=== PATIENT | female | born 1945 | race Caucasian/White ===

== ENCOUNTER → 2018-12-11 16:34 | Outpatient (CLI) | payer MEDICARE, OTHER, SELFPAY ==
--- NOTE | 2018-12-11 | DI.MG.S_ITS ---
BILATERAL DIGITAL SCREENING MAMMOGRAM 3D/2D WITH CAD: 12/11/2018 CLINICAL: Routine screening. Family history of breast cancer. Comparison is made to exams dated: 09/26/2017 mammogram, 09/25/2016 mammogram, and 09/09/2015 mammogram - [facility]. The tissue of both breasts is heterogeneously dense. This may lower the sensitivity of mammography. Current study was also evaluated with a Computer Aided Detection (CAD) system. No significant masses, calcifications, or other findings are seen in either breast. There has been no significant interval change. IMPRESSION: NEGATIVE There is no mammographic evidence of malignancy. A 1 year screening mammogram is recommended. This exam was interpreted at Station ID: [id number]. NOTE: For mammograms, a report in lay terms will be sent to the patient. Approximately 15% of breast malignancies will not be visualized mammographically. In the management of a palpable breast mass, a negative mammogram must not discourage biopsy of a clinically suspicious lesion. Electronically Signed By: Ritchie rae/lenin:12/11/2018 17:25:54 letter sent: Normal Exam ACR BI-RADS Category 1: Negative 3341F
== END ==
PROVIDERS: Family Provider Family Medicine; PCP Family Medicine; Visit Provider Family Medicine
DX: Z12.31 Encounter for screening mammogram for malignant neoplasm of breast (principal); Z80.3 Family history of malignant neoplasm of breast
CPT/HCPCS: 77063; 77067

== ENCOUNTER 2019-12-08 11:51 | Day surgery (SDC) | payer MEDICARE, OTHER, SELFPAY ==
--- NOTE | 2019-12-08 10:54 | PM.HP.1 ---
History of Present Illness History of Present Illness Date Patient Seen: 12/08/19 Time Patient Seen: 12:55 Chief complaint: [id number] SCREENING COLONOSCOPY Narrative: 74 year old female comes in today for consideration of a screening colonoscopy. Last colonoscopy in 2007 showed a small hyperplastic polyp in the sigmoid colon and marked diverticulosis in the sigmoid and transverse colon. There have been no lower GI symptoms suggesting disease such as change in bowel habits, bleeding, abdominal pain or anemia. There's been no family history of colon cancer or colon polyps. Overall health issues have been stable, including no major cardiac events for at least 6 weeks. PCP: Dr. Doran Past medical history: Dysuria frequency syndrome Achilles tendinitis Left breast lump Hypertension Hyperlipidemia Osteopenia Past surgical history: Inguinal hernia, 1979 Left breast cyst removal, 1984 Family history: No colon cancer or colon polyps. 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 Meds Home Medications and Allergies Home Medications Medication Instructions Recorded Confirmed Type Fish Oil (#FISH OIL CONCENTRATE) 1 sgl PO Q DAY #0 04/22/12 12/08/19 History ascorbic acid (vitamin C) 1,000 mg PO QDAY #0 04/22/12 12/08/19 History lisinopril 10 mg PO QDAY #0 04/22/12 12/08/19 History loratadine [Claritin] 10 mg PO QDAY #0 04/22/12 12/08/19 History Allergies Allergy/AdvReac Type Severity Reaction Status Date / Time No Known Drug Allergies Allergy Verified 12/08/19 12:08 Review of Systems Review of Systems ROS: Yes All systems reviewed with the patient and are negative except as otherwise documented Exam Narrative Exam Narrative: GENERAL: Alert and oriented, appearing stated age and in no acute distress. HEENT: Head normocephalic/atraumatic. LUNGS: Clear to ausculation bilaterally, no wheezes, rhonchi or rales. CV: Normal S1 and S2 with regular rate and rhythm, no audible murmurs, rubs or gallops. ABDOMEN: Soft, non-tender, non-distended, no organomegaly. Positive bowel sounds. EXTREMITIES: No clubbing, cyanosis, or edema. NEURO: Cranial nerves II through XII grossly intact, no focal deficits. PSYCH: Alert and oriented x 3. SKIN: No concerning lesions. Assessment & Plan Assessment & Plan narrative: 1. Screening for colon cancer 2. History of hyperplastic polyp 3. History of diverticulosis Plan for colonoscopy. The nature and character of the procedure as well as anticipated results were discussed. The possibility of not completing the procedure was also discussed. Possible complications including aspiration pneumonia, bleeding, perforation and reaction to medications either for sedation or preparation and missed lesions were discussed. Questions were answered and proceeding to the colonoscopy was elected. Informed consent signed. I sincerely appreciate the referral allowing me to participate in this patient's care. Please contact me with any questions or concerns.
--- NOTE | 2019-12-08 10:59 | PM.OP.ENDO ---
Operative Date/Time/Diagnoses Date of procedure: 12/08/19 Time of procedure: 13:13 Pre-op diagnosis: 1. Screening for colon cancer 2. History of diverticulosis 3. History of hyperplastic polyp, sigmoid Post-op diagnosis: other (1. Incomplete colonoscopy secondary to poor prep, 2. Severe diverticulosis, sigmoid colon) Procedure & Clinicians Study performed: Colonoscopy Same procedure as scheduled: No Indications: 1. Screening for colon cancer 2. History of diverticulosis 3. History of hyperplastic polyp, sigmoid Surgeon: Flavia Young Procedure Notes SCOAP/Timeout: 13:12 Procedure in detail: ENDOSCOPIST: Flavia Young MD Sedation RN: Renuka Garcia RN Sedation start time: 13:13 Sedation end time: 14:13 PROCEDURE: INCOMPLETE COLONOSCOPY INDICATIONS: 1. Screening for colon cancer 2. History of diverticulosis 3. History of sigmoid hyperplastic polyp MEDICATION: Levsin 0.125 mg sublingual, incremental doses of Versed and fentanyl until appropriate level sedation achieved. ASA CLASS: 2 COMPLICATIONS: None EXTENT OF PROCEDURE: 50 cm. QUALITY OF PREP: Poor with portions of solid stool throughout. PROCEDURE: Prior to insertion of the colonoscope, a digital rectal examination was accomplished with circumferential palpation of the distal rectal mucosa without significant findings being noted. The high-definition pediatric colonoscope was passed into the rectum and extremely poor prep was noted. Secondary to severe diverticulosis, copious amounts of solid stool balls were noted throughout and copious washing was done to try to remove the stool. The 1st colonoscope became clogged with stool and it was replaced with a 2nd colonoscope. Procedure was abandoned at 50 cm secondary to poor prep. IMPRESSION: 1. Incomplete colonoscopy secondary to poor prep 2. Severe diverticulosis, sigmoid colon PLAN: 1. Repeat colonoscopy in 1 year secondary to poor prep. Recommend CT colonography secondary to severe diverticulosis. The possibility of a missed lesion including a malignancy has been discussed with the patient previously. Potential alarm symptoms have been discussed and should be reported immediately. Scope withdrawal time: N/A Sedation minutes: 60 Specimen(s): none sent Complications: none Post-procedure Disposition: PACU
[2019-12-08] MEDS: SODIUM CHLORIDE 0.9% 1,000 ML 200 ML IV ×2 (12:12→13:57)
[2019-12-08 12:14] VITALS: BP 141/84; PULSE 90; RESP 14; TEMP 36.5; O2SAT 98
[2019-12-08 12:15] VITALS: BMI 24.3
[2019-12-08] MEDS: HYOSCYAMINE 0.125 MG TABLET PO (13:04)
[2019-12-08] MEDS: MIDAZOLAM 5 MG/5 ML VIAL IV (14:17)
[2019-12-08] MEDS: fentaNYL 250 MCG/5 ML INJ IV (14:18)
[2019-12-08 14:28] VITALS: BP 109/73; PULSE 66; RESP 16; TEMP 36.7; O2SAT 100
[2019-12-08 14:36] VITALS: BP 117/71; PULSE 71; RESP 68; TEMP 36.7; O2SAT 100
== END 2019-12-08 15:00 | disposition home or self-care (01) ==
PROVIDERS: Family Provider Family Medicine; PCP Family Medicine; Referring Provider Family Medicine; Visit Provider Student in an Organized Health Care Education/Training Program
PROC: 0DJD8ZZ Inspection of Lower Intestinal Tract, Via Natural or Artificial Opening Endoscopic (ICD-10-PCS; CPT 45378; principal; 2019-12-08 13:00)
DX: Z12.11 Encounter for screening for malignant neoplasm of colon (principal); Z86.010 Personal history of colon polyps; K57.30 Diverticulosis of large intestine without perforation or abscess without bleeding
CPT/HCPCS: G0104; J2250; J3010

== ENCOUNTER → 2020-03-26 13:02 | Outpatient (CLI) | payer MEDICARE, OTHER, SELFPAY ==
--- NOTE | 2020-03-26 13:05 | DI.MG.S_ITS ---
BILATERAL DIGITAL SCREENING MAMMOGRAM 3D/2D WITH CAD: 03/26/2020 CLINICAL: Routine screening. Family history of breast cancer. Comparison is made to exams dated: 12/11/2018 mammogram, 09/26/2017 mammogram, and 09/25/2016 mammogram - [facility]. The tissue of both breasts is heterogeneously dense. This may lower the sensitivity of mammography. Current study was also evaluated with a Computer Aided Detection (CAD) system. No significant masses, calcifications, or other findings are seen in either breast. There has been no significant interval change. IMPRESSION: NEGATIVE There is no mammographic evidence of malignancy. A 1 year screening mammogram is recommended. This exam was interpreted at Station ID: [id number]. NOTE: For mammograms, a report in lay terms will be sent to the patient. Approximately 15% of breast malignancies will not be visualized mammographically. In the management of a palpable breast mass, a negative mammogram must not discourage biopsy of a clinically suspicious lesion. Electronically Signed By: Sharon cobian/lenin:03/26/2020 18:53:39 letter sent: Normal Exam ACR BI-RADS Category 1: Negative 3341F
== END ==
PROVIDERS: Family Provider Family Medicine; PCP Family Medicine; Referring Provider Family Medicine; Visit Provider Family Medicine
DX: Z12.31 Encounter for screening mammogram for malignant neoplasm of breast (principal); Z80.3 Family history of malignant neoplasm of breast
CPT/HCPCS: 77063; 77067

== ENCOUNTER → 2020-11-03 11:54 | Outpatient (CLI) | payer MEDICARE, OTHER, SELFPAY ==
[2020-11-03] MEDS: COVID-19 VACC #1, MRNA(MOD) 100 MCG/0.5 ML VIAL IM (12:12)
== END ==
PROVIDERS: Family Provider Family Medicine; PCP Family Medicine; Visit Provider Internal Medicine
DX: Z23 Encounter for immunization (principal)
CPT/HCPCS: 0011A; 91301

== ENCOUNTER → 2020-12-01 12:09 | Outpatient (CLI) | payer MEDICARE, OTHER, SELFPAY ==
[2020-12-01] MEDS: COVID-19 VACC #2, MRNA(MOD) 100 MCG/0.5 ML VIAL IM (12:13)
== END ==
PROVIDERS: Visit Provider Internal Medicine
DX: Z23 Encounter for immunization (principal)
CPT/HCPCS: 0012A; 91301

== ENCOUNTER → 2021-03-24 14:49 | Outpatient (CLI) | payer MEDICARE, OTHER, SELFPAY ==
--- NOTE | 2021-03-24 14:54 | DI.US.S_ITS ---
PROCEDURE: US PERIPH VENOUS LOW EXTREM RT INDICATIONS: Pain in right leg TECHNIQUE: Real-time imaging, as well as color and pulse Doppler interrogation, were performed of the lower extremity deep veins from the inguinal ligament to the popliteal fossa. COMPARISON: None. FINDINGS: There is echogenic thrombus within the peroneal vein at the level of the ankle. The common femoral, femoral and popliteal veins are normally compressible and free of intraluminal thrombus. Color and pulse Doppler demonstrate normal phasic intraluminal flow. There is normal augmentation response to distal compression maneuver. IMPRESSION: Acute occlusive thrombus within the peroneal vein at the level of the ankle. No deep venous thrombosis identified elsewhere. Dictated by: Matthew Bran M.D. on 03/24/2021 at 15:33 Approved by: Matthew Bran M.D. on 03/24/2021 at 15:34
== END ==
PROVIDERS: PCP Family Medicine; Referring Provider Family Medicine; Visit Provider Family Medicine
DX: I82.451 Acute embolism and thrombosis of right peroneal vein (principal); R60.0 Localized edema; M79.604 Pain in right leg
CPT/HCPCS: 93971

== ENCOUNTER → 2021-03-28 11:03 | Outpatient (CLI) | payer MEDICARE, OTHER, SELFPAY ==
--- NOTE | 2021-03-28 11:06 | DI.MG.S_ITS ---
BILATERAL DIGITAL SCREENING MAMMOGRAM 3D/2D WITH CAD: 03/28/2021 CLINICAL: Routine screening. Family history of breast cancer. Comparison is made to exams dated: 03/26/2020 mammogram, 12/11/2018 mammogram, and 09/26/2017 mammogram - [facility]. The tissue of both breasts is heterogeneously dense. This may lower the sensitivity of mammography. Current study was also evaluated with a Computer Aided Detection (CAD) system. No significant masses, calcifications, or other findings are seen in either breast. There has been no significant interval change. IMPRESSION: NEGATIVE There is no mammographic evidence of malignancy. A 1 year screening mammogram is recommended. This exam was interpreted at Station ID: [id number]. NOTE: For mammograms, a report in lay terms will be sent to the patient. Approximately 15% of breast malignancies will not be visualized mammographically. In the management of a palpable breast mass, a negative mammogram must not discourage biopsy of a clinically suspicious lesion. Electronically Signed By: Sharon cobian/lenin:03/28/2021 13:21:09 letter sent: Normal Exam ACR BI-RADS Category 1: Negative 3341F
== END ==
PROVIDERS: PCP Family Medicine; Referring Provider Family Medicine; Visit Provider Family Medicine
DX: Z12.31 Encounter for screening mammogram for malignant neoplasm of breast (principal); Z80.3 Family history of malignant neoplasm of breast
CPT/HCPCS: 77063; 77067

== ENCOUNTER → 2021-06-08 16:21 | Outpatient (CLI) | payer MEDICARE, OTHER, SELFPAY ==
--- NOTE | 2021-06-08 | DI.RAD.S_ITS ---
PROCEDURE: XR KNEE RT 3V INDICATIONS: right knee pain TECHNIQUE: 3 views of the knee were acquired. COMPARISON: None. FINDINGS: Bones: No fractures or dislocations. No suspicious bony lesions. Mild tricompartmental periarticular osteophyte formation and joint space narrowing. Bony excrescence along the medial aspect of the distal femoral metadiaphysis likely and osteo chondroma. Soft tissues: Small joint effusion. No suspicious soft tissue calcifications. IMPRESSION: Mild tricompartmental knee joint degeneration. Presumed osteochondroma involving the distal femoral metaphysis. Recommend comparison with prior imaging of the right knee and if none are available, follow-up plain film in 3 months is recommended. Dictated by: Haja Lackey [facility] Interpreted: Prince Green MD on 06/08/2021 at 16:47 Transcribed by: JUAN on 06/08/2021 at 16:49 Approved by: Prince Green M.D. on 06/08/2021 at 17:19
== END ==
PROVIDERS: PCP Family Medicine; Referring Provider Family Medicine; Visit Provider Family Medicine
DX: M25.561 Pain in right knee (principal); M17.11 Unilateral primary osteoarthritis, right knee
CPT/HCPCS: 73562

== ENCOUNTER → 2021-06-30 12:05 | Outpatient (CLI) | payer MEDICARE, OTHER, SELFPAY ==
--- NOTE | 2021-06-30 | DI.US.S_ITS ---
PROCEDURE: US [facility] VENOUS LOW EXTREM RT INDICATIONS: F/U DVT RIGHT LEG TECHNIQUE: Real-time imaging, as well as color and pulse Doppler interrogation, were performed of the lower extremity deep veins from the inguinal ligament to the popliteal fossa. COMPARISON: [facility], [facility]] VENOUS LOW EXTREM RT, 03/24/2021, 14:08. FINDINGS: Stable distal venous thrombosis can be seen within the peroneal vein at the level of the ankle. No additional findings of venous thrombosis can be seen. A Parry's cyst is seen that measures 5.4 x 1.7 x 3.9 cm. IMPRESSION: Stable distal venous thrombosis within the peroneal vein at the level of the ankle, without more proximal venous thrombosis identified. Dictated by: Sanchez Virgen M.D. on 06/30/2021 at 12:49 Approved by: Sanchez Virgen M.D. on 06/30/2021 at 12:50
== END ==
PROVIDERS: PCP Family Medicine; Referring Provider Family Medicine; Visit Provider Family Medicine
DX: I80.209 Phlebitis and thrombophlebitis of unspecified deep vessels of unspecified lower extremity (principal)
CPT/HCPCS: 93971

== ENCOUNTER → 2021-09-22 12:01 | Outpatient (CLI) | payer MEDICARE, OTHER, SELFPAY ==
--- NOTE | 2021-09-22 12:04 | DI.US.S_ITS ---
PROCEDURE: PERIP VENOUS LOW EXTREM RT INDICATIONS: DVT FOLLOW UP TECHNIQUE: Real-time imaging, as well as color and pulse Doppler interrogation, were performed of the lower extremity deep veins from the inguinal ligament to the popliteal fossa. COMPARISON: [facility], [facility] VENOUS LOW EXTREM RT, 03/24/2021, 14:08. [facility], PERIP VENOUS LOW EXTREM RT, 06/30/2021, 12:27. FINDINGS: Stable chronic thrombus within the right peroneal vein which as filling defect and is noncompressible. The common femoral, femoral and popliteal veins are normally compressible, and free of intraluminal thrombus. Color and pulse Doppler demonstrate normal phasic intraluminal flow. There is normal augmentation response to distal compression maneuver. 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 Dictated by: Salome Hackett M.D. on 09/22/2021 at 17:40 Approved by: Salome Hackett M.D. on 09/22/2021 at 17:43
== END ==
PROVIDERS: PCP Family Medicine; Referring Provider Family Medicine; Visit Provider Family Medicine
DX: I82.551 Chronic embolism and thrombosis of right peroneal vein (principal)
CPT/HCPCS: 93971

== ENCOUNTER → 2022-04-03 15:02 | Outpatient (CLI) | payer MEDICARE, OTHER, SELFPAY ==
--- NOTE | 2022-04-03 | DI.US.S_ITS ---
PROCEDURE: US PERIPH VENOUS LOW EXTREM RT INDICATIONS: DVT FOLLOW UP TECHNIQUE: Real-time imaging, as well as color and pulse Doppler interrogation, were performed of the lower extremity deep veins from the inguinal ligament to the popliteal fossa. COMPARISON: , , US [facility] VENOUS LOW EXTREM RT, 09/22/2021, 12:23. FINDINGS: The common femoral, femoral and popliteal veins are normally compressible, and free of intraluminal thrombus. Color and pulse Doppler demonstrate normal phasic intraluminal flow. There is normal augmentation response to distal compression maneuver. Complex Parry's cyst measuring up to 7.8 cm. IMPRESSION: No acute or chronic DVT identified on today's examination. Popliteal Parry's cyst measuring up to 7.8 cm. Dictated by: Haja Lackey [facility] Interpreted: Anna Bravo MD on 04/03/2022 at 16:17 Transcribed by: ALICIA on 04/03/2022 at 16:18 Approved by: Anna Bravo MD, PhD on 04/03/2022 at 17:37
--- NOTE | 2022-04-03 | DI.MG.S_ITS ---
BILATERAL DIGITAL SCREENING MAMMOGRAM 3D/2D WITH CAD: 04/03/2022 CLINICAL: Routine screening. Family history of breast cancer. Comparison is made to exams dated: 03/28/2021 mammogram, 12/11/2018 mammogram, and 03/26/2020 mammogram - [facility]. The tissue of both breasts is heterogeneously dense. This may lower the sensitivity of mammography. Current study was also evaluated with a Computer Aided Detection (CAD) system. There are benign calcifications in the right breast. There are mole markers on the right breast. There is a mole marker on the left breast. No significant masses, calcifications, or other findings are seen in either breast. There has been no significant interval change. IMPRESSION: BENIGN There is no mammographic evidence of malignancy. A 1 year screening mammogram is recommended. Based on the Tyrer Cuzick model (a risk assessment model) the patient's lifetime risk is 5.9% and her 10 year risk is 5.9%. According to the ACR, ACS, and NCCN guidelines, an annual breast MRI exam along with mammogram is recommended if the patient's lifetime risk is 20% or greater. This exam was interpreted at Station ID: [id number]. NOTE: For mammograms, a report in lay terms will be sent to the patient. Approximately 15% of breast malignancies will not be visualized mammographically. In the management of a palpable breast mass, a negative mammogram must not discourage biopsy of a clinically suspicious lesion. Electronically Signed By: Rohan Matias acr/lenin:04/03/2022 16:20:04 letter sent: Normal Exam ACR BI-RADS Category 2: Benign Finding(s) 3342F
== END ==
PROVIDERS: PCP Family Medicine; Referring Provider Family Medicine; Visit Provider Family Medicine
DX: Z12.31 Encounter for screening mammogram for malignant neoplasm of breast (principal); Z80.3 Family history of malignant neoplasm of breast; Z09 Encounter for follow-up examination after completed treatment for conditions other than malignant neoplasm; Z86.718 Personal history of other venous thrombosis and embolism; M71.21 Synovial cyst of popliteal space [Baker], right knee
CPT/HCPCS: 77063; 77067; 93971

== ENCOUNTER → 2022-05-11 14:30 | Outpatient (CLI) | payer MEDICARE, OTHER, SELFPAY ==
[2022-05-11 16:00] LABS: Add Manual Diff / Slide Review NO; Basophils Absolute Auto 0 /uL (0-100); Basophils Percent Auto 0.5 % (0-2); Eosinophils Absolute Auto 100 /uL (0-450); Eosinophils Percent Auto 2.3 % (2-4); Hematocrit 39.5 % (36-46); Hemoglobin 13.5 g/dL (12.0-16.0); Lymphocytes Absolute Auto 1400 /uL (1100-4500); Lymphocytes Percent Auto 22.4 % (25-40); Mean Corpuscular Hemoglobin 29.8 PG (26-34); Mean Corpuscular Volume 87.6 fL (80-100); Monocytes Absolute Auto 500 /uL (0-900); Monocytes Percent Auto 8.4 % (3-14); Neutrophils Absolute Auto 4200 /uL (1500-7000); Neutrophils Percent Auto 66.4 % (50-75); Platelet Count 248 X10^3/uL (150-400); Red Blood Cell Count 4.51 X10^6/uL (4.0-5.2); Red Cell Distribution Width 13.1 % (11.6-14.8); White Blood Cell Count 6.4 X10^3/uL (4.5-11.0)
[2022-05-11 21:05] LABS: BUN Creatinine Ratio 28.4 (6-22); Blood Urea Nitrogen 21 mg/dL (7-17); Carbon Dioxide 26 mmol/L (22-32); Chloride 105 mmol/L (98-107); Estimated Glomerular Filt Rate > 60 mL/min (>60); Glucose 108 mg/dL (80-110); HEMOLYSIS 23 (0-50); Potassium 4.4 mmol/L (3.4-5.1); Sodium 138 mmol/L (137-145)
== END ==
PROVIDERS: PCP Family Medicine; Referring Provider Orthopaedic Surgery; Visit Provider Orthopaedic Surgery
DX: Z01.818 Encounter for other preprocedural examination (principal); Z01.812 Encounter for preprocedural laboratory examination
CPT/HCPCS: 36415; 80048; 85025; 93005

== ENCOUNTER → 2022-06-05 11:28 | Outpatient (CLI) | payer MEDICARE, OTHER, SELFPAY ==
[2022-06-05 12:01] LABS: COVID19 -Nasal RAPID Negative (Negative)
== END ==
PROVIDERS: PCP Family Medicine; Referring Provider Orthopaedic Surgery; Visit Provider Orthopaedic Surgery
DX: Z20.822 Contact with and (suspected) exposure to COVID-19 (principal)
CPT/HCPCS: 87635; C9803

== ENCOUNTER 2022-06-08 09:46 | Observation (INO) | payer MEDICARE, OTHER, SELFPAY ==
[2022-05-31 09:23] VITALS: BMI 25.0
[2022-06-07] VITALS (22 sets, daily range): BP systolic 73–153; BP diastolic 34–95; PULSE 52–95; RESP 10–21; TEMP 35.6–36.8; O2SAT 96–100; BMI 24.7
--- NOTE | 2022-06-07 06:00 | DI.RAD.S_ITS ---
PROCEDURE: XR KNEE RT 1TO2V INDICATIONS: right total knee TECHNIQUE: 3 views of the knee were acquired. COMPARISON: [facility], , XR KNEE RT 3V, 06/08/2021, 16:26. FINDINGS: Bones: No fractures or dislocations. No suspicious bony lesions. Medial distal femoral osteochondroma is again noted, similar prior exam. Total knee arthroplasty in good position. Postprocedural soft tissue air present. No fracture. Soft tissues: No joint effusion. No suspicious soft tissue calcifications. IMPRESSION: Total right knee arthroplasty in good position. Stable distal femoral osteochondroma exostosis Approved by: dAithya De La Cruz M.D. on 06/07/2022 at 13:49
[2022-06-07] MEDS: CELECOXIB 200 MG CAPSULE PO (11:22)
[2022-06-07] MEDS: LACTATED RINGERS 1,000 ML 42 ML IV ×2 (11:22→14:23)
[2022-06-07] MEDS: ACETAMINOPHEN 325 MG TABLET 975 MG PO (11:22)
--- NOTE | 2022-06-07 11:40 | PM.PREOP ---
Pre-operative Note COVID-19 COVID-19 status: Negative Result date/Date tested (Pos, Neg/Pending): 06/05/22 Interval Note History & Physical reviewed/Exam performed by Physician: Yes Changes to H&P: No
[2022-06-07] MEDS: CEFAZOLIN 2 GM/100 ML PREMIX 100 ML IV (12:22)
[2022-06-07] MEDS: TRANEXAMIC ACID 1,000 MG VIAL 2000 MG INJ ×2 (12:25→13:28)
--- NOTE | 2022-06-07 12:43 | SUR.OPER ---
Supine on padded OR bed. Pillow under head, arms secured on padded armboards <90 degree abduction. Safety belt across torso. Non-operative leg secured with tape over blanket over lower leg. Operative leg secured in [place].
[2022-06-07] MEDS: BUPIVACAINE LIPOSOME 266 MG/20 ML VIAL INJ (12:53)
[2022-06-07] MEDS: MORPHINE 4 MG/ML INJ INJ (12:53)
[2022-06-07] MEDS: BUPIVACAINE 0.5% W/ EPI (PF) 30 ML VIAL INJ (12:56)
--- NOTE | 2022-06-07 13:45 | P.OP_ITS ---
Operative Date/Time/Diagnoses Date of procedure: 06/07/22 Time of procedure: 13:45 Pre-op diagnosis: Right knee osteoarthritis Post-op diagnosis: same Procedure & Clinicians Procedure: Right total knee replacement Same procedure as scheduled: Yes Indications: The patient has had progressively worsening right knee pain with radiographic changes consistent with arthritis. Non-operative management has failed and the patient has requested total knee replacement. The risks, benefits and alternatives to surgery were discussed with the patient prior to proceeding. Risks discussed included, but were not limited to, failure to relieve pain, stiffness, infection, nerve damage, deep venous thrombosis, pulmonary embolism, stroke, coma, heart attack, permanent paralysis and , as well as the potential need for eventual revision of the prosthetic. Surgeon: Jarvis Hobbs Farm Operations Manager: eJan Rubio Click Yes if Unassisted: No Anesthesia Type: General, Spinal and Local Operative Notes Findings: Severe medial and moderate patellofemoral and lateral osteoarthritis. Closure Type: primary Specimen(s): none sent Prosthetic devices, grafts, tissues, transplants, or devices: Implants used in this procedure were manufactured by the [employer] and [employer] and included the BCS II Journey total knee replacement with a size 6 right cobalt chromium femoral component, a size 6 right non porous tibial base plate, a 9 mm cross-linked polyethylene tibial insert and a 32 mm oval Dayami II patella. Applied: implant(s) Estimated Blood Loss (mL): 25 Blood products transfused: none Tourniquet time (min): 46 Procedure in detail: The patient was seen in the pre-operative area, where the patient identified the right knee as the operative site and this was marked with my initials. The patient received pre-operative antibiotics, and was taken to the operating room and placed on the operative table in the supine position. After satisfactory anesthesia, a time clock mechanic out was performed. The right leg was encircled with a tourniquet about the proximal thigh, and the leg was prepared from the toes to the tourniquet with ChloroPrep in the usual fashion and draped through sterile drapes. The leg was elevated and exsanguinated with Eschmark bandage and the tourniquet inflated to 250 mmHg pressure. The knee was approached through an approximately 18 cm incision centered over the patella and carried into the knee through a medial parapatellar arthrotomy. The anterior osteophytes and soft tissues were removed. The rotational landmarks of [place]'s line and the transepicondylar axis were marked on the femur with electrocautery, and intramedullary guide holes for the femur and tibia were created. The distal femoral cut was made in 6 degrees of valgus using the intramedullary guide at the primary cut setting. The proximal tibial cut was then made using the intramedullary guide, taking 9 mm of bone off the less involved side. The extension gap was checked and the rotation of the femoral component confirmed with the gap balancing system. The anterior, posterior and chamfer cuts were then made. The posterior osteophytes and soft tissues were then removed. The posterior capsule was injected with part of a mixture of 60 ml 0.25% Marcaine mixed with 20 ml Exparel and 4 mg of morphine for post-operative pain control. The remainder of this mixture was injected into the capsule and subcutaneous tissues during cement curing. The tibia was prepared with the rotation set by an extra medullary guide. Trial tibial and femoral components were then placed and the intercondylar notch cut through the femoral trial. Range of motion was 0-135 degrees, with good stability throughout the range. The patella was then cut to accommodate the patellar prosthetic. There was no need for a lateral release. The trials were then removed, and the femoral hole plugged with a bone plug. The bone was prepared with pulsatile lavage, and dried with a sponge. Cement was applied and the final prosthetics placed. Excess cement was removed during and after cement curing. After confirming there was no extruded cement posteriorly, the final tibial insert was placed. The knee was copiously irrigated and the tourniquet deflated. Hemostasis was obtained. The capsule was closed with interrupted # 2 polyester suture. The subcutaneous layer was closed with 3-0 Vicryl, and the skin with a running 3-0 V-Lock suture and Dermabond. An Aquacel Ag dressing was applied and the patient was taken to recovery having tolerated the procedure well. The services of Mr. Rubio were required as a skilled assistant banquet manager to provide retraction and exposure and positioning of the limb for this case. If he had not been available the case would have taken considerably longer at greater risk to the patient. Complications: none Post-operative Condition: stable Disposition: PACU Plan for aftercare: The patient will be maintained on a standard total knee replacement protocol with weight bearing as tolerated. The patient will receive aspirin and sequential compression devices for DVT prophylaxis. The patient will be discharged home when safe for the home environment.
--- NOTE | 2022-06-07 14:35 | SUR.PHASEI ---
Report called to Racquel Alvares RN
--- NOTE | 2022-06-07 15:06 | SUR.PHASEI ---
Patient transferred by stretcher to the floor with her belongings bag. Patient transferred to the bed by slider board. Patient was incontinent of urine during the transfer. VS stable. Right knee dressing CDI. IV saline locked. Report given to
[2022-06-07] MEDS: LACTATED RINGERS 1,000 ML 100 ML IV (15:30)
[2022-06-07] MEDS: IBUPROFEN 400 MG TABLET PO ×2 (17:03→20:44)
--- NOTE | 2022-06-07 17:15 | PC.NURSE ---
Pt arrived from PACU @ 1450 A/O denies discomfort. LR infusing into LFA @ 100cc/hr via pump w/o incidence. Aquacell/ Hima Dsg to right knee CDI Call li8ght w/in reach, pt calls appropriately for needs. Continue w/plan of care.
[2022-06-07] MEDS: DOCUSATE 100 MG CAPSULE PO (20:41)
[2022-06-07] MEDS: ASPIRIN EC 81 MG TABLET PO (20:41)
[2022-06-07] MEDS: lisinopriL 10 MG TABLET PO (20:42)
[2022-06-07] MEDS: LORATADINE 10 MG TABLET PO (20:44)
[2022-06-08] MEDS: ACETAMINOPHEN 325 MG TABLET 650 MG PO ×2 (00:42→05:58)
[2022-06-08] MEDS: IBUPROFEN 400 MG TABLET PO ×3 (00:42→08:46)
[2022-06-08] MEDS: LACTATED RINGERS 1,000 ML 100 ML IV (00:47)
[2022-06-08 01:07] VITALS: BP 121/64; PULSE 75; RESP 17; TEMP 36.3; O2SAT 95
[2022-06-08 05:08] VITALS: BP 112/65; PULSE 71; RESP 17; TEMP 36.3; O2SAT 95
--- NOTE | 2022-06-08 07:13 | PM.DS.1 ---
History of Present Illness History of Present Illness Date Patient Seen: 06/08/22 Time Patient Seen: 07:13 Chief complaint: right tka Narrative: The history and physical are contained in the chart previously completed note. Please refer to that note for this information. Discharge Providers Provider Date of admission: June 07, 2022 Discharge Date: 06/08/22 Primary care physician: Alexys Norwood MD Consults: 06/07/22 15:04 Consult to Discharge Planning Routine Comment: Consult to Physical Therapy Evaluate & Treat Comment: Physician Instructions: postop TKA protocol Discharge provider: Jarvis Hobbs MD Summary Hospital Course Discharge Diagnosis: 1. Right knee osteoarthritis Hospital Course: The patient was admitted to the hospital and taken directly to the operating room on June 07, 2022. She underwent a right total knee replacement without complications. On postoperative day 1 she was comfortable and it is anticipated she will be ready for discharge later in the day. Status at Discharge Cognitive/behavioral status at discharge: at baseline, oriented Functional status at discharge: uses cane/walker Overall status at discharge: patient is progressing back to baseline Time Spent with Patient Time spent: Less than 30 minutes Exam Vital Signs (past 8 hours): - 06/08/22 01:07 06/08/22 05:08 Temperature 97.3 F L 97.4 F L Pulse Rate 75 71 Respiratory Rate 17 17 Blood Pressure 121/64 112/65 Pulse Oximetry 95 95 Oxygen Flow Rate 0 0 Oxygen Delivery Method Room Air Oxygen Flow Rate 0 Narrative Exam Narrative: Right knee wound is dressed with no drainage on the bandage. Calf is soft. Light touch and motion are intact in the right lower extremity. [facility] Medical History (Updated 05/31/22 @ 10:16 by Jennifre Vega RN) Anesthesia complication BCC (basal cell carcinoma) Diverticulitis Diverticulosis DVT (deep venous thrombosis) (03/2021) Easy bruisability History of Mohs micrographic surgery for skin cancer HLD (hyperlipidemia) HTN (hypertension) Raynaud's syndrome Sinus drainage Surgical History (Updated 05/31/22 @ 10:15 by Jennifer Vega RN) Hx of colonoscopy Hx of hernia repair Hx of removal of cyst Hx of tonsillectomy Social History household members: spouse Smoking Status: Never smoker alcohol intake: current Discharge Assessment & Plan Assessment and Plan Assessment: Stable postoperative day 1 status post right total knee replacement. She has good pain control. It is anticipated she will be able to be discharged later this morning. Plan of Treatment: Physical therapy this morning followed by discharge. Follow up in my office in 10-14 days. Discharge prescriptions for oxycodone have been sent to the pharmacy. She is been instructed in the use of Aleve and Tylenol for additional pain control and with the use of low-dose aspirin for DVT prophylaxis. Discharge Plan Discharge Plan Patient Disposition: Home Discharge orders & Medications Discharge Orders: Discharge (Order); Ordered 06/08/22 Ordered By: Jarvis Hobbs Prescriptions: New acetaminophen 325 mg Tablet 650 mg PO Q6HR Qty: 100 0RF aspirin 81 mg Tablet,Delayed Release (Dr/Ec) 81 mg PO BID Qty: 84 0RF oxycodone 5 mg Tablet 5 mg PO Q4H PRN (Reason: Pain, Moderate (4-6)) Qty: 40 0RF Continued lisinopril 10 MG tablet 10 mg PO BEDTIME Qty: 0 loratadine [Claritin] 10 MG tablet 10 mg PO BEDTIME Qty: 0 Changed naproxen sodium [Aleve] 220 mg Capsule 220 mg PO BID Qty: 100 0RF Follow up/Referrals: Jarvis Hobbs MD [Physician] - As previously scheduled (Follow up w/ Kylah Duenas PA-C, on 06/16/2022 @ 1:00 pm at [facility] in [place].) Alexys Norwood MD [Primary Care Provider] - Diet/Activity/Treatments Diet: Diet as Tolerated and Regular Activity: Walk frequently! You may bear weight as tolerated on your right leg. Cold/Heat Therapy: Ice to knee as needed for pain. Skin/Wound/Dressing Care Report to your healthcare provider any signs of infection, such as:: chills, fever, night sweats, unusual drainage and unusual redness Dressing: May remove GUILLAUME wrap and shower. Leave Aquacel dressing in place until follow up appointment. No bathing or otherwise soaking incision. Call office if dressing becomes saturated inside. Visit Report/Discharge Packet Instructions: DI for Knee Replacement Stand Alone Forms: Surgery Discharge Discharge Data Primary Care Provider: Alexys Norwood Attending Provider: Jarvis Hobbs Quality VTE Deep Vein Thrombosis/Pulmonary Embolism Present on Admission: No
[2022-06-08 07:35] LABS: Hematocrit 34.8 % (36-46); Hemoglobin 11.8 g/dL (12.0-16.0)
[2022-06-08 08:45] VITALS: BP 128/57; PULSE 67; RESP 19; TEMP 36.2; O2SAT 100
[2022-06-08] MEDS: DOCUSATE 100 MG CAPSULE PO (08:46)
[2022-06-08] MEDS: ASPIRIN EC 81 MG TABLET PO (08:46)
--- NOTE | 2022-06-08 11:11 | CM.DANOTE ---
DCP Assessment: Confirmed Payor: Medicare & for life PCP: MD Cuco Pt is a 76 y.o. F who presented to the hospital for a scheduled R TKA surgery with Dr. Hobbs. Pt admitted to the floor for further management and evaluation of surgical procedure. DCP met with pt and pt spouse this morning to discuss discharge needs. Pt sitting up in bed. DCP introduced self and role. Pt states she lives in a one story house with her , David, in [place]. They are renting a single story for her recovery. Pt verbalizes that she is independent at baseline and still drives POV. Pt states that she is not going to be driving for the recovery period and David will be there to assist her during this time. Pt states that her friend is going to make her some food when she gets home. PT mukund was pending at time of discussion. No other discharge needs at this time. Whiteboard updated. Pt thankful for discussion. P: Pending PT, pt to discharge home today via spouse POV. Nabila Sorenson RN/DAVID Discharge Planning/Care Management Advanced directive, confirm from FAMILY Start: 06/07/22 15:14 Freq: Q24H Status: Active Protocol: Document 06/07/22 15:14 KMD (Rec: 06/07/22 15:15 KMD [id number]) Advance Directive, confirm on record Time 15:15 Person contacted PT Copy received No CM Discharge Assessment Start: 06/08/22 09:31 Freq: Status: Active Protocol: Document 06/08/22 09:32 AJ (Rec: 06/08/22 09:32 [id number]) Discharge Planning Assessment Assigned Car Detailer Nabila Sorenson RN/DAVID Advance Directives? Yes Advance Directives on File Yes History Provided By Patient Prior Living Arrangements House Household Members spouse Type of transporation used prior to Drives own vehicle admit Independent with ADL's Yes Is patient alert and oriented? Yes Caregiver for Another No Discharge Plan Home Transportation Arrangement Spouse POV Referrals Initiated None needed Additional Comment At this time. Pending PT mukund Whiteboard Updated in Patient Room with Yes name and ext. # of Car Detailer Comment Instructed to call Review Status In Process Please Provide Date Initial DC 06/08/22 Assessment Was Performed Next Review Type Continued Stay Review Pre-Anesthesia Assessment Start: 08/24/22 09:23 Freq: Status: Active Protocol: Document 05/31/22 09:23 [facility] (Rec: 05/31/22 10:37 CAB [id number]) Pre-Anesthesia Assessment Patient Information Reviewed Via Phone Assessment Assessment Completed With Patient Diagnostic Results BMP/CMP,CBC,EKG Comment Labs/ECG @ 05/11/22, COVID screen @ 06/05/22 Primary Care Provider Alexys Norwood Seen Specialist in Last 12 Months Yes Specialist Seen Advertising Rep,Orthopedist Primary Language [place] Satellite Dish Repairer Required No Height 171.45 cm Weight 73.482 kg Body Mass Index (BMI) 25.0 Hearing Ability Normal Visual Assist Glasses Dentition Type Teeth, Missing Barriers to Learning None Hx Anesthesia Reactions Yes: Difficulty waking up, A little goes a long way Hx Family Anesthesia Reaction No Hx Malignant Hyperthermia No Hx Blood Transfusions No Hx Blood Transfusion Reaction No Anesthesia Review Requested Yes: PAC courtesy re: Abnormal Pre-op ECG alcohol intake current alcohol intake frequency holidays/special occasions only Smoking Status Never smoker Substance Use Type does not use Pain Present Pain Reported Musculoskeletal Symptoms Abnormal Gait,Back Pain, Difficulty Walking,Joint Pain History of Falling (Recent or History of Yes ) Patient is completely paralyzed or No completely immobile Mental Status Oriented to own ability Is patient on oxygen? No Does patient have OMALLEY/SOB No Hx Sleep Apnea No CPAP/BIPAP use not prescribed Currently Taking a Beta Abi No Can You Climb a Flight of Stairs Without Yes SOB Hx Chest Pain No Hx SOB No Hx Syncope or Dizziness No Anti-Coagulant Therapy No Has a Marketing Program Manager No Cardiac Testing No Hx Pacemaker/ICD No Pacemaker Rep Required? No Diet Type At Home Regular dysphagia No Gastrointestinal Symptoms Constipation Urinary Catheter Present No Hx Urinary Self Catheterization No Diabetes No Patient No Lactating No Hx Drug Resistant Organism No Presence of External or Internal Medical No Devices Have you had any close contact with No someone diagnosed with COVID-19? Received a COVID vaccine? Yes Received all doses? Yes Marital Status Lives With spouse Prior Living Arrangements House Number of Floors (Floors) Two Floors Support System Spouse Does the Patient Have Assistance After Yes Surgery Patient Discharge Plan Description Return Home Comment Pt advised 1 night length of stay per surgeon Feels Safe in Current Environment Yes Been Physically Hurt or Threatened By a No Person in Current Environment Do you have thoughts of harming yourself None or others? Are you currently considering suicide? No Do you have a plan to hurt yourself or No Plan others? Do You Have Any Spiritual Beliefs That No May Affect Your HC Choices? Do You Have Any Cultural Practices That No May Affect Your HC Choices? Comment [place] Who Can We Speak to About Patient's Care Family, friends Identifying Code for Release of Patient Declines to issue Information Health Care Proxy/Next of Kin David Beltran () Health Care Proxy cell: Emergency Contact Name David Beltran () Emergency Contact cell: Advance Directives? Yes Advance Directives on File Yes Power of Production Bow Maker No PAC Instructions Do not shave/clip surgical site,Durable medical equipment ,Medications to take/avoid, Nasal antibiotic,No ETOH/ petroleum product on skin DOS, NPO,Post-op transportation,Pre -surgical wash,Sensory aids, Sturdy shoes/comfortable clothes,Do not bring valuables and remove jewelry
--- NOTE | 2022-06-08 12:53 | PT.IIE ---
Current Diagnoses Unilateral primary osteoarthritis, right knee (06/07/22) Surgery Performed Operation Date: 06/07/22 12:15 Actual Procedures p Total Knee Arthroplasty(Right) - Jarvis Hobbs MD Surgical History (Last Updated 05/31/22 @ 10:15 by Jennifer Vega, RN) Hx of colonoscopy Hx of hernia repair Hx of removal of cyst Hx of tonsillectomy Medical History (Last Updated 05/31/22 @ 10:16 by Jennifer Vega RN) Anesthesia complication BCC (basal cell carcinoma) Diverticulitis Diverticulosis DVT (deep venous thrombosis) (03/2021) Easy bruisability History of Mohs micrographic surgery for skin cancer HLD (hyperlipidemia) HTN (hypertension) Raynaud's syndrome Sinus drainage Physical Therapy Inpatient Evaluation/Re-Eval M1 PT/OT-IP Prior Functional Status Start: 06/08/22 10:45 Freq: NEEDED Status: Discharge Protocol: Document 06/08/22 10:45 AMB (Rec: 06/08/22 11:15 AMB [id number]) Medical Review Prior Functional Status Medical History Reviewed Yes Communication WFL Mobility and Gait Independent in the community, no AD Social History Household Members spouse Living Arrangements House Number of Floors (Floors) Two Floors Number of Stairs To Enter/Railing? 3, wide steps that she can use the walker on, no railing Home Environment High Toilet,Walk in Shower Home Equipment Front Wheel Walker,Straight Cane Employment Status Retired M2 PT-IP Current Condition Start: 06/08/22 10:45 Freq: NEEDED Status: Discharge Protocol: Document 06/08/22 10:45 AMB (Rec: 06/08/22 11:15 AMB [id number]) Physical Therapy Current Condition Current Condition Evaluation Date 06/08/22 Treatment Diagnosis R TKA Onset Date 06/07/22 M3 PT-IP Subjective Start: 06/08/22 10:45 Freq: NEEDED Status: Discharge Protocol: Document 06/08/22 10:45 AMB (Rec: 06/08/22 11:15 AMB [id number]) Subjective Physical Therapy Visit Type Type Initial Evaluation Visit Start Time 09:45 Visit Stop Time 10:30 Total Visit Minutes 45 Physical Therapy Visit Comments Patient Comments Pt is feeling good, hoping to go home soon M4 PT-IP Mobility and Gait Start: 06/08/22 10:45 Freq: NEEDED Status: Discharge Protocol: Document 06/08/22 10:45 AMB (Rec: 06/08/22 11:15 AMB [id number]) PT-Bed Mobility Assessment Rolling Type of Rolling Roll to Left Level of Assist Standby Assistance Supine to Sit Supine to Sit Standby Assistance Sit to Supine Sit to Supine Independent Scooting Scooting to Edge of Bed Independent PT-Transfer Assessment Sit to and From Stand Sit to and from Stand Standby Assistance Equipment Transfer Assistive Device Gait Belt,Front Wheeled Walker Transfers Transfer Destination Bed,Chair Transfer Technique Stand Step Pivot Transfer Ability Level of Assist Standby Assistance Comments Mobility Comments Took BP in bed, 122/60. Gait Assessment Gait Gait Assistance Required: Contact Guard Assist Distance (Feet) 50 Able to Maintain Weight Bearing Status Yes During Gait Assistive Devices Assistive Device Gait Belt,Front Wheeled Walker Gait Deviations General Gait Pattern Antalgic,Decreased Stride Length,Step-to Gait Factors Limiting Gait Function Factors Limiting Gait Function Decreased Strength,Limited Range of Motion,Pain Comments Gait Comments Pt ambulated with FWW with cueing for safety, in room and out in hallway. Stair Climbing Assessment Evaluation Level of Assist On Stairs Contact Guard Assistance,1 Person Assistance Devices Stair Climbing Assistive Devices Front Wheel Walker Technique/Endurance Stair Climbing Direction Ascend and Descend Stair Climbing Technique Step to Step Number of Steps Climbed 1 Query Text: Comments Stair Climbing Comments Instructed pt and in safe stairs and gaurding, pt able to perform 1 repetition but then became lightheaded and we needed to return to her room. M5 PT-IP Objective Assessments Start: 06/08/22 10:45 Freq: NEEDED Status: Discharge Protocol: Document 06/08/22 09:00 AMB (Rec: 06/08/22 12:53 AMB [id number]) Orientation Orientation/Cognition Level of Alertness Alert Language Function Ability No Deficits Noted Safety Awareness Understands Safety Issues Memory Description No Deficits Noted Gross Range of Motion Upper Extremity ROM Assessment Within Functional Limits Lower Extremity ROM Assessment Right Impaired Impairments Knee flexion grossly 45 degrees Strength Lower Extremity Strength Assessment Right Impaired Hip 4 Knee 3 Ankle 5 M6 PT-IP Treatment Start: 06/08/22 10:45 Freq: NEEDED Status: Discharge Protocol: Document 06/08/22 09:00 AMB (Rec: 06/08/22 12:53 AMB [id number]) Physical Therapy Treatment Exercises Exercises Ankle Pumps,Quad Sets,Heel Slides,Straight Leg Raises, Passive Knee Extension Hang Education Education Provided Post-Op Packet M7 PT-IP Assessment and Plan Start: 06/08/22 10:45 Freq: NEEDED Status: Discharge Protocol: Document 06/08/22 09:00 AMB (Rec: 06/08/22 12:53 AMB [id number]) PT Summary Assessment and Plan Potential Rehabilitation Potential Good Status of Condition at Evaluation Stable Summary Impairments Pain,ROM,Strength,Balance, Transfers,Gait,Activity Tolerance Assessment Summary Sarah had R TKA on 06/07, has been up to the bathroom, denies pain/lightheadedness. Time spent today going over HEP handout, problem solving gait/transfers, specifically car transfer and ascending stairs. Sarah did become lightheaded approx 5 minutes after getting out of bed, she was able to safely return to her bed from the hallway. [place] better once back in bed, answered follow up questions and call light within reach. Despite feeling lightheaded, pt should be safe to return home with . Would recommend limited activity for the next few days but also consistent exercise every hour or so. Goals Bed Mobility Goal Independent Transfer Goal Independent Gait Goal Standby Assistance Gait Distance 100 Days to Meet Goals 1 Frequency of Treatment Frequency Of Treatment Discharge Treatment Plan Physical Therapy Treatment Plan Bed Mobility Training,Transfer Training,Gait Training, Therapeutic Exercise,Balance Retraining Weight Bearing Status Weight Bearing Status Weight Bear as Tolerated Recommendations To Nursing Amount of Assist Needed 1 Person Assist Discharge Recommendations PT Discharge Recommendations Home with Assistance Transportation Needs at Discharge Private Vehicle
== END 2022-06-08 12:00 | disposition home or self-care (01) ==
LOC: OR 15:46 → AC 15:46
PROVIDERS: Admitting Provider Orthopaedic Surgery; PCP Family Medicine; Referring Provider Orthopaedic Surgery; Visit Provider Orthopaedic Surgery
PROC: 0SRC0JZ Replacement of Right Knee Joint with Synthetic Substitute, Open Approach (ICD-10-PCS; CPT 27447; principal; 2022-06-07 12:15)
DX: M17.11 Unilateral primary osteoarthritis, right knee (principal); I10 Essential (primary) hypertension
CPT/HCPCS: 27447; 73560; 85014; 85018; 97110; 97116; 97161; C1776; G0378; C1713; C9290; J0690; J2270

== ENCOUNTER → 2022-12-28 14:14 | Outpatient (CLI) | payer MEDICARE, OTHER, SELFPAY ==
[2022-06-07 15:10] VITALS: BMI 24.7
--- NOTE | 2022-12-28 14:27 | DI.DEXA.S_ITS ---
Indication: postmenopausal; screening for osteoporosis; Referring Provider: MAXINE DAVIDSON Study: Bone densitometry was performed. Exam Date: December 28, 2022 Accession number: [id number] Bone Density: Region BMD T-score Z-score Classification AP Spine(L1-L4) 1.329 2.6 5.0 Normal Femoral Neck (Left) 0.746 -0.9 1.2 Normal Total Hip (Left) 0.853 -0.7 1.1 Normal Femoral Neck (Right) 0.751 -0.9 1.3 Normal Total Hip (Right) 0.815 -1.0 0.8 Normal Total Hip Mean 0.834 -0.9 1.0 Normal World Health Organization criteria for BMD impression classify patients as: Normal (T-score at or above -1.0), Osteopenia (T-score between -1.0 and -2.5), or Osteoporosis (T-score at or below -2.5). 10-year Fracture Risk: FRAX not reported because: All T-scores for Spine Total, Hip Total, Femoral Neck at or above -1.0 Previous Exams: -- Region Exam Age BMD T-score BMD Change BMD Change Date g/cm2 vs Baseline vs Previous -- AP Spine (L1-L4) 12/28/2022 77 1.329 2.6 0.121 (10.0%)# 0.121 (10.0%)# 07/19/2017 71 1.208 1.5 Total Hip(Left) 12/28/2022 77 0.853 -0.7 -0.081 (-8.7%)# -0.081 (-8.7%)# 07/19/2017 71 0.934 -0.1 Total Hip(Right) 12/28/2022 77 0.815 -1.0 -0.047 (-5.5%)# -0.047 (-5.5%)# 07/19/2017 71 0.862 -0.7 -- *Denotes significance at 95% confidence level, LSC for AP Spine = 0.022 g/cm2, LSC for Total Hip = 0.027 g/cm2 # Denotes dissimilar scan types or analysis methods Impression: The patient has normal bone mass. No significant bone loss was observed. Discussion: BONE DENSITY IS ABOVE THE MINIMUM DESIRABLE LEVEL AT ALL SKELETAL SITES TESTED. This patient?s bone mineral density is above the minimum desirable level (T-score -1.0 or better) at all sites measured. The patient should follow a healthful lifestyle (good nutrition with adequate calcium and vitamin D, and appropriate weight-bearing exercise). Follow-Up: Consider repeating this study in 5 years or sooner if there is some new clinical indication. Reported by: DUNIA ANDERSEN M.D. on 12/28/2022 2:37:00 PM.
== END ==
PROVIDERS: PCP Family Medicine; Referring Provider Family Medicine; Visit Provider Family Medicine
DX: Z78.0 Asymptomatic menopausal state (principal)
CPT/HCPCS: 77080

== ENCOUNTER → 2023-06-19 13:58 | Outpatient (CLI) | payer MEDICARE, OTHER, SELFPAY ==
[2022-06-07 15:10] VITALS: BMI 24.7
--- NOTE | 2023-06-19 13:59 | DI.MG.S_ITS ---
BILATERAL DIGITAL SCREENING MAMMOGRAM 3D/2D WITH CAD: 06/19/2023 CLINICAL: Routine screening. Family history of breast cancer. Comparison is made to exams dated: 04/03/2022 mammogram, 03/28/2021 mammogram, and 03/26/2020 mammogram - [facility]. Both breasts are heterogeneously dense, which may obscure small masses (category c / 51-75% glandular tissue). Current study was also evaluated with a Computer Aided Detection (CAD) system. There are multiple round asymmetries in the left breast anterior depth central to the nipple seen on the craniocaudal view only. No other significant masses, calcifications, or other findings are seen in either breast. IMPRESSION: INCOMPLETE: NEEDS ADDITIONAL IMAGING EVALUATION The multiple round asymmetries in the left breast are indeterminate. Additional views with possible ultrasound are recommended. Based on the Tyrer Cuzick model (a risk assessment model) the patient's lifetime risk is 5.4% and her 10 year risk is 0.0%. According to the ACR, ACS, and NCCN guidelines, an annual breast MRI exam along with mammogram is recommended if the patient's lifetime risk is 20% or greater. This exam was interpreted at Station ID: [id number]. NOTE: For mammograms, a report in lay terms will be sent to the patient. Approximately 15% of breast malignancies will not be visualized mammographically. In the management of a palpable breast mass, a negative mammogram must not discourage biopsy of a clinically suspicious lesion. Electronically Signed By: Sharon cobian/lenin:06/19/2023 18:04:37 letter sent: Additional Imaging Needed ACR BI-RADS Category 0: Incomplete 3340F
== END ==
PROVIDERS: PCP Family Medicine; Referring Provider Family Medicine; Visit Provider Family Medicine
DX: Z12.31 Encounter for screening mammogram for malignant neoplasm of breast (principal); Z80.3 Family history of malignant neoplasm of breast
CPT/HCPCS: 77063; 77067

== ENCOUNTER → 2023-07-04 10:10 | Outpatient (CLI) | payer MEDICARE, OTHER, SELFPAY ==
[2022-06-07 15:10] VITALS: BMI 24.7
--- NOTE | 2023-07-04 10:12 | DI.US.S_ITS ---
LIMITED ULTRASOUND OF LEFT BREAST: 07/04/2023 CLINICAL: Patient returns today to evaluate a focal asymmetry in the left breast. Comparison is made to exams dated: 07/04/2023 mammogram, 06/19/2023 mammogram, 04/03/2022 mammogram, 03/28/2021 mammogram, and 03/26/2020 mammogram - [facility]. Color flow ultrasound of the left breast retroareolar was performed. Roberts scale images of the real-time examination were reviewed. Dense fibroglandular tissue but no mass is identifed in the area of the mammographic asymmetry in the left breast retroareolar region. IMPRESSION: NEGATIVE No sonographic abnormality is seen corresponding to the mammographic asymmetry in left breast, which is compatible with normal fibroglandular tissue. There is no sonographic evidence of malignancy. Return to annual mammogram screening schedule is recommended. This exam was interpreted at Station ID: [id number]. Electronically Signed By: Rupesh Figueroa M.D. ar/:07/04/2023 13:36:02 letter sent: Normal Exam Ultrasound BI-RADS: 1 Negative
--- NOTE | 2023-07-04 10:12 | DI.MG.S_ITS ---
UNILATERAL LEFT DIGITAL DIAGNOSTIC MAMMOGRAM 3D/2D WITH ADDITIONAL VIEWS: 07/04/2023 CLINICAL: Additional evaluation requested from prior study. Comparison is made to exams dated: 06/19/2023 mammogram, 04/03/2022 mammogram, and 03/28/2021 mammogram - [facility]. The left breast is heterogeneously dense, which may obscure small masses (category c / 51-75% glandular tissue). There are possible multiple round asymmetries in the left breast anterior depth central to the nipple seen on the craniocaudal view only. These are less prominent. No other significant masses or calcifications are seen in the breast. IMPRESSION: INCOMPLETE: NEEDS ADDITIONAL IMAGING EVALUATION The possible multiple round asymmetries in the left breast resemble fibroglandular tissue and are indeterminate. An ultrasound is recommended. Based on the Tyrer Cuzick model (a risk assessment model) the patient's lifetime risk is 5.4% and her 10 year risk is 0.0%. According to the ACR, ACS, and NCCN guidelines, an annual breast MRI exam along with mammogram is recommended if the patient's lifetime risk is 20% or greater. This exam was interpreted at Station ID: [id number]. NOTE: For mammograms, a report in lay terms will be sent to the patient. Approximately 15% of breast malignancies will not be visualized mammographically. In the management of a palpable breast mass, a negative mammogram must not discourage biopsy of a clinically suspicious lesion. Electronically Signed By: Rupesh nava/lenin:07/04/2023 13:34:16 ACR BI-RADS Category 0: Incomplete 3340F
== END ==
PROVIDERS: PCP Family Medicine; Referring Provider Family Medicine; Visit Provider Family Medicine
DX: R92.8 Other abnormal and inconclusive findings on diagnostic imaging of breast (principal); N64.89 Other specified disorders of breast
CPT/HCPCS: 76642; 77065; G0279

== ENCOUNTER → 2024-07-07 14:02 | Outpatient (CLI) | payer MEDICARE, OTHER, SELFPAY ==
[2022-06-07 15:10] VITALS: BMI 24.7
--- NOTE | 2024-07-07 14:03 | DI.MG.S_ITS ---
BILATERAL DIGITAL SCREENING MAMMOGRAM 3D/2D WITH CAD: 07/07/2024 CLINICAL: Routine screening. Family history of breast cancer. Comparison is made to exams dated: 06/19/2023 mammogram, 04/03/2022 mammogram, and 03/28/2021 mammogram - [facility]. The breasts are heterogeneously dense, which may obscure small masses (category c / 51-75% glandular tissue). Current study was also evaluated with a Computer Aided Detection (CAD) system. There are benign post operative findings in the left breast. No significant masses, calcifications, or other findings are seen in either breast. There has been no significant interval change. IMPRESSION: BENIGN There is no mammographic evidence of malignancy. A 1 year screening mammogram is recommended. Based on the Tyrer Cuzick model (a risk assessment model) the patient's lifetime risk is 4.8% and her 10 year risk is 0.0%. According to the ACR, ACS, and NCCN guidelines, an annual breast MRI exam along with mammogram is recommended if the patient's lifetime risk is 20% or greater. This exam was interpreted at Station ID: [id number]. NOTE: For mammograms, a report in lay terms will be sent to the patient. Approximately 15% of breast malignancies will not be visualized mammographically. In the management of a palpable breast mass, a negative mammogram must not discourage biopsy of a clinically suspicious lesion. Electronically Signed By: Ester Spear M.D., Ph.D. paula/lenin:07/08/2024 00:40:57 letter sent: Normal Exam ACR BI-RADS Category 2: Benign
== END ==
PROVIDERS: PCP Family Medicine; Referring Provider Family Medicine; Visit Provider Family Medicine
DX: Z12.31 Encounter for screening mammogram for malignant neoplasm of breast (principal); Z80.3 Family history of malignant neoplasm of breast; R92.333 Mammographic heterogeneous density, bilateral breasts
CPT/HCPCS: 77063; 77067

== ENCOUNTER → 2024-09-22 15:49 | Outpatient (CLI) | payer MEDICARE, OTHER, SELFPAY ==
[2022-06-07 15:10] VITALS: BMI 24.7
--- NOTE | 2024-09-22 15:50 | DI.RAD.S_ITS ---
PROCEDURE: XR HIP W PEL IF DONE ELISA MIN 4V INDICATIONS: BI HIP PAIN TECHNIQUE: AP pelvis with bilateral hips, total three views. COMPARISON: None. FINDINGS: Bones: No fractures or dislocations. Pelvic ring appears intact. No suspicious bony lesions. Moderate bilateral femoral acetabular joint osteoarthritis. Soft tissues: The visualized bowel gas pattern is normal. No suspicious soft tissue calcifications. IMPRESSION: Moderate bilateral hip osteoarthritis. Dictated by: Ritchie Spann M.D. on 09/23/2024 at 16:29 Approved by: Ritchie Spann M.D. on 09/23/2024 at 16:30
== END ==
PROVIDERS: PCP Family Medicine; Referring Provider Family Medicine; Visit Provider Family Medicine
DX: M16.0 Bilateral primary osteoarthritis of hip (principal); M25.551 Pain in right hip; M25.552 Pain in left hip
CPT/HCPCS: 73522

== ENCOUNTER 2024-10-25 22:35 | Emergency (ER) | payer MEDICARE, OTHER, SELFPAY ==
[2022-06-07 15:10] VITALS: BMI 24.7
[2024-10-25 22:42] VITALS: PULSE 101; O2SAT 100
[2024-10-25 22:44] VITALS: BP 186/107; PULSE 100; RESP 18; TEMP 36.7; O2SAT 100; BMI 24.7
--- NOTE | 2024-10-25 22:49 | EKG_ITS ---
[address] [address] Test Date: 2024-10-25 Pat Name: Sarah Hermosillo Department: [facility] Room: Gender: Female Global Risk Management Director: NIDA ROQUE : 1945 Requested By: Order Number: [id number] Reading MD: Baljinder Herrera MD Measurements Intervals [place] Rate: 100 P: 59 DE: 152 QRS: 51 QRSD: 66 T: 64 QT: 322 QTc: 415 Interpretive Statements Normal sinus rhythm Possible Left atrial enlargement Anteroseptal infarct , age undetermined Electronically Signed On 10-27-2024 13:38:32 PST by Baljinder Herrera MD
--- NOTE | 2024-10-25 22:50 | ED.DIZZY ---
HPI - Dizziness General Chief Complaint: Dizziness Stated Complaint: ringing in ears, dizziness,nausea, sweaty Time Seen by Provider: 10/25/24 22:38 Source: patient and family Mode of arrival: Wheelchair History of Present Illness HPI Narrative: 78-year-old female with history of hypertension presents by private vehicle from home for intense ear ringing and dizziness that she describes as the room spinning. Patient states that she was resting at home in her usual state of health when all of a sudden a loud ringing began in her left ear and the room began to spin. She felt very nauseous and she laid her head down on the counter. She feels less dizzy now, but still has an abnormal ringing sensation in her ear. Patient states that for the last month she was felt generally weaker than usual with balance issues. She now walks using walking sticks. She was seen her primary care doctor for this complaint without formal diagnosis. She says that she had blood work performed that was reportedly normal. She denies numbness, focal weakness, speech difficulties, or other complaints at this time. Related Data Home Medications Medication Instructions Recorded Confirmed lisinopril 10 mg tablet 10 mg PO BEDTIME ##0 04/22/12 06/07/22 loratadine 10 mg tablet (Claritin) 10 mg PO BEDTIME ##0 04/22/12 06/07/22 Previous Rx's Medication Instructions Recorded acetaminophen 325 mg tablet 650 mg (2 x 325 mg) PO Q6HR #100 06/08/22 tabs aspirin 81 mg tablet,delayed 81 mg PO BID #84 tabs 06/08/22 release naproxen sodium 220 mg capsule 220 mg PO BID #100 caps 06/08/22 (Aleve) oxycodone 5 mg tablet 5 mg PO Q4H PRN Pain, Moderate 06/08/22 (4-6) #40 tabs Allergies Allergy/AdvReac Type Severity Reaction Status Date / Time No Known Drug Allergies Allergy Verified 06/07/22 11:08 Patient History Medical History (Updated 10/26/24 @ 00:05 by Yamini Atkins MD) Sinus drainage Easy bruisability BCC (basal cell carcinoma) History of Mohs micrographic surgery for skin cancer DVT (deep venous thrombosis) (03/2021) Diverticulitis Diverticulosis HLD (hyperlipidemia) HTN (hypertension) Raynaud's syndrome Anesthesia complication Surgical History (Updated 05/31/22 @ 10:15 by Jennifer Vega RN) Hx of removal of cyst Hx of colonoscopy Hx of tonsillectomy Hx of hernia repair Social History household members: spouse Smoking Status: Never smoker alcohol intake: current Smoking Status: Never smoker alcohol intake frequency: holidays/special occasions only Exam Initial Vital Signs Initial Vital Signs: Vital Signs Pulse Rate 101 H 10/25/24 22:42 Pulse Oximetry 100 10/25/24 22:42 Oxygen Delivery Method Room Air 10/25/24 22:42 Const: Awake, alert, no acute distress, nontoxic appearing HEENT: TM normal bilaterally, PERRL, EOMI Cardiac: regular rate, regular rhythm RESP: unlabored, clear bilaterally, no wheezing Skin: Warm, Dry, intact, no rashes Neuro: AO x3, CN II-XII grossly intact, moves all extremities, no ataxia Course Orders Ordered: ED Orders 10/25/24 22:40 EKG-12 Lead Stat 10/25/24 22:46 CBC Auto Diff [Complete Blood Count AUTO DIFF] Stat CMP [Comprehensive Metabolic Panel] Stat MAG [Magnesium] Stat PT [Prothrombin Time INR] Stat 10/25/24 22:49 CT angio head and neck Stat CT head/brain wo con Stat Vital Signs Vital signs: Vital Signs - 8 hr 10/25/24 22:42 10/25/24 22:44 10/25/24 23:08 Temperature 98.1 F Pulse Rate 101 H 100 H 107 H Respiratory Rate 18 Blood Pressure 186/107 H Pulse Oximetry 100 100 99 Oxygen Delivery Method Room Air Room Air Room Air 10/25/24 23:09 10/25/24 23:09 10/25/24 23:30 Temperature Pulse Rate 104 H Respiratory Rate 23 Blood Pressure 155/78 H 130/63 Pulse Oximetry 98 Oxygen Delivery Method 10/25/24 23:30 10/26/24 00:03 10/26/24 00:03 Temperature Pulse Rate 99 H 96 H Respiratory Rate 23 Blood Pressure 173/87 H Pulse Oximetry 99 98 Oxygen Delivery Method 10/26/24 00:04 10/26/24 00:04 10/26/24 00:12 Temperature Pulse Rate 96 H 97 H Respiratory Rate 18 Blood Pressure 158/83 H 153/86 H Pulse Oximetry 98 99 Oxygen Delivery Method Room Air MDM - Dizziness Lab Data 10/25/24 22:46 10/25/24 22:46 Labs: Lab Results 10/25/24 Range/Units 22:46 WBC 8.2 (4.5-11.0) X10^3/uL RBC 4.89 (4.0-5.2) X10^6/uL Hgb 14.4 (12.0-16.0) g/dL Hct 42.8 (36-46) % MCV 87.6 (80-100) fL MCH 29.5 (26-34) PG MCHC 33.7 (30-36) % RDW 13.8 (11.6-14.8) % Plt Count 334 (150-400) X10^3/uL Neut % (Auto) 70.0 (50-75) % Lymph % (Auto) 18.8 L (25-40) % [place] % (Auto) 8.0 (3-14) % Eos % (Auto) 2.7 (2-4) % Baso % (Auto) 0.5 (0-2) % Neut # (Auto) 5700 (7564-2571) /uL Lymph # (Auto) 1500 (4755-1663) /uL [place] # (Auto) 700 (0-900) /uL Eos # (Auto) 200 (0-450) /uL Baso # (Auto) 0 (0-100) /uL PT 11.9 (9.4-12.5) SECONDS INR 1.1 (0.9-1.3) Sodium 136 L (137-145) mmol/L Potassium 3.6 (3.4-5.1) mmol/L Chloride 100 (98-107) mmol/L Carbon Dioxide 31 (22-32) mmol/L BUN 23 H (7-17) mg/dL Creatinine 0.91 (0.52-1.04) mg/dL Estimated GFR > 60 (>60) mL/min BUN/Creatinine Ratio 25.3 H (6-22) Glucose 145 H (80-110) mg/dL Calcium 9.5 (8.4-10.2) mg/dL Magnesium 2.1 (1.6-2.3) mg/dL Total Bilirubin 0.6 (0.2-1.3) mg/dL AST 25 (14-36) IU/L ALT 18 (<35) IU/L Alkaline Phosphatase 106 (38-126) U/L Total Protein 7.7 (6.3-8.2) g/dL Albumin 4.5 (3.5-5.0) g/dL Globulin 3.2 (1.7-4.1) g/dL Albumin/Globulin Ratio 1.4 (1.0-2.8) Imaging Data CT scan - head: Radiologist's Impression: PROCEDURE: CT HEAD/BRAIN WO CON INDICATIONS: vertigo x1 day, balance probs x 1mo TECHNIQUE: Noncontrast 4.5 mm thick angled axial sections acquired from the foramen magnum to the vertex, with coronal and sagittal reformats. For radiation dose reduction, the following was used: automated exposure control, adjustment of mA and/or kV according to patient size. COMPARISON: None. FINDINGS: Image quality: Diagnostic. CSF spaces: Basal cisterns are patent. No extra-axial fluid collections. The ventricles are symmetric in size and shape. Brain: No intracranial bleeds or masses. There is cerebral volume loss for age, with resultant ventricular and sulcal prominence. There are periventricular and deep white matter chronic small vessel ischemic changes. There is intracranial internal carotid artery atherosclerosis. Skull and face: Calvarium and visualized facial bones appear intact, without suspicious lesions. Sinuses: Visualized sinuses and mastoids are clear. IMPRESSION: No acute intracranial pathology. Dictated by: Az Romero M.D. on 10/25/2024 at 23:09 Approved by: Az Romero M.D. on 10/25/2024 at 23:10 CTA - brain/neck: Radiologist's Impression: PROCEDURE: CT ANGIO HEAD AND NECK INDICATIONS: vertigo x 1 day, balance probs x 1 mo TECHNIQUE: After the administration of intravenous contrast, 1 mm thick sections acquired from the aortic arch through the [place] of [place]. 3-dimensional nhjbalf-kmuonmcfs-bvtkpucpjn (MIP) and/or volume rendering reformats were acquired of the central intracranial vasculature and neck separately. For radiation dose reduction, the following was used: automated exposure control, adjustment of mA and/or kV according to patient size. COMPARISON: [facility], CT, CT HEAD/BRAIN WO CON, 10/25/2024, 22:56. FINDINGS: Image quality: Diagnostic. BRAIN: CSF spaces: Ventricles are normal in size and shape. Basal cisterns are patent. No extra-axial fluid collections. Brain: No significant abnormality of the brain can be seen. Skull and face: Calvarium and facial bones appear intact, without suspicious lesions. Orbits appear normal. Sinuses: Sinuses and mastoids are clear. HEAD CT ANGIOGRAPHY: Anterior circulation: Intracranial internal carotid arteries are normal in size and flow. The flow within the paired anterior cerebral arteries is normal and symmetric. The flow within the middle cerebral arteries is normal and symmetric. The anterior communicating artery is seen. No aneurysms are seen. Posterior circulation: Visualized portions of the vertebral arteries demonstrate normal caliber, and join to form a normal appearing basilar artery. Flow within the posterior cerebral arteries is normal and symmetric. No aneurysms are seen. NECK CT ANGIOGRAPHY: Carotid system: The great vessels demonstrate a conventional anatomy as they arise from the aortic arch. The origins of the common carotid arteries appear patent. The common carotid arteries demonstrate normal caliber and courses. The bifurcation regions are both widely patent. The internal carotid arteries demonstrate normal calibers and courses. Posterior circulation: The origins of the vertebral arteries both appear widely patent. The more superior extracranial portions of both vertebral arteries also demonstrate normal courses and calibers. They join to form a normal appearing basilar artery. Soft tissues: Visualized neck soft tissues demonstrate no suspicious abnormalities. Bones: No suspicious bony lesions. Visualized cervical spine appears normally aligned. IMPRESSION: No significant intracranial arterial abnormality is seen. No significant abnormality is seen within the arteries of the neck. Any quantitative measurements of stenosis were performed using NASCET criteria. Dictated by: Az Romero M.D. on 10/25/2024 at 23:25 Approved by: Az Romero M.D. on 10/25/2024 at 23:28 ECG Data Interpretation: Normal sinus rhythm at 100 beats per minute. Normal NH. No ST T wave changes MDM Narrative Medical decision making narrative: Sudden onset hearing issues, tinnitus, and vertigo. Already feeling improved on arrival. The sudden onset of symptoms as well as the ear sx suggests Meniere's disease or other peripheral process. Patient reports another incident with ringing and vertigo earlier in the day while shopping at [employer] with her , however it wasn't as severe as this evening. On exam current NIH 0, there is no ataxia witness, speech is fluent, there is no numbness, and she has 5/5 strength in upper and lower extremities. Labs, imaging reviewed. CT brain, CTA negative for acute findings. Labs without significant abnormalities. Patient continues to report feeling improved since her arrival. Gait without ataxia, at baseline per spouse at bedside. Patient and informed of all lab and imaging findings at bedside. Possible etiology of Menieres discussed, however this would need to be further pursued before this could be considered an official diagnosis. Patient states that she was previously given meclizine for dizziness by PCP in the past. She was advised that she could attempt to try meclizine if vertigo reoccurs. Close PCP follow up advised. ED return precautions discussed. Discharge Plan Departure Patient Disposition: Home Clinical Impression: Vertigo Instructions: DI for Meniere Disease Activity Restrictions/Additional Instructions: Your laboratory work today showed normal range sodium and normal electrolytes. The CT scan of your head as well as of the blood vessels in your head and neck showed no abnormal findings. There was no evidence of a stroke. Sometimes decrease in salt intake can help symptoms. With your previous low salt levels this may be a problem, and it can be difficult to strike a balance in too much or too little salt. Talk to your primary doctor if you continue to experience symptoms. They may decide that you need further testing or referral to a specialist for this problem. If you have any new or worsening concerns please come back to the ER for repeat evaluation. Prescriptions: No Action lisinopril 10 MG tablet 10 mg PO BEDTIME Qty: 0 loratadine [Claritin] 10 MG tablet 10 mg PO BEDTIME Qty: 0 acetaminophen 325 mg Tablet 650 mg PO Q6HR Qty: 100 0RF aspirin 81 mg Tablet,Delayed Release (Dr/Ec) 81 mg PO BID Qty: 84 0RF oxycodone 5 mg Tablet 5 mg PO Q4H PRN (Reason: Pain, Moderate (4-6)) Qty: 40 0RF naproxen sodium [Aleve] 220 mg Capsule 220 mg PO BID Qty: 100 0RF Referrals: Alexys Norwood MD [Primary Care Provider] - Stand Alone Forms: Patient Portal/API/Survey
--- NOTE | 2024-10-25 22:55 | PC.NURSE ---
Pt to imaging via ED stretcher with manager technical training
[2024-10-25 23:02] LABS: Add Manual Diff / Slide Review NO; Basophils Absolute Auto 0 /uL (0-100); Basophils Percent Auto 0.5 % (0-2); Eosinophils Absolute Auto 200 /uL (0-450); Eosinophils Percent Auto 2.7 % (2-4); Hematocrit 42.8 % (36-46); Hemoglobin 14.4 g/dL (12.0-16.0); Lymphocytes Absolute Auto 1500 /uL (1100-4500); Lymphocytes Percent Auto 18.8 % (25-40); Mean Corpuscular HGB Conc 33.7 % (30-36); Mean Corpuscular Hemoglobin 29.5 PG (26-34); Mean Corpuscular Volume 87.6 fL (80-100); Monocytes Absolute Auto 700 /uL (0-900); Neutrophils Absolute Auto 5700 /uL (1500-7000); Platelet Count 334 X10^3/uL (150-400); Red Blood Cell Count 4.89 X10^6/uL (4.0-5.2); Red Cell Distribution Width 13.8 % (11.6-14.8); White Blood Cell Count 8.2 X10^3/uL (4.5-11.0)
[2024-10-25 23:03] LABS: INR 1.1 (0.9-1.3); Prothrombin Time 11.9 SECONDS (9.4-12.5)
[2024-10-25 23:07] LABS: Alanine Aminotransferase 18 IU/L (<35); Albumin 4.5 g/dL (3.5-5.0); Albumin Globulin Ratio 1.4 (1.0-2.8); Alkaline Phosphatase 106 U/L (38-126); Aspartate Aminotransferase 25 IU/L (14-36); BUN Creatinine Ratio 25.3 (6-22); Bilirubin Total 0.6 mg/dL (0.2-1.3); Blood Urea Nitrogen 23 mg/dL (7-17); Calcium 9.5 mg/dL (8.4-10.2); Carbon Dioxide 31 mmol/L (22-32); Chloride 100 mmol/L (98-107); Estimated Glomerular Filt Rate > 60 mL/min (>60); Globulin 3.2 g/dL (1.7-4.1); Glucose 145 mg/dL (80-110); HEMOLYSIS < 15 (0-50); Magnesium 2.1 mg/dL (1.6-2.3); Potassium 3.6 mmol/L (3.4-5.1); Sodium 136 mmol/L (137-145); Total Protein 7.7 g/dL (6.3-8.2)
[2024-10-25 23:08] VITALS: PULSE 107; O2SAT 99
[2024-10-25 23:09] VITALS: BP 155/78; PULSE 104; RESP 23; O2SAT 98
[2024-10-25 23:30] VITALS: BP 130/63; PULSE 99; RESP 23; O2SAT 99
--- NOTE | 2024-10-25 23:56 | PC.NURSE ---
Dr. Atkins at bedside. Pt ambulatory around exam room without difficulty or assistance.
[2024-10-26 00:03] VITALS: BP 173/87; PULSE 96; O2SAT 98
[2024-10-26 00:04] VITALS: BP 158/83; PULSE 96; O2SAT 98
[2024-10-26 00:12] VITALS: BP 153/86; PULSE 97; RESP 18; O2SAT 99
== END 2024-10-26 00:12 | disposition home or self-care (01) ==
PROVIDERS: Emergency Provider Emergency Medicine; PCP Family Medicine
DX: R42 Dizziness and giddiness (principal); R11.0 Nausea
CPT/HCPCS: 36415; 70450; 70496; 70498; 80053; 83735; 85025; 85610; 93005; 93010; 99283; 99284; Q9967

== ENCOUNTER 2025-01-06 11:30 | Outpatient (RCR) | payer MEDICARE, OTHER, SELFPAY ==
[2022-06-07 15:10] VITALS: BMI 24.7
--- NOTE | 2024-11-17 11:17 | PT.OPPOC ---
Physical, Occupational & Speech Therapy At Current Diagnoses Dizziness and giddiness (11/19/24) Visit Care Team Role Provider Type Alexys Norwood MD Attending Provider Physician Family Provider Primary Care Provider Referring Provider Specialty: Family Practice Address: [address] [place], [address] Email: [email or web address] Plan Of Care PT-OP-B Current Condition Start: 11/16/24 08:07 Freq: Status: Active Protocol: Document 11/17/24 08:10 MB (Rec: 11/17/24 08:35 MB [id number]) Current Condition History of Current Condition Onset Date September 2024 Current Complaints Unsteadiness, occ vertigo History of Current Condition Pt reports that in September, she started getting right hip and leg pain and she saw her doctor and went to physical therapy. She was sick for a couple of days and then she started to feel dizzy all the time. 10/25/24, she thought she was having a stroke. She was sitting at the kitchen table and it felt that her left ear shut, she got spinning dizziness and she was nauseated. ED work-up revealed vertigo. She had been taking meclizine. Pt reports: left ear pressure when it starts, decreased stamina, left ear hearing loss and tinnitus, sinus/allergy issues and takes claritin, feeling of moisture and draining in left ear. Pt denies: numbness/tingling, vision changes, history of concussion (one fall on concrete as a kid), performance of sit-ups, anemia , trouble swallowing, overhead lifting, neck trouble, B12 deficiency, eye pressure changes, chiropractor treatment, jaw problems, headaches. Pt is not dizzy rolling over in the bed. She is having trouble sleeping d/t trouble with right hip and new right knee (two years ago). Pt would like to get back to the gym and walking. She is walking with walking sticks. Pt went of Lisinopril and went off in September. Prior Treatments and Tests ED work-up 11/04/24: Head CT and Head and Neck CTA: negative Treatment Goals Patient/Caregiver Goals To feel better and get back to where she was. PT-OP-T Assessment and Plan Start: 11/16/24 08:07 Freq: Status: Active Protocol: Document 11/19/24 07:31 MB (Rec: 11/19/24 07:38 MB [id number]) Physical Therapy Assessment Rehab Potential Rehabilitation Potential Good Evaluation Complexity Number of Personal Factors/Comorbidities 1-2 Number of Body Systems Impaired 1-2 Clinical Presentation at Evaluation Evolving Goals 3 Impairment Lack of HEP Retirement Goal (LTG) Pt will perform progressive HEP with I including VOR, postural, strength and balance exercises to improve VOR function, balance and posture. LTG Duration 8 weeks 2 Impairment Evidence of imbalance Post Acute Care Nurse Goal (LTG) Pt will perform WNLs on FGA to decrease fall risk. LTG Duration 8 weeks 1 Impairment Reports of unsteadiness and dizziness Post Acute Care Nurse Goal (LTG) Pt will present with a DHI score reflecting no more than 10% to improve quality of life and function. LTG Duration 8 weeks Physical Therapy Plan Frequency and Duration Frequency of Treatment 1-2x/wk Duration of treatment (weeks) 8 Plan of Care Start Date 11/17/24 Plan of Care End Date 01/15/25 Therapeutic Interventions Therapeutic Interventions Balance Training,Canalithic Repositioning,Coordination Training,Gait Training,Home Exercise Program,Manual Therapy,Neuromuscular Re- education,Patient/Caregiver Education,Self-Care/Home Management,Soft Tissue Mobilization,Taping, Therapeutic Activities, Therapeutic Exercises, Vestibular Rehabilitation Modalities Cold Pack/Ice Massage,Electric Stimulation,Hot Packs, Ultrasound Other Referrals/Consults Referrals/Consults Recommended Dr. Norwood for medication review, ENT consult for hearing testing, possible VNG Next Visit Focus/Plan Next Note Type Treatment Note Next Visit Plan Do DHI DVA and FGA testing In future, progress VOR, balance and cervical treatment and testing Plan of Care Dates Plan of Care Start Date 11/17/24 Plan of Care End Date 01/15/25 Electronically Signed by: Kelly Hull PT 11/19/24 0738 If you are in agreement with this Plan of Care, please return a signed and dated copy. I have reviewed this Plan of Care and certify that the skilled therapy services above are required to meet the patient?s needs. Physician Signature Date Printed Name and Credentials Clinical Instructor Signature Printed Name and Credentials
--- NOTE | 2024-11-17 11:17 | PT.OIE ---
Current Diagnoses Dizziness and giddiness (11/17/24) Past Medical History (Last Updated 05/31/22 @ 10:16 by Jennifer Vega, RN) Anesthesia complication BCC (basal cell carcinoma) Diverticulitis Diverticulosis DVT (deep venous thrombosis) (03/2021) Easy bruisability History of Mohs micrographic surgery for skin cancer HLD (hyperlipidemia) HTN (hypertension) Raynaud's syndrome Sinus drainage Past Surgical History (Last Updated 05/31/22 @ 10:15 by Jennifer Vega, RN) Hx of colonoscopy Hx of hernia repair Hx of removal of cyst Hx of tonsillectomy Visit Care Team Role Provider Type Alexys Norwood MD Attending Provider Physician Family Provider Primary Care Provider Referring Provider Specialty: [facility] Address: [facility] [place], [facility] Email: [email or web address] Physical Therapy Initial Evaluation PT-OP-A Visit Information Start: 11/16/24 08:07 Freq: Status: Active Protocol: Document 11/17/24 08:10 MB (Rec: 11/17/24 08:35 MB [id number]) Out-Patient Physical Therapy Visit Information Visit Information Visit Type Initial Evaluation Visit Note Medicare and for Life Visit Start Time 08:10 Visit Stop Time 08:50 Visit Number 1 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 She was sick for a couple of days and then she started to feel dizzy all the time. 10/25/24, she thought she was having a stroke. She was sitting at the kitchen table and it felt that her left ear shut, she got spinning dizziness and she was nauseated. ED work-up revealed vertigo. She had been taking meclizine. Pt reports: left ear pressure when it starts, decreased stamina, left ear hearing loss and tinnitus, sinus/allergy issues and takes claritin, feeling of moisture and draining in left ear. Pt denies: numbness/tingling, vision changes, history of concussion (one fall on concrete as a kid), performance of sit-ups, anemia , trouble swallowing, overhead lifting, neck trouble, B12 deficiency, eye pressure changes, chiropractor treatment, jaw problems, headaches. Pt is not dizzy rolling over in the bed. She is having trouble sleeping d/t trouble with right hip and new right knee (two years ago). Pt would like to get back to the gym and walking. She is walking with walking sticks. Pt went of Lisinopril and went off in September. Prior Treatments and Tests ED work-up 11/04/24: Head CT and Head and Neck CTA: negative Treatment Goals Patient/Caregiver Goals To feel better and get back to where she was. PT-OP-C Subjective Start: 11/16/24 08:07 Freq: Status: Active Protocol: Document 11/17/24 08:10 MB (Rec: 11/17/24 08:35 MB [id number]) OP-PT Subjective Patient Comments Patient Comments See history of current condition PT-OP-D Balance Start: 11/16/24 08:07 Freq: Status: Active Protocol: Document 11/17/24 08:10 MB (Rec: 11/17/24 11:16 MB [id number]) Balance Tests Other Other Balance Tests Performed Pt tends to reach arms for wall or out to side with postural testing d/t reports of feeling imbalanced PT-OP-H Neuro Start: 11/16/24 08:07 Freq: Status: Active Protocol: Document 11/17/24 08:10 MB (Rec: 11/17/24 08:35 MB [id number]) Coordination Evaluation Upper Extremity Tests Left Finger to Nose Test Minimal Impairment Right Finger to Nose Test Minimal Impairment Comments Coordination Comments Pt's B finger to nose is mildly slower and no particularly dysmetric Vital Signs Comments Vital Signs Comments See orthostatics in assessment section, positive today PT-OP-J Posture/Palpation/Skin Start: 11/16/24 08:07 Freq: Status: Active Protocol: Document 11/17/24 08:10 MB (Rec: 11/17/24 08:42 MB [id number]) Posture Evaluation Comments Posture Comments Pt standing in shoes: foward head, rounded shoulders, left more than the right, head rests in mild right rotation, changes in thoracic curvature and reduced kyphosis, pt reports history of scoliosis, left scapula mildly more elevated and protracted than the right, left iliac crest mildly higher then the right. PT-OP-K Range of Motion Start: 11/16/24 08:07 Freq: Status: Active Protocol: Document 11/17/24 08:10 MB (Rec: 11/17/24 11:16 MB [id number]) Cervical Spine Range of Motion Cervical Spine Active Testing Position Standing Flexion 50 Extension 40 Rotation Left 30 Rotation Right 45 PT-OP-M Strength Start: 11/16/24 08:07 Freq: Status: Active Protocol: Document 11/17/24 08:10 MB (Rec: 11/17/24 11:16 MB [id number]) Shoulder Strength Shoulder Manual Muscle Testing Bilateral Flexion 5 Normal Abduction (C5) 5 Normal Elbow/Forearm Strength Elbow and Forearm Manual Muscle Testing Bilateral Flexion (C6) 5 Normal Extension (C7) 5 Normal PT-OP-O Vestibular Start: 11/16/24 08:07 Freq: Status: Active Protocol: Document 11/17/24 08:10 MB (Rec: 11/17/24 11:16 MB [id number]) Vestibular Assessment Visual Testing Smooth Pursuits Horizontal Normal Smooth Pursuits Vertical Normal Saccades Horizontal Normal Saccades Vertical Normal Gaze Evoked Nystagmus With Fixation Negative Thrust Head Positive Bilateral Convergence Test WNL Spontaneous Nystagmus Negative Positional Testing Ronnie-Hallpike Negative Left,Negative Right Rolling Test Negative Left,Negative Right PT-OP-Q Treatments Start: 11/16/24 08:07 Freq: Status: Active Protocol: Document 11/17/24 08:10 MB (Rec: 11/17/24 11:16 MB [id number]) Self-Care/Home Management Treatment Education Patient Education Posture,Safety Other Education Ed pt in different types of dizziness and they can occure concurrently including VOR hypofunction and unstable vestibular lesion such as Menieres, BPPV, orthostatic hypotension and provided insight to plan and further education, provided handouts about orthostatic hypotension and things to do and not to do , ed pt on log rolling PT-OP-T Assessment and Plan Start: 11/16/24 08:07 Freq: Status: Active Protocol: Document 11/17/24 08:10 MB (Rec: 11/17/24 08:35 MB [id number]) Physical Therapy Assessment Rehab Potential Rehabilitation Potential Good Evaluation Complexity Number of Personal Factors/Comorbidities 1-2 Number of Body Systems Impaired 1-2 Clinical Presentation at Evaluation Evolving Goals 3 Impairment Lack of HEP Longterm Goal (LTG) Pt will perform progressive HEP with I including VOR, postural, strength and balance exercises to improve VOR function, balance and posture. LTG Duration 8 weeks 2 Impairment Evidence of imbalance Longterm Goal (LTG) Pt will perform WNLs on FGA to decrease fall risk. LTG Duration 8 weeks 1 Impairment Reports of unsteadiness and dizziness Rn Admissions Goal (LTG) Pt will present with a DHI score reflecting no more than 10% to improve quality of life and function. LTG Duration 8 weeks Assessment Summary Assessment Pt is a 79 y/o female presenting with over 2 month history of dizziness after a short cold/illness. Pt reports she has been taking meclizine since September. In October, she had worse acute dizziness and thought she might have had a stroke. ED work-up was negative. She con't with meclizine. She states that Dr. Norwood took her off her lisinopril in September as well . She was receiving OPPT for her right hip and knee over the past couple of months. Pt reports left ear hearing changes, tinnitus and fullness . B VOR head thrust is positive for corrective saccade this date. She presents with decreased cervical ROM with BPPV testing and ROM assessment today. BPPV testing is negative. Orthostatic assessment with BP and HR in LUE: supine 178/94, HR does not read; standing 137/85, 99; standing 1' 156/94 , 99. 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 PT will address posture, cervical spine, VOR hypofunction and imbalance. Recommend follow-up with Dr. Norwood for medication review and possible ENT consult for hearing test and possible VNG to r/o unstable vestibular lesion such as Meniere's and/or treatment for such. This patient is a great OPPT candidate. Thank you for this referral. Physical Therapy Plan Frequency and Duration Frequency of Treatment 1-2x/wk Duration of treatment (weeks) 8 Plan of Care Start Date 11/17/24 Plan of Care End Date 01/15/25 Other Referrals/Consults Referrals/Consults Recommended Dr. Norwood for medication review, ENT consult for hearing testing, possible VNG Next Visit Focus/Plan Next Note Type Treatment Note Next Visit Plan Do DHI DVA and FGA testing In future, progress VOR, balance and cervical treatment and testing
--- NOTE | 2024-11-19 08:15 | PT.OTN ---
Current Diagnoses Dizziness and giddiness (11/19/24) Physical Therapy Treatment Note PT-OP-A Visit Information Start: 11/16/24 08:07 Freq: Status: Active Protocol: Document 11/19/24 07:31 MB (Rec: 11/19/24 07:38 MB [id number]) Out-Patient Physical Therapy Visit Information Visit Information Visit Type Treatment Note Visit Note Medicare and [employer] Pt goes on vacation the end of the month and has cataract surgery next week. She will have another cataract surgery upon return from vacation and this will affect PT scheduling . 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 She was sick for a couple of days and then she started to feel dizzy all the time. 10/25/24, she thought she was having a stroke. She was sitting at the kitchen table and it felt that her left ear shut, she got spinning dizziness and she was nauseated. ED work-up revealed vertigo. She had been taking meclizine. Pt reports: left ear pressure when it starts, decreased stamina, left ear hearing loss and tinnitus, sinus/allergy issues and takes claritin, feeling of moisture and draining in left ear. Pt denies: numbness/tingling, vision changes, history of concussion (one fall on concrete as a kid), performance of sit-ups, anemia , trouble swallowing, overhead lifting, neck trouble, B12 deficiency, eye pressure changes, chiropractor treatment, jaw problems, headaches. Pt is not dizzy rolling over in the bed. She is having trouble sleeping d/t trouble with right hip and new right knee (two years ago). Pt would like to get back to the gym and walking. She is walking with walking sticks. Pt went of Lisinopril and went off in September. Prior Treatments and Tests ED work-up 11/04/24: Head CT and Head and Neck CTA: negative Treatment Goals Patient/Caregiver Goals To feel better and get back to where she was. PT-OP-C Subjective Start: 11/16/24 08:07 Freq: Status: Active Protocol: Document 11/19/24 07:31 MB (Rec: 11/19/24 07:38 MB [id number]) OP-PT Subjective Patient Comments Patient Comments Pt did not take her Meclizine before coming to PT this morning. She feels a little imbalanced occ, and like she needs to stop and hold on. Pt goes on vacation the end of the month and has cataract surgery next week. She will have another cataract surgery upon return from vacation and this will affect PT scheduling . PT-OP-D Balance Start: 11/16/24 08:07 Freq: Status: Active Protocol: Document 11/17/24 08:10 MB (Rec: 11/17/24 11:16 MB [id number]) Balance Tests Other Other Balance Tests Performed Pt tends to reach arms for wall or out to side with postural testing d/t reports of feeling imbalanced PT-OP-H Neuro Start: 11/16/24 08:07 Freq: Status: Active Protocol: Document 11/17/24 08:10 MB (Rec: 11/17/24 08:35 MB [id number]) Coordination Evaluation Upper Extremity Tests Left Finger to Nose Test Minimal Impairment Right Finger to Nose Test Minimal Impairment Comments Coordination Comments Pt's B finger to nose is mildly slower and no particularly dysmetric Vital Signs Comments Vital Signs Comments See orthostatics in assessment section, positive today PT-OP-J Posture/Palpation/Skin Start: 11/16/24 08:07 Freq: Status: Active Protocol: Document 11/17/24 08:10 MB (Rec: 11/17/24 08:42 MB [id number]) Posture Evaluation Comments Posture Comments Pt standing in shoes: foward head, rounded shoulders, left more than the right, head rests in mild right rotation, changes in thoracic curvature and reduced kyphosis, pt reports history of scoliosis, left scapula mildly more elevated and protracted than the right, left iliac crest mildly higher then the right. PT-OP-K Range of Motion Start: 11/16/24 08:07 Freq: Status: Active Protocol: Document 11/17/24 08:10 MB (Rec: 11/17/24 11:16 MB [id number]) Cervical Spine Range of Motion Cervical Spine Active Testing Position Standing Flexion 50 Extension 40 Rotation Left 30 Rotation Right 45 PT-OP-M Strength Start: 11/16/24 08:07 Freq: Status: Active Protocol: Document 11/17/24 08:10 MB (Rec: 11/17/24 11:16 MB [id number]) Shoulder Strength Shoulder Manual Muscle Testing Bilateral Flexion 5 Normal Abduction (C5) 5 Normal Elbow/Forearm Strength Elbow and Forearm Manual Muscle Testing Bilateral Flexion (C6) 5 Normal Extension (C7) 5 Normal PT-OP-O Vestibular Start: 11/16/24 08:07 Freq: Status: Active Protocol: Document 11/17/24 08:10 MB (Rec: 11/17/24 11:16 MB [id number]) Vestibular Assessment Visual Testing Smooth Pursuits Horizontal Normal Smooth Pursuits Vertical Normal Saccades Horizontal Normal Saccades Vertical Normal Gaze Evoked Nystagmus With Fixation Negative Thrust Head Positive Bilateral Convergence Test WNL Spontaneous Nystagmus Negative Positional Testing Jenners-Hallpike Negative Left,Negative Right Rolling Test Negative Left,Negative Right PT-OP-Q Treatments Start: 11/16/24 08:07 Freq: Status: Active Protocol: Document 11/19/24 07:31 MB (Rec: 11/19/24 07:43 MB [id number]) Neuro Re-Education Treatment Balance Activities FGA activities for HEP Comments FGA activities in the hallway, sliding the middle fingernail on the wall: Pt to perform 1 rep of each for a set, 4 sets a day: Forward walking, change speed Forward walking, up and down head turns Forward walking, side to side head turns Foward walking, eyes closed Backwards walking Forward walking, heel to toe Pt requires cues and SBA, she performs 1 set today FGA Comments FGA score is 10/30, indicative of high risk for falling Self-Care/Home Management Treatment Education Patient Education Fall Risk,Home Exercise Program,Safety Other Education Education and handouts today about vestibular testing, the balance system, PT and the VOR , why see a PT for dizziness. DHI questioning today reflects 54% impairment PT-OP-T Assessment and Plan Start: 11/16/24 08:07 Freq: Status: Active Protocol: Document 11/19/24 07:31 MB (Rec: 11/19/24 07:38 MB [id number]) Physical Therapy Assessment Rehab Potential Rehabilitation Potential Good Evaluation Complexity Number of Personal Factors/Comorbidities 1-2 Number of Body Systems Impaired 1-2 Clinical Presentation at Evaluation Evolving Goals 3 Impairment Lack of HEP Traffic Rate Analyst Goal (LTG) Pt will perform progressive HEP with I including VOR, postural, strength and balance exercises to improve VOR function, balance and posture. LTG Duration 8 weeks 2 Impairment Evidence of imbalance Residential Goal (LTG) Pt will perform WNLs on FGA to decrease fall risk. LTG Duration 8 weeks 1 Impairment Reports of unsteadiness and dizziness Traffic Rate Analyst Goal (LTG) Pt will present with a DHI score reflecting no more than 10% to improve quality of life and function. 11/19/24: DHI score reflects 54 % impairment LTG Duration 8 weeks Assessment Summary Assessment Education and handouts today about vestibular testing, the balance system, PT and the VOR , why see a PT for dizziness. Performed DHI and FGA today and initiated home program for balance exercises. Pt to have two cataract surgeries and vacation and plan may be affected, pt does not have another appointment until . She will check in with PT. Physical Therapy Plan Frequency and Duration Frequency of Treatment 1-2x/wk Duration of treatment (weeks) 8 Plan of Care Start Date 11/17/24 Plan of Care End Date 01/15/25 Therapeutic Interventions Therapeutic Interventions Balance Training,Canalithic Repositioning,Coordination Training,Gait Training,Home Exercise Program,Manual Therapy,Neuromuscular Re- education,Patient/Caregiver Education,Self-Care/Home Management,Soft Tissue Mobilization,Taping, Therapeutic Activities, Therapeutic Exercises, Vestibular Rehabilitation Modalities Cold Pack/Ice Massage,Electric Stimulation,Hot Packs, Ultrasound Other Referrals/Consults Referrals/Consults Recommended Dr. Norwood for medication review, ENT consult for hearing testing, possible VNG Next Visit Focus/Plan Next Note Type Treatment Note Next Visit Plan DVA In future, progress VOR, balance and cervical treatment and testing, consider [place] and postural exercises
--- NOTE | 2024-11-24 16:03 | PT-OP ANOTE ---
Pt emails PT and PT calls pt. Pt has first cataract surgery tomorrow 11/25/25 and then she goes on a short vacation. Second cataract surgery is 12/09/25. Pt to call in and cancel and add appointments as her vacation and surgical schedule allows. She is doing better with hydration and balance exercises and feels less dizzy.
--- NOTE | 2024-12-08 08:10 | PT.OTN ---
Current Diagnoses Dizziness and giddiness (12/08/24) Physical Therapy Treatment Note PT-OP-A Visit Information Start: 11/16/24 08:07 Freq: Status: Active Protocol: Document 12/08/24 07:32 MB (Rec: 12/08/24 08:10 MB [id number]) Out-Patient Physical Therapy Visit Information Visit Information Visit Type Progress Note Visit Note Medicare and for Life Second cataract surgery tomorrow Visit Start Time 07:32 Visit Stop Time 08:12 Visit Number 3 Number of ASSOCIATE SOFTWARE APPLICATION ENGINEER Visits 0 Evaluation Information Evaluation Date 11/17/24 PT-OP-B Current Condition Start: 11/16/24 08:07 Freq: Status: Active Protocol: Document 11/17/24 08:10 MB (Rec: 11/17/24 08:35 MB [id number]) Current Condition History of Current Condition Onset Date September 2024 Current Complaints Unsteadiness, occ vertigo History of Current Condition Pt reports that in September, she started getting right hip and leg pain and she saw her doctor and went to physical therapy. She was sick for a couple of days and then she started to feel dizzy all the time. 10/25/24, she thought she was having a stroke. She was sitting at the kitchen table and it felt that her left ear shut, she got spinning dizziness and she was nauseated. ED work-up revealed vertigo. She had been taking meclizine. Pt reports: left ear pressure when it starts, decreased stamina, left ear hearing loss and tinnitus, sinus/allergy issues and takes claritin, feeling of moisture and draining in left ear. Pt denies: numbness/tingling, vision changes, history of concussion (one fall on concrete as a kid), performance of sit-ups, anemia , trouble swallowing, overhead lifting, neck trouble, B12 deficiency, eye pressure changes, chiropractor treatment, jaw problems, headaches. Pt is not dizzy rolling over in the bed. She is having trouble sleeping d/t trouble with right hip and new right knee (two years ago). Pt would like to get back to the gym and walking. She is walking with walking sticks. Pt went of Lisinopril and went off in September. Prior Treatments and Tests ED work-up 11/04/24: Head CT and Head and Neck CTA: negative Treatment Goals Patient/Caregiver Goals To feel better and get back to where she was. PT-OP-C Subjective Start: 11/16/24 08:07 Freq: Status: Active Protocol: Document 12/08/24 07:32 MB (Rec: 12/08/24 08:10 MB [id number]) OP-PT Subjective Patient Comments Patient Comments Pt's right eye is doing better after surgery and she has left eye cataract surgery tomorrow. She is doing balance exercises. She is taking OTC Meclizine everyday because she thinks it prevents the vertigo. PT-OP-D Balance Start: 11/16/24 08:07 Freq: Status: Active Protocol: Document 11/17/24 08:10 MB (Rec: 11/17/24 11:16 MB [id number]) Balance Tests Other Other Balance Tests Performed Pt tends to reach arms for wall or out to side with postural testing d/t reports of feeling imbalanced PT-OP-H Neuro Start: 11/16/24 08:07 Freq: Status: Active Protocol: Document 11/17/24 08:10 MB (Rec: 11/17/24 08:35 MB [id number]) Coordination Evaluation Upper Extremity Tests Left Finger to Nose Test Minimal Impairment Right Finger to Nose Test Minimal Impairment Comments Coordination Comments Pt's B finger to nose is mildly slower and no particularly dysmetric Vital Signs Comments Vital Signs Comments See orthostatics in assessment section, positive today PT-OP-J Posture/Palpation/Skin Start: 11/16/24 08:07 Freq: Status: Active Protocol: Document 11/17/24 08:10 MB (Rec: 11/17/24 08:42 MB [id number]) Posture Evaluation Comments Posture Comments Pt standing in shoes: foward head, rounded shoulders, left more than the right, head rests in mild right rotation, changes in thoracic curvature and reduced kyphosis, pt reports history of scoliosis, left scapula mildly more elevated and protracted than the right, left iliac crest mildly higher then the right. PT-OP-K Range of Motion Start: 11/16/24 08:07 Freq: Status: Active Protocol: Document 11/17/24 08:10 MB (Rec: 11/17/24 11:16 MB [id number]) Cervical Spine Range of Motion Cervical Spine Active Testing Position Standing Flexion 50 Extension 40 Rotation Left 30 Rotation Right 45 PT-OP-M Strength Start: 11/16/24 08:07 Freq: Status: Active Protocol: Document 11/17/24 08:10 MB (Rec: 11/17/24 11:16 MB [id number]) Shoulder Strength Shoulder Manual Muscle Testing Bilateral Flexion 5 Normal Abduction (C5) 5 Normal Elbow/Forearm Strength Elbow and Forearm Manual Muscle Testing Bilateral Flexion (C6) 5 Normal Extension (C7) 5 Normal PT-OP-O Vestibular Start: 11/16/24 08:07 Freq: Status: Active Protocol: Document 11/17/24 08:10 MB (Rec: 11/17/24 11:16 MB [id number]) Vestibular Assessment Visual Testing Smooth Pursuits Horizontal Normal Smooth Pursuits Vertical Normal Saccades Horizontal Normal Saccades Vertical Normal Gaze Evoked Nystagmus With Fixation Negative Thrust Head Positive Bilateral Convergence Test WNL Spontaneous Nystagmus Negative Positional Testing [place]-Hallpike Negative Left,Negative Right Rolling Test Negative Left,Negative Right PT-OP-Q Treatments Start: 11/16/24 08:07 Freq: Status: Active Protocol: Document 12/08/24 07:32 MB (Rec: 12/08/24 08:10 MB [id number]) Neuro Re-Education Treatment Balance Activities FGA activities for HEP Details HEP review Comments FGA activities in the hallway, sliding the middle fingernail on the wall: Pt to perform 1 rep of each for a set, 4 sets a day: Forward walking, change speed Forward walking, up and down head turns Forward walking, side to side head turns Foward walking, eyes closed Backwards walking Forward walking, heel to toe Pt requires cues and SBA, she performs 1 set today FGA Comments FGA score is 15/30, 5 points higher after performing home program Self-Care/Home Management Treatment Education Patient Education Home Exercise Program Other Education Ed will defer VOR testing and exercises given between two eye procedures, con't balance HEP, benefits of increasing non-caffeinated fluid intake, briefly reviewed handouts from previous treatment session PT-OP-T Assessment and Plan Start: 11/16/24 08:07 Freq: Status: Active Protocol: Document 12/08/24 07:32 MB (Rec: 12/08/24 08:10 MB [id number]) Physical Therapy Assessment Rehab Potential Rehabilitation Potential Good Evaluation Complexity Number of Personal Factors/Comorbidities 1-2 Number of Body Systems Impaired 1-2 Clinical Presentation at Evaluation Evolving Impairments Impairments Activity Tolerance,Balance, Coordination,Functional Activities,Functional Mobility ,Gait,Posture,Transfers, Vestibular Goals 3 Impairment Lack of HEP Care Home Goal (LTG) Pt will perform progressive HEP with I including VOR, postural, strength and balance exercises to improve VOR function, balance and posture. 12/08/24: Pt is performing balance exercises LTG Duration 8 weeks 2 Impairment Evidence of imbalance Care Home Goal (LTG) Pt will perform WNLs on FGA to decrease fall risk. 12/08/24: FGA score is 15/30 and pt con't to have most trouble with gait with EC and tandem. Vision changes after one cataract surgery and awaiting another surgery tomorrow affect steadiness. LTG Duration 8 weeks 1 Impairment Reports of unsteadiness and dizziness Retail District Manager Goal (LTG) Pt will present with a DHI score reflecting no more than 10% to improve quality of life and function. 11/19/24: DHI score reflects 54 % impairment 12/08/24: DHI score reflects 38% , which is improvement LTG Duration 8 weeks Assessment Summary Assessment Pt has ongoing reports of vertigo and possible tinnitus if she doesn't take Meclizine and PT con't to recommend an ENT referral. Pt has second cataract surgery tomorrow and so did not test VOR or give VOR exercise today as her vision will be greatly changed after procedure tomorrow. Her next PT appointment is in over a week, and she may be ready then for a VOR exercise. Pt con't with balance challenges and will con't to work on FGA exercises at home to improve her balance. Her DHI score is improved. Con't to progress per plan. Physical Therapy Plan Frequency and Duration Frequency of Treatment 1-2x/wk Duration of treatment (weeks) 8 Plan of Care Start Date 11/17/24 Plan of Care End Date 01/15/25 Therapeutic Interventions Therapeutic Interventions Balance Training,Canalithic Repositioning,Coordination Training,Gait Training,Home Exercise Program,Manual Therapy,Neuromuscular Re- education,Patient/Caregiver Education,Self-Care/Home Management,Soft Tissue Mobilization,Taping, Therapeutic Activities, Therapeutic Exercises, Vestibular Rehabilitation Modalities Cold Pack/Ice Massage,Electric Stimulation,Hot Packs, Ultrasound Other Referrals/Consults Referrals/Consults Recommended Dr. Norwood for medication review, ENT consult for hearing testing, possible VNG Next Visit Focus/Plan Next Note Type Treatment Note Next Visit Plan DVA In future, progress VOR, balance and cervical treatment and testing, consider [place] and postural exercises
--- NOTE | 2024-12-17 14:30 | PT.OTN ---
Current Diagnoses Dizziness and giddiness (12/17/24) Physical Therapy Treatment Note PT-OP-A Visit Information Start: 11/16/24 08:07 Freq: Status: Active Protocol: Document 12/17/24 13:49 MB (Rec: 12/17/24 14:30 MB [id number]) Out-Patient Physical Therapy Visit Information Visit Information Visit Type Treatment Note Visit Note Medicare and for Life Next progress note by 01/08/25 Visit Start Time 13:49 Visit Stop Time 14:29 Visit Number 4 Number of DATA SERVICES DEVELOPER Visits 0 Evaluation Information Evaluation Date 11/17/24 PT-OP-B Current Condition Start: 11/16/24 08:07 Freq: Status: Active Protocol: Document 11/17/24 08:10 MB (Rec: 11/17/24 08:35 MB [id number]) Current Condition History of Current Condition Onset Date September 2024 Current Complaints Unsteadiness, occ vertigo History of Current Condition Pt reports that in September, she started getting right hip and leg pain and she saw her doctor and went to physical therapy. She was sick for a couple of days and then she started to feel dizzy all the time. 10/25/24, she thought she was having a stroke. She was sitting at the kitchen table and it felt that her left ear shut, she got spinning dizziness and she was nauseated. ED work-up revealed vertigo. She had been taking meclizine. Pt reports: left ear pressure when it starts, decreased stamina, left ear hearing loss and tinnitus, sinus/allergy issues and takes claritin, feeling of moisture and draining in left ear. Pt denies: numbness/tingling, vision changes, history of concussion (one fall on concrete as a kid), performance of sit-ups, anemia , trouble swallowing, overhead lifting, neck trouble, B12 deficiency, eye pressure changes, chiropractor treatment, jaw problems, headaches. Pt is not dizzy rolling over in the bed. She is having trouble sleeping d/t trouble with right hip and new right knee (two years ago). Pt would like to get back to the gym and walking. She is walking with walking sticks. Pt went of Lisinopril and went off in September. Prior Treatments and Tests ED work-up 11/04/24: Head CT and Head and Neck CTA: negative Treatment Goals Patient/Caregiver Goals To feel better and get back to where she was. PT-OP-C Subjective Start: 11/16/24 08:07 Freq: Status: Active Protocol: Document 12/17/24 13:49 MB (Rec: 12/17/24 14:30 MB [id number]) OP-PT Subjective Patient Comments Patient Comments Pt states that vision is so much better after both cataract removals. She has a little fuzziness on the left side of her left eye. PT-OP-D Balance Start: 11/16/24 08:07 Freq: Status: Active Protocol: Document 11/17/24 08:10 MB (Rec: 11/17/24 11:16 MB [id number]) Balance Tests Other Other Balance Tests Performed Pt tends to reach arms for wall or out to side with postural testing d/t reports of feeling imbalanced PT-OP-H Neuro Start: 11/16/24 08:07 Freq: Status: Active Protocol: Document 11/17/24 08:10 MB (Rec: 11/17/24 08:35 MB [id number]) Coordination Evaluation Upper Extremity Tests Left Finger to Nose Test Minimal Impairment Right Finger to Nose Test Minimal Impairment Comments Coordination Comments Pt's B finger to nose is mildly slower and no particularly dysmetric Vital Signs Comments Vital Signs Comments See orthostatics in assessment section, positive today PT-OP-J Posture/Palpation/Skin Start: 11/16/24 08:07 Freq: Status: Active Protocol: Document 11/17/24 08:10 MB (Rec: 11/17/24 08:42 MB [id number]) Posture Evaluation Comments Posture Comments Pt standing in shoes: foward head, rounded shoulders, left more than the right, head rests in mild right rotation, changes in thoracic curvature and reduced kyphosis, pt reports history of scoliosis, left scapula mildly more elevated and protracted than the right, left iliac crest mildly higher then the right. PT-OP-K Range of Motion Start: 11/16/24 08:07 Freq: Status: Active Protocol: Document 11/17/24 08:10 MB (Rec: 11/17/24 11:16 MB [id number]) Cervical Spine Range of Motion Cervical Spine Active Testing Position Standing Flexion 50 Extension 40 Rotation Left 30 Rotation Right 45 PT-OP-M Strength Start: 11/16/24 08:07 Freq: Status: Active Protocol: Document 11/17/24 08:10 MB (Rec: 11/17/24 11:16 MB [id number]) Shoulder Strength Shoulder Manual Muscle Testing Bilateral Flexion 5 Normal Abduction (C5) 5 Normal Elbow/Forearm Strength Elbow and Forearm Manual Muscle Testing Bilateral Flexion (C6) 5 Normal Extension (C7) 5 Normal PT-OP-O Vestibular Start: 11/16/24 08:07 Freq: Status: Active Protocol: Document 11/17/24 08:10 MB (Rec: 11/17/24 11:16 MB [id number]) Vestibular Assessment Visual Testing Smooth Pursuits Horizontal Normal Smooth Pursuits Vertical Normal Saccades Horizontal Normal Saccades Vertical Normal Gaze Evoked Nystagmus With Fixation Negative Thrust Head Positive Bilateral Convergence Test WNL Spontaneous Nystagmus Negative Positional Testing [place]-Hallpike Negative Left,Negative Right Rolling Test Negative Left,Negative Right PT-OP-Q Treatments Start: 11/16/24 08:07 Freq: Status: Active Protocol: Document 12/17/24 13:49 MB (Rec: 12/17/24 14:30 MB [id number]) Manual Therapy Treatment Consent Patient gave verbal consent for manual Yes treatment Other Other Manual Treatments Pt supine with head and legs supported: grade II-III cervical PA mobs, B first ribs grade II mobs, STM B SCM, cervical paraspinals, upper traps and pects. Increased stiffness in neck Neuro Re-Education Treatment Vestibular Rehabilitation DVA exercise for VOR Comments Standing about 10' from eye chart, cues for small right and left head turns, keep letter E second line from bottom clear, next up and down . Pt has trouble coordination cervical movements. Pt performs 30 sec. Next, performed vertical head turns and pt moves slowly, put metronome at 120 BPM to see if pt can perform but she is unable to reach this speed currently. At home, pt to stand 8 feet away and practice 1 rep up and down and 1 rep right and left for up to 120 sec DVA testing Comments Reads eye chart to line 8 and then she has a hard time tolerating PT turning head side to side and up and down and she resists the most with up and down PT-OP-T Assessment and Plan Start: 11/16/24 08:07 Freq: Status: Active Protocol: Document 12/17/24 13:49 MB (Rec: 12/17/24 14:30 MB [id number]) Physical Therapy Assessment Rehab Potential Rehabilitation Potential Good Evaluation Complexity Number of Personal Factors/Comorbidities 1-2 Number of Body Systems Impaired 1-2 Clinical Presentation at Evaluation Evolving Impairments Impairments Activity Tolerance,Balance, Coordination,Functional Activities,Functional Mobility ,Gait,Posture,Transfers, Vestibular Goals 3 Impairment Lack of HEP Long-Term Goal (LTG) Pt will perform progressive HEP with I including VOR, postural, strength and balance exercises to improve VOR function, balance and posture. 12/08/24: Pt is performing balance exercises LTG Duration 8 weeks 2 Impairment Evidence of imbalance Feeder Associate Goal (LTG) Pt will perform WNLs on FGA to decrease fall risk. 12/08/24: FGA score is 15/30 and pt con't to have most trouble with gait with EC and tandem. Vision changes after one cataract surgery and awaiting another surgery tomorrow affect steadiness. LTG Duration 8 weeks 1 Impairment Reports of unsteadiness and dizziness Feeder Associate Goal (LTG) Pt will present with a DHI score reflecting no more than 10% to improve quality of life and function. 11/19/24: DHI score reflects 54 % impairment 12/08/24: DHI score reflects 38% , which is improvement LTG Duration 8 weeks Assessment Summary Assessment Initiated VOR testing and exercises for HEP today. Also initiated manual work for neck today. Physical Therapy Plan Frequency and Duration Frequency of Treatment 1-2x/wk Duration of treatment (weeks) 8 Plan of Care Start Date 11/17/24 Plan of Care End Date 01/15/25 Therapeutic Interventions Therapeutic Interventions Balance Training,Canalithic Repositioning,Coordination Training,Gait Training,Home Exercise Program,Manual Therapy,Neuromuscular Re- education,Patient/Caregiver Education,Self-Care/Home Management,Soft Tissue Mobilization,Taping, Therapeutic Activities, Therapeutic Exercises, Vestibular Rehabilitation Modalities Cold Pack/Ice Massage,Electric Stimulation,Hot Packs, Ultrasound Other Referrals/Consults Referrals/Consults Recommended Dr. Norwood for medication review, ENT consult for hearing testing, possible VNG Next Visit Focus/Plan Next Note Type Treatment Note Next Visit Plan Review DVA exericse as needed In future, progress VOR, balance and cervical treatment and testing, consider [place] and postural exercises Check orthostatics again as needed
--- NOTE | 2024-12-23 07:16 | PT-OP ANOTE ---
Pt sends email to PT stating that she had a response in her left eye after starting vestibular exercises last treatment date. This eye is almost two weeks post-op cataract removal. PT calls pt and tells her to stop VOR exercises and anything that bothers her eyes. PT leaves pt a choice that she can con't with PT to work on balance or she can stop PT at this time. Will currently stop all VOR exercises/eye exercises and exercises that bother her eye at this time. Asked pt to call back to let clinic know what is her choice.
--- NOTE | 2024-12-23 07:21 | PT-OP ANOTE ---
Left pt a second message recommending she follow-up with her eye doctor about her symptoms and that PT will also defer PT at this time if determined by her eye doctor.
--- NOTE | 2024-12-24 14:22 | PT.OTN ---
Current Diagnoses Dizziness and giddiness (12/24/24) Physical Therapy Treatment Note PT-OP-A Visit Information Start: 11/16/24 08:07 Freq: Status: Active Protocol: Document 12/24/24 13:42 MB (Rec: 12/24/24 14:20 MB [id number]) Out-Patient Physical Therapy Visit Information Visit Information Visit Type Treatment Note Visit Note Medicare and for Life Next progress note by 01/08/25 Visit Start Time 13:42 Visit Stop Time 14:22 Visit Number 5 Number of [employer] Visits 0 Evaluation Information Evaluation Date 11/17/24 PT-OP-B Current Condition Start: 11/16/24 08:07 Freq: Status: Active Protocol: Document 11/17/24 08:10 MB (Rec: 11/17/24 08:35 MB [id number]) Current Condition History of Current Condition Onset Date September 2024 Current Complaints Unsteadiness, occ vertigo History of Current Condition Pt reports that in September, she started getting right hip and leg pain and she saw her doctor and went to physical therapy. She was sick for a couple of days and then she started to feel dizzy all the time. 10/25/24, she thought she was having a stroke. She was sitting at the kitchen table and it felt that her left ear shut, she got spinning dizziness and she was nauseated. ED work-up revealed vertigo. She had been taking meclizine. Pt reports: left ear pressure when it starts, decreased stamina, left ear hearing loss and tinnitus, sinus/allergy issues and takes claritin, feeling of moisture and draining in left ear. Pt denies: numbness/tingling, vision changes, history of concussion (one fall on concrete as a kid), performance of sit-ups, anemia , trouble swallowing, overhead lifting, neck trouble, B12 deficiency, eye pressure changes, chiropractor treatment, jaw problems, headaches. Pt is not dizzy rolling over in the bed. She is having trouble sleeping d/t trouble with right hip and new right knee (two years ago). Pt would like to get back to the gym and walking. She is walking with walking sticks. Pt went of Lisinopril and went off in September. Prior Treatments and Tests ED work-up 11/04/24: Head CT and Head and Neck CTA: negative Treatment Goals Patient/Caregiver Goals To feel better and get back to where she was. PT-OP-C Subjective Start: 11/16/24 08:07 Freq: Status: Active Protocol: Document 12/24/24 13:42 MB (Rec: 12/24/24 14:20 MB [id number]) OP-PT Subjective Patient Comments Patient Comments Pt spoke to eye doctor who cleared continuing with vestibular exercises. She would also like to continue. Cataract surgery was two weeks ago. PT-OP-D Balance Start: 11/16/24 08:07 Freq: Status: Active Protocol: Document 11/17/24 08:10 MB (Rec: 11/17/24 11:16 MB [id number]) Balance Tests Other Other Balance Tests Performed Pt tends to reach arms for wall or out to side with postural testing d/t reports of feeling imbalanced PT-OP-H Neuro Start: 11/16/24 08:07 Freq: Status: Active Protocol: Document 11/17/24 08:10 MB (Rec: 11/17/24 08:35 MB [id number]) Coordination Evaluation Upper Extremity Tests Left Finger to Nose Test Minimal Impairment Right Finger to Nose Test Minimal Impairment Comments Coordination Comments Pt's B finger to nose is mildly slower and no particularly dysmetric Vital Signs Comments Vital Signs Comments See orthostatics in assessment section, positive today PT-OP-J Posture/Palpation/Skin Start: 11/16/24 08:07 Freq: Status: Active Protocol: Document 11/17/24 08:10 MB (Rec: 11/17/24 08:42 MB [id number]) Posture Evaluation Comments Posture Comments Pt standing in shoes: foward head, rounded shoulders, left more than the right, head rests in mild right rotation, changes in thoracic curvature and reduced kyphosis, pt reports history of scoliosis, left scapula mildly more elevated and protracted than the right, left iliac crest mildly higher then the right. PT-OP-K Range of Motion Start: 11/16/24 08:07 Freq: Status: Active Protocol: Document 11/17/24 08:10 MB (Rec: 11/17/24 11:16 MB [id number]) Cervical Spine Range of Motion Cervical Spine Active Testing Position Standing Flexion 50 Extension 40 Rotation Left 30 Rotation Right 45 PT-OP-M Strength Start: 11/16/24 08:07 Freq: Status: Active Protocol: Document 11/17/24 08:10 MB (Rec: 11/17/24 11:16 MB [id number]) Shoulder Strength Shoulder Manual Muscle Testing Bilateral Flexion 5 Normal Abduction (C5) 5 Normal Elbow/Forearm Strength Elbow and Forearm Manual Muscle Testing Bilateral Flexion (C6) 5 Normal Extension (C7) 5 Normal PT-OP-O Vestibular Start: 11/16/24 08:07 Freq: Status: Active Protocol: Document 11/17/24 08:10 MB (Rec: 11/17/24 11:16 MB [id number]) Vestibular Assessment Visual Testing Smooth Pursuits Horizontal Normal Smooth Pursuits Vertical Normal Saccades Horizontal Normal Saccades Vertical Normal Gaze Evoked Nystagmus With Fixation Negative Thrust Head Positive Bilateral Convergence Test WNL Spontaneous Nystagmus Negative Positional Testing [place]-Hallpike Negative Left,Negative Right Rolling Test Negative Left,Negative Right PT-OP-Q Treatments Start: 11/16/24 08:07 Freq: Status: Active Protocol: Document 12/24/24 13:42 MB (Rec: 12/24/24 14:20 MB [id number]) Manual Therapy Treatment Consent Patient gave verbal consent for manual Yes treatment Other Other Manual Treatments Pt supine with head and legs supported: cervical PA mobs grade I, ribs positional release, STM B SCM and upper traps, first rib mobs Neuro Re-Education Treatment Vestibular Rehabilitation VOR exercises with letter a Details HEP and provided handout today Comments Pt sitting and holding a: letter still head turns up and down up to 126 BPM, head still and then move letter right and left and up and down , opp head and letter, covergence Self-Care/Home Management Treatment Education Other Education Discussed benefits of ENT referral for testing hearing and common vestibular testing PT-OP-T Assessment and Plan Start: 11/16/24 08:07 Freq: Status: Active Protocol: Document 12/24/24 13:42 MB (Rec: 12/24/24 14:20 MB [id number]) Physical Therapy Assessment Rehab Potential Rehabilitation Potential Good Evaluation Complexity Number of Personal Factors/Comorbidities 1-2 Number of Body Systems Impaired 1-2 Clinical Presentation at Evaluation Evolving Impairments Impairments Activity Tolerance,Balance, Coordination,Functional Activities,Functional Mobility ,Gait,Posture,Transfers, Vestibular Goals 3 Impairment Lack of HEP Intermediate Goal (LTG) Pt will perform progressive HEP with I including VOR, postural, strength and balance exercises to improve VOR function, balance and posture. 12/08/24: Pt is performing balance exercises LTG Duration 8 weeks 2 Impairment Evidence of imbalance Intermediate Goal (LTG) Pt will perform WNLs on FGA to decrease fall risk. 12/08/24: FGA score is 15/30 and pt con't to have most trouble with gait with EC and tandem. Vision changes after one cataract surgery and awaiting another surgery tomorrow affect steadiness. 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 11/19/24: DHI score reflects 54 % impairment 12/08/24: DHI score reflects 38% , which is improvement LTG Duration 8 weeks Assessment Summary Assessment Pt con't to take Meclinizine and when she forgot to take it twice, she is more symptomatic. She con't to report ringing in the ears. Discussed again about referral to ENT and testing from ENT for hearing and VNG. Progressed VOR exercises today . Physical Therapy Plan Frequency and Duration Frequency of Treatment 1-2x/wk Duration of treatment (weeks) 8 Plan of Care Start Date 11/17/24 Plan of Care End Date 01/15/25 Therapeutic Interventions Therapeutic Interventions Balance Training,Canalithic Repositioning,Coordination Training,Gait Training,Home Exercise Program,Manual Therapy,Neuromuscular Re- education,Patient/Caregiver Education,Self-Care/Home Management,Soft Tissue Mobilization,Taping, Therapeutic Activities, Therapeutic Exercises, Vestibular Rehabilitation Modalities Cold Pack/Ice Massage,Electric Stimulation,Hot Packs, Ultrasound Other Referrals/Consults Referrals/Consults Recommended Dr. Norwood for medication review, ENT consult for hearing testing, possible VNG Next Visit Focus/Plan Next Note Type Treatment Note Next Visit Plan Review exercises as needed, cervical assessment/manual work and postural exercises, Add saccade exercise [place] Check orthostatics again as needed
--- NOTE | 2024-12-31 14:27 | PT.OTN ---
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 She was sick for a couple of days and then she started to feel dizzy all the time. 10/25/24, she thought she was having a stroke. She was sitting at the kitchen table and it felt that her left ear shut, she got spinning dizziness and she was nauseated. ED work-up revealed vertigo. She had been taking meclizine. Pt reports: left ear pressure when it starts, decreased stamina, left ear hearing loss and tinnitus, sinus/allergy issues and takes claritin, feeling of moisture and draining in left ear. Pt denies: numbness/tingling, vision changes, history of concussion (one fall on concrete as a kid), performance of sit-ups, anemia , trouble swallowing, overhead lifting, neck trouble, B12 deficiency, eye pressure changes, chiropractor treatment, jaw problems, headaches. Pt is not dizzy rolling over in the bed. She is having trouble sleeping d/t trouble with right hip and new right knee (two years ago). Pt would like to get back to the gym and walking. She is walking with walking sticks. Pt went of Lisinopril and went off in September. Prior Treatments and Tests ED work-up 11/04/24: Head CT and Head and Neck CTA: negative Treatment Goals Patient/Caregiver Goals To feel better and get back to where she was. PT-OP-C Subjective Start: 11/16/24 08:07 Freq: Status: Active Protocol: Document 12/31/24 13:48 MB (Rec: 12/31/24 14:23 MB [id number]) OP-PT Subjective Patient Comments Patient Comments Pt states that she better hearing in left ear. She used to be unable to hear the telephone in another room and now she can. Pt went two days without the Meclizine. PT-OP-D Balance Start: 11/16/24 08:07 Freq: Status: Active Protocol: Document 11/17/24 08:10 MB (Rec: 11/17/24 11:16 MB [id number]) Balance Tests Other Other Balance Tests Performed Pt tends to reach arms for wall or out to side with postural testing d/t reports of feeling imbalanced PT-OP-H Neuro Start: 11/16/24 08:07 Freq: Status: Active Protocol: Document 11/17/24 08:10 MB (Rec: 11/17/24 08:35 MB [id number]) Coordination Evaluation Upper Extremity Tests Left Finger to Nose Test Minimal Impairment Right Finger to Nose Test Minimal Impairment Comments Coordination Comments Pt's B finger to nose is mildly slower and no particularly dysmetric Vital Signs Comments Vital Signs Comments See orthostatics in assessment section, positive today PT-OP-J Posture/Palpation/Skin Start: 11/16/24 08:07 Freq: Status: Active Protocol: Document 11/17/24 08:10 MB (Rec: 11/17/24 08:42 MB [id number]) Posture Evaluation Comments Posture Comments Pt standing in shoes: foward head, rounded shoulders, left more than the right, head rests in mild right rotation, changes in thoracic curvature and reduced kyphosis, pt reports history of scoliosis, left scapula mildly more elevated and protracted than the right, left iliac crest mildly higher then the right. PT-OP-K Range of Motion Start: 11/16/24 08:07 Freq: Status: Active Protocol: Document 11/17/24 08:10 MB (Rec: 11/17/24 11:16 MB [id number]) Cervical Spine Range of Motion Cervical Spine Active Testing Position Standing Flexion 50 Extension 40 Rotation Left 30 Rotation Right 45 PT-OP-M Strength Start: 11/16/24 08:07 Freq: Status: Active Protocol: Document 11/17/24 08:10 MB (Rec: 11/17/24 11:16 MB [id number]) Shoulder Strength Shoulder Manual Muscle Testing Bilateral Flexion 5 Normal Abduction (C5) 5 Normal Elbow/Forearm Strength Elbow and Forearm Manual Muscle Testing Bilateral Flexion (C6) 5 Normal Extension (C7) 5 Normal PT-OP-O Vestibular Start: 11/16/24 08:07 Freq: Status: Active Protocol: Document 11/17/24 08:10 MB (Rec: 11/17/24 11:16 MB [id number]) Vestibular Assessment Visual Testing Smooth Pursuits Horizontal Normal Smooth Pursuits Vertical Normal Saccades Horizontal Normal Saccades Vertical Normal Gaze Evoked Nystagmus With Fixation Negative Thrust Head Positive Bilateral Convergence Test WNL Spontaneous Nystagmus Negative Positional Testing [place]-Hallpike Negative Left,Negative Right Rolling Test Negative Left,Negative Right PT-OP-Q Treatments Start: 11/16/24 08:07 Freq: Status: Active Protocol: Document 12/31/24 13:48 MB (Rec: 12/31/24 14:23 MB [id number]) Therapeutic Exercises Sitting Exercises [place] knee extension Sitting Exercise Name HEP and handouts given Equipment Used 2 lb ankle weights and BIG chair Reps/Minutes 30 alternating reps, two sets Standing Exercises [place] heel raises Standing Exercise Name HEP and handouts given today Equipment Used 2 lb ankle weights and ballet bar Reps/Minutes 30 reps Hip extension Standing Exercise Name HEP and handouts given today Equipment Used 2 lb ankle weights and ballet bar Reps/Minutes 30 alternating reps, 2 sets [place] hamstring curls Standing Exercise Name HEP and handouts given today Equipment Used 2 lb ankle weights and ballet bar Reps/Minutes 30 alternating reps, 2 sets [place] abduction Standing Exercise Name HEP and handouts given today Equipment Used 2 lb ankle weights and ballet bar Reps/Minutes 30 alternating reps, 2 sets Neuro Re-Education Treatment Vestibular Rehabilitation Saccadic eye exercise Comments Too easy so will not give for HEP PT-OP-T Assessment and Plan Start: 11/16/24 08:07 Freq: Status: Active Protocol: Document 12/31/24 13:48 MB (Rec: 12/31/24 14:23 MB [id number]) Physical Therapy Assessment Rehab Potential Rehabilitation Potential Good Evaluation Complexity Number of Personal Factors/Comorbidities 1-2 Number of Body Systems Impaired 1-2 Clinical Presentation at Evaluation Evolving Impairments Impairments Activity Tolerance,Balance, Coordination,Functional Activities,Functional Mobility ,Gait,Posture,Transfers, Vestibular Goals 3 Impairment Lack of HEP [place] Goal (LTG) Pt will perform progressive HEP with I including VOR, postural, strength and balance exercises to improve VOR function, balance and posture. 12/08/24: Pt is performing balance exercises LTG Duration 8 weeks 2 Impairment Evidence of imbalance [place] Diver Goal (LTG) Pt will perform WNLs on FGA to decrease fall risk. 12/08/24: FGA score is 15/30 and pt con't to have most trouble with gait with EC and tandem. Vision changes after one cataract surgery and awaiting another surgery tomorrow affect steadiness. LTG Duration 8 weeks 1 Impairment Reports of unsteadiness and dizziness [place] Diver Goal (LTG) Pt will present with a DHI score reflecting no more than 10% to improve quality of life and function. 11/19/24: DHI score reflects 54 % impairment 12/08/24: DHI score reflects 38% , which is improvement LTG Duration 8 weeks Assessment Summary Assessment Saccadic exercise was not challenging and so did not add to vestibular HEP. Initiated [place] today and will con't with progression next treatment date. Physical Therapy Plan Frequency and Duration Frequency of Treatment 1-2x/wk Duration of treatment (weeks) 8 Plan of Care Start Date 11/17/24 Plan of Care End Date 01/15/25 Therapeutic Interventions Therapeutic Interventions Balance Training,Canalithic Repositioning,Coordination Training,Gait Training,Home Exercise Program,Manual Therapy,Neuromuscular Re- education,Patient/Caregiver Education,Self-Care/Home Management,Soft Tissue Mobilization,Taping, Therapeutic Activities, Therapeutic Exercises, Vestibular Rehabilitation Modalities Cold Pack/Ice Massage,Electric Stimulation,Hot Packs, Ultrasound Other Referrals/Consults Referrals/Consults Recommended Dr. Norwood for medication review, ENT consult for hearing testing, possible VNG Next Visit Focus/Plan Next Note Type Treatment Note Next Visit Plan [place]--complete Check pelvic alignment and chin tuck Review exercises as needed, cervical assessment/manual work and postural exercises, Check orthostatics again as needed
--- NOTE | 2025-01-06 12:11 | PT.OTN ---
Current Diagnoses Dizziness and giddiness (01/06/25) Physical Therapy Treatment Note PT-OP-A Visit Information Start: 11/16/24 08:07 Freq: Status: Active Protocol: Document 01/06/25 11:35 MB (Rec: 01/06/25 12:08 MB [id number]) Out-Patient Physical Therapy Visit Information Visit Information Visit Type Progress Note Visit Note Medicare and for Life Next progress note by 02/05/25 Visit Start Time 11:35 Visit Stop Time 12:13 Visit Number 7 Number of ADULT SECONDARY EDUCATION INSTRUCTOR Visits 0 Evaluation Information Evaluation Date 11/17/24 PT-OP-B Current Condition Start: 11/16/24 08:07 Freq: Status: Active Protocol: Document 11/17/24 08:10 MB (Rec: 11/17/24 08:35 MB [id number]) Current Condition History of Current Condition Onset Date September 2024 Current Complaints Unsteadiness, occ vertigo History of Current Condition Pt reports that in September, she started getting right hip and leg pain and she saw her doctor and went to physical therapy. She was sick for a couple of days and then she started to feel dizzy all the time. 10/25/24, she thought she was having a stroke. She was sitting at the kitchen table and it felt that her left ear shut, she got spinning dizziness and she was nauseated. ED work-up revealed vertigo. She had been taking meclizine. Pt reports: left ear pressure when it starts, decreased stamina, left ear hearing loss and tinnitus, sinus/allergy issues and takes claritin, feeling of moisture and draining in left ear. Pt denies: numbness/tingling, vision changes, history of concussion (one fall on concrete as a kid), performance of sit-ups, anemia , trouble swallowing, overhead lifting, neck trouble, B12 deficiency, eye pressure changes, chiropractor treatment, jaw problems, headaches. Pt is not dizzy rolling over in the bed. She is having trouble sleeping d/t trouble with right hip and new right knee (two years ago). Pt would like to get back to the gym and walking. She is walking with walking sticks. Pt went of Lisinopril and went off in September. Prior Treatments and Tests ED work-up 11/04/24: Head CT and Head and Neck CTA: negative Treatment Goals Patient/Caregiver Goals To feel better and get back to where she was. PT-OP-C Subjective Start: 11/16/24 08:07 Freq: Status: Active Protocol: Document 01/06/25 11:35 MB (Rec: 01/06/25 12:08 MB [id number]) OP-PT Subjective Patient Comments Patient Comments Pt has been doing [place] strengthening 3x/wk. She was a little late d/t thinking appointment was at 1145. PT-OP-D Balance Start: 11/16/24 08:07 Freq: Status: Active Protocol: Document 11/17/24 08:10 MB (Rec: 11/17/24 11:16 MB [id number]) Balance Tests Other Other Balance Tests Performed Pt tends to reach arms for wall or out to side with postural testing d/t reports of feeling imbalanced PT-OP-H Neuro Start: 11/16/24 08:07 Freq: Status: Active Protocol: Document 11/17/24 08:10 MB (Rec: 11/17/24 08:35 MB [id number]) Coordination Evaluation Upper Extremity Tests Left Finger to Nose Test Minimal Impairment Right Finger to Nose Test Minimal Impairment Comments Coordination Comments Pt's B finger to nose is mildly slower and no particularly dysmetric Vital Signs Comments Vital Signs Comments See orthostatics in assessment section, positive today PT-OP-J Posture/Palpation/Skin Start: 11/16/24 08:07 Freq: Status: Active Protocol: Document 11/17/24 08:10 MB (Rec: 11/17/24 08:42 MB [id number]) Posture Evaluation Comments Posture Comments Pt standing in shoes: foward head, rounded shoulders, left more than the right, head rests in mild right rotation, changes in thoracic curvature and reduced kyphosis, pt reports history of scoliosis, left scapula mildly more elevated and protracted than the right, left iliac crest mildly higher then the right. PT-OP-K Range of Motion Start: 11/16/24 08:07 Freq: Status: Active Protocol: Document 11/17/24 08:10 MB (Rec: 11/17/24 11:16 MB [id number]) Cervical Spine Range of Motion Cervical Spine Active Testing Position Standing Flexion 50 Extension 40 Rotation Left 30 Rotation Right 45 PT-OP-M Strength Start: 11/16/24 08:07 Freq: Status: Active Protocol: Document 11/17/24 08:10 MB (Rec: 11/17/24 11:16 MB [id number]) Shoulder Strength Shoulder Manual Muscle Testing Bilateral Flexion 5 Normal Abduction (C5) 5 Normal Elbow/Forearm Strength Elbow and Forearm Manual Muscle Testing Bilateral Flexion (C6) 5 Normal Extension (C7) 5 Normal PT-OP-O Vestibular Start: 11/16/24 08:07 Freq: Status: Active Protocol: Document 11/17/24 08:10 MB (Rec: 11/17/24 11:16 MB [id number]) Vestibular Assessment Visual Testing Smooth Pursuits Horizontal Normal Smooth Pursuits Vertical Normal Saccades Horizontal Normal Saccades Vertical Normal Gaze Evoked Nystagmus With Fixation Negative Thrust Head Positive Bilateral Convergence Test WNL Spontaneous Nystagmus Negative Positional Testing Ronnie-Hallpike Negative Left,Negative Right Rolling Test Negative Left,Negative Right PT-OP-Q Treatments Start: 11/16/24 08:07 Freq: Status: Active Protocol: Document 01/06/25 11:35 MB (Rec: 01/06/25 12:08 MB [id number]) Therapeutic Exercises Sitting Exercises [place] knee extension Comments Verbally reviewed today Standing Exercises [place] heel raises Comments Verbally reviewed today Hip extension Comments Verbally reviewed today [place] hamstring curls Comments Verbally reviewed today [place] abduction Comments Verbally reviewed today Other Exercises Review today on progress note Comments Reviewed today and pt is doing whitaker exercises less, back to gym, started Ot Self-Care/Home Management Treatment Education Other Education Re-ed pt on benefits of ENT referral, ed pt to take note of what she did the day before if she has bad sciatic and back pain the next date, consider follow-up with Dr Norwood and OPPT after this course for back pain, HEP review and ed to not do recumbent bike d/t back pain and limping today PT-OP-T Assessment and Plan Start: 11/16/24 08:07 Freq: Status: Active Protocol: Document 01/06/25 11:35 MB (Rec: 01/06/25 12:08 MB [id number]) Physical Therapy Assessment Rehab Potential Rehabilitation Potential Good Evaluation Complexity Number of Personal Factors/Comorbidities 1-2 Number of Body Systems Impaired 1-2 Clinical Presentation at Evaluation Evolving Impairments Impairments Activity Tolerance,Balance, Coordination,Functional Activities,Functional Mobility ,Gait,Posture,Transfers, Vestibular Goals 3 Impairment Lack of HEP Quality Compliance Consultant Goal (LTG) Pt will perform progressive HEP with I including VOR, postural, strength and balance exercises to improve VOR function, balance and posture. 12/08/24: Pt is performing balance exercises 01/06/25: Pt is performing HEP exercises including VOR and balance and prefers DVA vestibular exercise and so d/ cd the other VOR exercises. She is walking more outside and going to the gym and performing hallway exercises less. LTG Duration 8 weeks--progressing 2 Impairment Evidence of imbalance Quality Compliance Consultant Goal (LTG) Pt will perform WNLs on FGA to decrease fall risk. 12/08/24: FGA score is 15/30 and pt con't to have most trouble with gait with EC and tandem. Vision changes after one cataract surgery and awaiting another surgery tomorrow affect steadiness. 01/06/25: Stopped testing today d/t pt with increased sciatic and back pain that affects gait pattern LTG Duration 8 weeks 1 Impairment Reports of unsteadiness and dizziness Quality Compliance Consultant Goal (LTG) Pt will present with a DHI score reflecting no more than 10% to improve quality of life and function. 11/19/24: DHI score reflects 54 % impairment 12/08/24: DHI score reflects 38% , which is improvement 01/06/25: DHI score reflects 10% impairment, is much better and pt has met goal LTG Duration 8 weeks--MET Assessment Summary Assessment Pt is progressing towards HEP goal and she met DHI goal. Her back pain limits gait pattern with FGA today and so stopped testing. Lots of education and discussion today about noticing what increases pain and stopping that activity as it affects her balance and tolerance to PT, quality of life and posture. Physical Therapy Plan Frequency and Duration Frequency of Treatment 1-2x/wk Duration of treatment (weeks) 8 Plan of Care Start Date 11/17/24 Plan of Care End Date 01/15/25 Therapeutic Interventions Therapeutic Interventions Balance Training,Canalithic Repositioning,Coordination Training,Gait Training,Home Exercise Program,Manual Therapy,Neuromuscular Re- education,Patient/Caregiver Education,Self-Care/Home Management,Soft Tissue Mobilization,Taping, Therapeutic Activities, Therapeutic Exercises, Vestibular Rehabilitation Modalities Cold Pack/Ice Massage,Electric Stimulation,Hot Packs, Ultrasound Other Referrals/Consults Referrals/Consults Recommended Dr. Norwood for medication review, ENT consult for hearing testing, possible VNG Next Visit Focus/Plan Next Note Type Treatment Note Next Visit Plan Ot[place]--complete Check orthostatics again as needed Consider pelvic realignment exercises and chin tuck
--- NOTE | 2025-01-12 17:25 | PT.OPDS ---
Current Diagnoses Dizziness and giddiness (01/06/25) Visit Care Team Role Provider Type Alexys Norwood MD Attending Provider Physician Family Provider Primary Care Provider Referring Provider Specialty: Family Practice Address: [address], [place], [address] Email: [email or web address] Visit Number Visit Number 7 Discharge Summary PT-OP-B Current Condition Start: 11/16/24 08:07 Freq: Status: Active Protocol: Document 11/17/24 08:10 MB (Rec: 11/17/24 08:35 MB [id number]) Current Condition History of Current Condition Onset Date September 2024 Current Complaints Unsteadiness, occ vertigo History of Current Condition Pt reports that in September, she started getting right hip and leg pain and she saw her doctor and went to physical therapy. She was sick for a couple of days and then she started to feel dizzy all the time. 10/25/24, she thought she was having a stroke. She was sitting at the kitchen table and it felt that her left ear shut, she got spinning dizziness and she was nauseated. ED work-up revealed vertigo. She had been taking meclizine. Pt reports: left ear pressure when it starts, decreased stamina, left ear hearing loss and tinnitus, sinus/allergy issues and takes claritin, feeling of moisture and draining in left ear. Pt denies: numbness/tingling, vision changes, history of concussion (one fall on concrete as a kid), performance of sit-ups, anemia , trouble swallowing, overhead lifting, neck trouble, B12 deficiency, eye pressure changes, chiropractor treatment, jaw problems, headaches. Pt is not dizzy rolling over in the bed. She is having trouble sleeping d/t trouble with right hip and new right knee (two years ago). Pt would like to get back to the gym and walking. She is walking with walking sticks. Pt went of Lisinopril and went off in September. Prior Treatments and Tests ED work-up 11/04/24: Head CT and Head and Neck CTA: negative Treatment Goals Patient/Caregiver Goals To feel better and get back to where she was. PT-OP-C Subjective Start: 11/16/24 08:07 Freq: Status: Active Protocol: Document 01/06/25 11:35 MB (Rec: 01/06/25 12:08 MB [id number]) OP-PT Subjective Patient Comments Patient Comments Pt has been doing [place] strengthening 3x/wk. She was a little late d/t thinking appointment was at 1145. PT-OP-D Balance Start: 11/16/24 08:07 Freq: Status: Active Protocol: Document 11/17/24 08:10 MB (Rec: 11/17/24 11:16 MB [id number]) Balance Tests Other Other Balance Tests Performed Pt tends to reach arms for wall or out to side with postural testing d/t reports of feeling imbalanced PT-OP-H Neuro Start: 11/16/24 08:07 Freq: Status: Active Protocol: Document 11/17/24 08:10 MB (Rec: 11/17/24 08:35 MB [id number]) Coordination Evaluation Upper Extremity Tests Left Finger to Nose Test Minimal Impairment Right Finger to Nose Test Minimal Impairment Comments Coordination Comments Pt's B finger to nose is mildly slower and no particularly dysmetric Vital Signs Comments Vital Signs Comments See orthostatics in assessment section, positive today PT-OP-J Posture/Palpation/Skin Start: 11/16/24 08:07 Freq: Status: Active Protocol: Document 11/17/24 08:10 MB (Rec: 11/17/24 08:42 MB [id number]) Posture Evaluation Comments Posture Comments Pt standing in shoes: foward head, rounded shoulders, left more than the right, head rests in mild right rotation, changes in thoracic curvature and reduced kyphosis, pt reports history of scoliosis, left scapula mildly more elevated and protracted than the right, left iliac crest mildly higher then the right. PT-OP-K Range of Motion Start: 11/16/24 08:07 Freq: Status: Active Protocol: Document 11/17/24 08:10 MB (Rec: 11/17/24 11:16 MB [id number]) Cervical Spine Range of Motion Cervical Spine Active Testing Position Standing Flexion 50 Extension 40 Rotation Left 30 Rotation Right 45 PT-OP-M Strength Start: 11/16/24 08:07 Freq: Status: Active Protocol: Document 11/17/24 08:10 MB (Rec: 11/17/24 11:16 MB [id number]) Shoulder Strength Shoulder Manual Muscle Testing Bilateral Flexion 5 Normal Abduction (C5) 5 Normal Elbow/Forearm Strength Elbow and Forearm Manual Muscle Testing Bilateral Flexion (C6) 5 Normal Extension (C7) 5 Normal PT-OP-O Vestibular Start: 11/16/24 08:07 Freq: Status: Active Protocol: Document 11/17/24 08:10 MB (Rec: 11/17/24 11:16 MB [id number]) Vestibular Assessment Visual Testing Smooth Pursuits Horizontal Normal Smooth Pursuits Vertical Normal Saccades Horizontal Normal Saccades Vertical Normal Gaze Evoked Nystagmus With Fixation Negative Thrust Head Positive Bilateral Convergence Test WNL Spontaneous Nystagmus Negative Positional Testing [place]-Hallpike Negative Left,Negative Right Rolling Test Negative Left,Negative Right PT-OP-T Assessment and Plan Start: 11/16/24 08:07 Freq: Status: Active Protocol: Document 01/12/25 17:20 MB (Rec: 01/12/25 17:25 MB Desktop) Physical Therapy Assessment Assessment Summary Assessment Pt emails PT to state that her back started hurting and she is getting a MRI. She asks about canceling the rest of her vestibular appointments. She reports Dr. Norwood put in an order for her back. Will cancel rest of vestibular visits and pt to check in with the front office about getting scheduled for PT for her back pain.
== END 2025-01-13 11:22 | disposition home or self-care (01) ==
LOC: PHYS 11:30
PROVIDERS: Family Provider Family Medicine; PCP Family Medicine; Referring Provider Family Medicine; Visit Provider Family Medicine
DX: R42 Dizziness and giddiness (principal)
CPT/HCPCS: 97110; 97112; 97140; 97162; 97535

== ENCOUNTER → 2025-02-04 11:05 | Outpatient (CLI) | payer MEDICARE, OTHER, SELFPAY ==
[2022-06-07 15:10] VITALS: BMI 24.7
--- NOTE | 2025-02-04 11:07 | DI.MRI.S_ITS ---
PROCEDURE: MR LUMBAR SPINE WO CON INDICATIONS: RIGHT HIP PAIN/RIGHT SIDED LBP/SCIATICA, RIGHT TECHNIQUE: Noncontrast sagittal T1 spin echo and T2 fast echo, sagittal STIR, and T2 fast spin echo through the lumbar spine. In cases with scoliosis, additional coronal T2 fast spin echo may be performed. COMPARISON: None. FINDINGS: Image quality: Excellent Mild levoscoliosis lumbar spine, centered at L3. Mild retrolisthesis of L1 on L2, L2 on L3. Grade 1 anterolisthesis of L5 on S1. Moderate burst fracture of L1 vertebral body, without marrow edema, chronic. Mild retropulsion of posterior L1 vertebral body. Diffuse marrow edema of L2 and superior endplate of L3, favoring degenerative. Multilevel disc bulge and disc desiccation. Conus terminates at the level of L1-2. There is a small 2 mm T2 hypointense lesion along the cauda equina nerve root at the level of L1-2 (3:9) incompletely evaluated. Right neural foraminal stenosis: Mild at T12-L1. Mild at L1-2, moderate at L2-3. Mild at L3-4, L4-5. Left neural foraminal stenosis: Moderate at L1-2. Moderate at L2-3, mild at L3-4, L4-5. Axial images: T12-L1: Mild bilateral facet arthropathy. Mild disc bulge. No central canal stenosis. L1-2: Posterior disc uncovering. Mild bilateral facet arthropathy. No central canal stenosis. L2-3: Disc bulge. Moderate bilateral facet arthropathy with epidural lipomatosis. Moderate central canal stenosis. L3-4: Disc bulge. Moderate bilateral facet arthropathy with ligamentum flap per trophy. Mild central canal stenosis. L4-5: Mild bilateral facet arthropathy. Mild disc bulge. No central canal stenosis. L5-S1: Moderate bilateral facet arthropathy. Mild disc bulge. No central canal stenosis. Visualized sacrum is intact. No abdominal aortic aneurysm. Large right renal cyst in the upper pole, partially visualized. Scarring in the mid zone of the left kidney. IMPRESSION: 1. Moderate burst fracture of L1 vertebral body. 2. 2 mm T2 hypointense lesion along the cauda equina nerve root at the level of L1-2, incompletely evaluated. Recommend further evaluation with lumbar spine with intravenous contrast. 3. Multilevel degenerative changes of the lumbar spine, most pronounced at L2-3, where there is central canal stenosis and moderate bilateral neural foraminal stenosis. Dictated by: Luz Ness M.D. on 02/04/2025 at 14:01 Approved by: Luz Ness M.D. on 02/04/2025 at 14:13
== END ==
PROVIDERS: Family Provider Family Medicine; PCP Family Medicine; Referring Provider Family Medicine; Visit Provider Family Medicine
DX: M54.31 Sciatica, right side (principal); M47.816 Spondylosis without myelopathy or radiculopathy, lumbar region; S32.011A Stable burst fracture of first lumbar vertebra, initial encounter for closed fracture; M47.817 Spondylosis without myelopathy or radiculopathy, lumbosacral region; M48.061 Spinal stenosis, lumbar region without neurogenic claudication; M89.9 Disorder of bone, unspecified; M25.551 Pain in right hip; M54.50 Low back pain, unspecified
CPT/HCPCS: 72148

== ENCOUNTER 2025-02-11 15:15 | Outpatient (RCR) | payer MEDICARE, OTHER, SELFPAY ==
[2022-06-07 15:10] VITALS: BMI 24.7
--- NOTE | 2025-01-14 16:35 | PT.OIE ---
Current Diagnoses Pain in right hip (01/14/25) Lumbago with sciatica, right side (01/14/25) Past Medical History (Last Updated 05/31/22 @ 10:16 by Jennifer Vega, PABLITO) Anesthesia complication BCC (basal cell carcinoma) Diverticulitis Diverticulosis DVT (deep venous thrombosis) (03/2021) Easy bruisability History of Mohs micrographic surgery for skin cancer HLD (hyperlipidemia) HTN (hypertension) Raynaud's syndrome Sinus drainage Past Surgical History (Last Updated 05/31/22 @ 10:15 by Jennifer Vega RN) Hx of colonoscopy Hx of hernia repair Hx of removal of cyst Hx of tonsillectomy Visit Care Team Role Provider Type Alexys Norwood MD Attending Provider Physician Family Provider Primary Care Provider Referring Provider Specialty: Family Practice Address: [facility] [place], [facility] Email: [email or web address] Physical Therapy Initial Evaluation PT-OP-A Visit Information Start: 01/13/25 16:12 Freq: Status: Active Protocol: Document 01/14/25 13:00 MB (Rec: 01/14/25 13:36 MB Desktop) Out-Patient Physical Therapy Visit Information Visit Information Visit Type Initial Evaluation Visit Note Medicare and for Life Visit Start Time 13:00 Visit Stop Time 13:38 Visit Number 1 Number of SWIMMING POOL PLASTERER HELPER Visits 0 Evaluation Information Evaluation Date 01/14/25 Precautions Precautions OP, possible L1 compression fracture PT-OP-B Current Condition Start: 01/13/25 16:12 Freq: Status: Active Protocol: Document 01/14/25 13:00 MB (Rec: 01/14/25 13:36 MB Desktop) Current Condition History of Current Condition Onset Date August 2024 Current Complaints Right sciatic and band pain right leg History of Current Condition Right sciatic pain started in Aug 2024. Pt reports pain from right SI area around hip and to knee. She couldn't lift her leg without use of hands and couldn't put her shoes on. She went to outpatient PT at another clinic. In 2020, she had a very comprehensive colonoscopy in [place] and it said butterfly compression fracture on L1 completely compressed and a disc issue. Pt will have a MRI and it is not yet scheduled. PMH includes right TKA. Pain is intermittent. It is hard to get comfortable to sleep but she has had a couple of nights without too much trouble. Straightening right leg hurts. Pt was recently seen at this clinic by this PT for vestibular rehabilitation with history of dizziness and tinnitus in left ear. She underwent two cataract surgeries and PT was stopped at the beginning of this week d/t severe onset of the right leg pain recurring. She stopped any exercises that could provoke pain. She did also return to the gym and did use the recumbent bike. Pt reports shooting pain and like right leg is going to collapse on her. She is using QC in left hand. Prior Treatments and Tests None yet, old hip x-rays show mod OA and old right knee Parry's cyst Treatment Goals Patient/Caregiver Goals To decrease pain and increase function PT-OP-C Subjective Start: 01/13/25 16:12 Freq: Status: Active Protocol: Document 01/14/25 13:00 MB (Rec: 01/14/25 13:36 MB Desktop) OP-PT Subjective Patient Comments Patient Comments See history of current condition Patient Questionnaires Lower Extremity Functional Scale LEFS Score 16 LEFS Impairment 80 to 99% Impaired (Score 1-16 ) PT-OP-G Mobility & Gait Start: 01/13/25 16:12 Freq: Status: Active Protocol: Document 01/14/25 13:00 MB (Rec: 01/14/25 13:36 MB Desktop) OP Gait Assessment Comments Gait Comments Pt gait trains slowly with too tall QC in left hand and PT lowers and she con't with antalgic and step-to gait that is very slow PT-OP-J Posture/Palpation/Skin Start: 01/13/25 16:12 Freq: Status: Active Protocol: Document 01/14/25 13:00 MB (Rec: 01/14/25 13:36 MB Desktop) Posture Evaluation Comments Posture Comments Given possible L1 fracture, did not push lumbar ROM in standing or leg ROM in sitting . Standing posture in bare feet: Pt is afraid that right leg will give way and she holds onto chair on the left. Forward posture with rounded shoulders, left shoulder is higher than the left and more protracted at scapula. Forward head posture and flattened cervical spine, flattened thoracic kyphosis and lumbar lordosis and pt with right convexity in spine, flexed posture at hips and right iliac crest is higher than the left but then pt changes stance and this levels out, favoring right leg that is mildly in front, right knee slightly flexed in standing. PT-OP-M Strength Start: 01/13/25 16:12 Freq: Status: Active Protocol: Document 01/14/25 13:00 MB (Rec: 01/14/25 13:36 MB Desktop) Hip Strength Hip Manual Muscle Testing Left Flexion (L2) 4- Good- Abduction 4 Good Right Flexion (L2) 3+ Fair+ Abduction 3+ Fair+ Comments All MMT in supine with opposite leg straight Knee Strength Knee Manual Muscle Testing Left Flexion (S2) 4+ Good+ Extension (L3) 5 Normal Right Flexion (S2) 4+ Good+ Extension (L3) 4+ Good+ Ankle/Foot Strength Ankle and Foot Manual Muscle Testing Left Dorsiflexion (L4) 5 Normal Right Dorsiflexion (L4) 5 Normal Toe Strength Toe Manual Muscle Testing Left Great Toe Extension 4+ Good+ Right Great Toe Extension 4+ Good+ PT-OP-Q Treatments Start: 01/13/25 16:12 Freq: Status: Active Protocol: Document 01/14/25 13:00 MB (Rec: 01/14/25 13:36 MB Desktop) Therapeutic Exercises Supine Exercises Reviewed her current exercises Supine Exercise Name APs, HS, QS and GS, massaging feet, marching, pelvic tilt. Comments Asked pt to d/c hip rotator stretch, bridging, SLR. Self-Care/Home Management Treatment Education Patient Education Body Mechanics,Home Exercise Program,Joint Protection,Pain Management,Posture Other Education Ed pt on proper sleeping position with pillow support between legs if side lying con 't to use QC at properly set height to help with balance, pain and right leg buckling, log rolling and use of ice and heat PT-OP-T Assessment and Plan Start: 01/13/25 16:12 Freq: Status: Active Protocol: Document 01/14/25 13:00 MB (Rec: 01/14/25 13:36 MB Desktop) Physical Therapy Assessment Rehab Potential Rehabilitation Potential Fair Evaluation Complexity Number of Personal Factors/Comorbidities 1-2 Number of Body Systems Impaired 3 Clinical Presentation at Evaluation Evolving Impairments Impairments Activity Tolerance,Balance, Coordination,Functional Activities,Functional Mobility ,Gait,Pain,Posture,ROM,Soft Tissue Mobility,Strength Goals 3 Impairment Evidence of imbalance Ict Educator Goal (LTG) Pt will perform WNLs on FGA or [place] to decrease fall risk . LTG Duration 8 weeks 2 Impairment Slow gait speed Intermediate Goal (LTG) Pt will gait train at least 1413 feet in 6 minutes with or without LRAD to improve community ambulation and allow return to walking in [place]. LTG Duration 8 weeks 1 Impairment LEF score reflecting 80% impairment Ict Educator Goal (LTG) Pt will present with LEF score reflecting no more than 30% impairment to improve quality of life and pain. LTG Duration 8 weeks Assessment Summary Assessment Pt is very guarded in movement today and unsteady on feet and so gentle assessment of range, posture and strength. Pt reports known history of L1 compression fracture found in 2020 and is awaiting MRI. She presents with spinal changes with postural assessment and weakness with LE MMT. Self- care management and education today and reviewed what exercises she likes to do and she will con't in pain-free exercises only, use cane, work on log rolling and sleeping positioning. Pt will benefit from PT to improve mobility, balance, core and LE strength, gait and pain. PT is concerned about spinal pathology/severe lumbar radiculopathy and disc issue given presentation and reports of history. Will proceed gently. Physical Therapy Plan Frequency and Duration Frequency of Treatment 1-2x/wk Duration of treatment (weeks) 8 Plan of Care Start Date 01/14/25 Plan of Care End Date 03/16/25 Therapeutic Interventions Therapeutic Interventions Balance Training,Canalithic Repositioning,Coordination Training,Gait Training,Home Exercise Program,Joint Mobilizations,Manual Therapy, Neuromuscular Re-education, Patient/Caregiver Education, Self-Care/Home Management,Soft Tissue Mobilization,Taping, Therapeutic Activities, Therapeutic Exercises, Vestibular Rehabilitation Modalities Cold Pack/Ice Massage,Electric Stimulation,Hot Packs, Ultrasound Next Visit Focus/Plan Next Note Type Treatment Note Next Visit Plan Initiate manual work, consider pelvic realignment exercises and diaphragm breathing
--- NOTE | 2025-01-14 16:35 | PT.OPPOC ---
Physical, Occupational & Speech Therapy At [facility] Current Diagnoses Pain in right hip (01/14/25) Lumbago with sciatica, right side (01/14/25) Visit Care Team Role Provider Type Alexys Norwood MD Attending Provider Physician Family Provider Primary Care Provider Referring Provider Specialty: Family Practice Address: [facility] [place], [facility] Email: [email or web address] Plan Of Care PT-OP-B Current Condition Start: 01/13/25 16:12 Freq: Status: Active Protocol: Document 01/14/25 13:00 MB (Rec: 01/14/25 13:36 MB Desktop) Current Condition History of Current Condition Onset Date August 2024 Current Complaints Right sciatic and band pain right leg History of Current Condition Right sciatic pain started in Aug 2024. Pt reports pain from right SI area around hip and to knee. She couldn't lift her leg without use of hands and couldn't put her shoes on. She went to outpatient PT at another clinic. In 2020, she had a very comprehensive colonoscopy in [place] and it said butterfly compression fracture on L1 completely compressed and a disc issue. Pt will have a MRI and it is not yet scheduled. PMH includes right TKA. Pain is intermittent. It is hard to get comfortable to sleep but she has had a couple of nights without too much trouble. Straightening right leg hurts. Pt was recently seen at this clinic by this PT for vestibular rehabilitation with history of dizziness and tinnitus in left ear. She underwent two cataract surgeries and PT was stopped at the beginning of this week d/t severe onset of the right leg pain recurring. She stopped any exercises that could provoke pain. She did also return to the gym and did use the recumbent bike. Pt reports shooting pain and like right leg is going to collapse on her. She is using QC in left hand. Prior Treatments and Tests None yet, old hip x-rays show mod OA and old right knee Parry's cyst Treatment Goals Patient/Caregiver Goals To decrease pain and increase function PT-OP-T Assessment and Plan Start: 01/13/25 16:12 Freq: Status: Active Protocol: Document 01/14/25 13:00 MB (Rec: 01/14/25 13:36 MB Desktop) Physical Therapy Assessment Rehab Potential Rehabilitation Potential Fair Evaluation Complexity Number of Personal Factors/Comorbidities 1-2 Number of Body Systems Impaired 3 Clinical Presentation at Evaluation Evolving Impairments Impairments Activity Tolerance,Balance, Coordination,Functional Activities,Functional Mobility ,Gait,Pain,Posture,ROM,Soft Tissue Mobility,Strength Goals 3 Impairment Evidence of imbalance Coil Rewind Machine Operator Goal (LTG) Pt will perform WNLs on FGA or Tinetti to decrease fall risk . LTG Duration 8 weeks 2 Impairment Slow gait speed Coil Rewind Machine Operator Goal (LTG) Pt will gait train at least 1413 feet in 6 minutes with or without LRAD to improve community ambulation and allow return to walking in [place]. LTG Duration 8 weeks 1 Impairment LEF score reflecting 80% impairment Mcfp Goal (LTG) Pt will present with LEF score reflecting no more than 30% impairment to improve quality of life and pain. LTG Duration 8 weeks Assessment Summary Assessment Pt is very guarded in movement today and unsteady on feet and so gentle assessment of range, posture and strength. Pt reports known history of L1 compression fracture found in 2020 and is awaiting MRI. She presents with spinal changes with postural assessment and weakness with LE MMT. Self- care management and education today and reviewed what exercises she likes to do and she will con't in pain-free exercises only, use cane, work on log rolling and sleeping positioning. Pt will benefit from PT to improve mobility, balance, core and LE strength, gait and pain. PT is concerned about spinal pathology/severe lumbar radiculopathy and disc issue given presentation and reports of history. Will proceed gently. Physical Therapy Plan Frequency and Duration Frequency of Treatment 1-2x/wk Duration of treatment (weeks) 8 Plan of Care Start Date 01/14/25 Plan of Care End Date 03/16/25 Therapeutic Interventions Therapeutic Interventions Balance Training,Canalithic Repositioning,Coordination Training,Gait Training,Home Exercise Program,Joint Mobilizations,Manual Therapy, Neuromuscular Re-education, Patient/Caregiver Education, Self-Care/Home Management,Soft Tissue Mobilization,Taping, Therapeutic Activities, Therapeutic Exercises, Vestibular Rehabilitation Modalities Cold Pack/Ice Massage,Electric Stimulation,Hot Packs, Ultrasound Next Visit Focus/Plan Next Note Type Treatment Note Next Visit Plan Initiate manual work, consider pelvic realignment exercises and diaphragm breathing Plan of Care Dates Plan of Care Start Date 01/14/25 Plan of Care End Date 03/16/25 Electronically Signed by: Kelly Hull, PT 01/14/25 0502 If you are in agreement with this Plan of Care, please return a signed and dated copy. I have reviewed this Plan of Care and certify that the skilled therapy services above are required to meet the patient?s needs. Physician Signature Date Printed Name and Credentials Clinical Instructor Signature Printed Name and Credentials
--- NOTE | 2025-01-21 09:45 | PT.OTN ---
Current Diagnoses Pain in right hip (01/21/25) Lumbago with sciatica, right side (01/21/25) Physical Therapy Treatment Note PT-OP-A Visit Information Start: 01/13/25 16:12 Freq: Status: Active Protocol: Document 01/21/25 09:05 MB (Rec: 01/21/25 09:15 MB Desktop) Out-Patient Physical Therapy Visit Information Visit Information Visit Type Treatment Note Visit Note Medicare and for Life Visit Start Time 09:05 Visit Stop Time 09:45 Visit Number 2 Number of CLOTH SPREADER Visits 0 Evaluation Information Evaluation Date 01/14/25 Precautions Precautions OP, possible L1 compression fracture PT-OP-B Current Condition Start: 01/13/25 16:12 Freq: Status: Active Protocol: Document 01/14/25 13:00 MB (Rec: 01/14/25 13:36 MB Desktop) Current Condition History of Current Condition Onset Date August 2024 Current Complaints Right sciatic and band pain right leg History of Current Condition Right sciatic pain started in Aug 2024. Pt reports pain from right SI area around hip and to knee. She couldn't lift her leg without use of hands and couldn't put her shoes on. She went to outpatient PT at another clinic. In 2020, she had a very comprehensive colonoscopy in [place] and it said butterfly compression fracture on L1 completely compressed and a disc issue. Pt will have a MRI and it is not yet scheduled. PMH includes right TKA. Pain is intermittent. It is hard to get comfortable to sleep but she has had a couple of nights without too much trouble. Straightening right leg hurts. Pt was recently seen at this clinic by this PT for vestibular rehabilitation with history of dizziness and tinnitus in left ear. She underwent two cataract surgeries and PT was stopped at the beginning of this week d/t severe onset of the right leg pain recurring. She stopped any exercises that could provoke pain. She did also return to the gym and did use the recumbent bike. Pt reports shooting pain and like right leg is going to collapse on her. She is using QC in left hand. Prior Treatments and Tests None yet, old hip x-rays show mod OA and old right knee Parry's cyst Treatment Goals Patient/Caregiver Goals To decrease pain and increase function PT-OP-C Subjective Start: 01/13/25 16:12 Freq: Status: Active Protocol: Document 01/21/25 09:05 MB (Rec: 01/21/25 09:21 MB Desktop) OP-PT Subjective Patient Comments Patient Comments Pt reports two good days. She walked about 1/4 mile with B hiking sticks at [facility]. 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 PT-OP-G Mobility & Gait Start: 01/13/25 16:12 Freq: Status: Active Protocol: Document 01/14/25 13:00 MB (Rec: 01/14/25 13:36 MB Desktop) OP Gait Assessment Comments Gait Comments Pt gait trains slowly with too tall QC in left hand and PT lowers and she con't with antalgic and step-to gait that is very slow PT-OP-J Posture/Palpation/Skin Start: 01/13/25 16:12 Freq: Status: Active Protocol: Document 01/14/25 13:00 MB (Rec: 01/14/25 13:36 MB Desktop) Posture Evaluation Comments Posture Comments Given possible L1 fracture, did not push lumbar ROM in standing or leg ROM in sitting . Standing posture in bare feet: Pt is afraid that right leg will give way and she holds onto chair on the left. Forward posture with rounded shoulders, left shoulder is higher than the left and more protracted at scapula. Forward head posture and flattened cervical spine, flattened thoracic kyphosis and lumbar lordosis and pt with right convexity in spine, flexed posture at hips and right iliac crest is higher than the left but then pt changes stance and this levels out, favoring right leg that is mildly in front, right knee slightly flexed in standing. PT-OP-M Strength Start: 01/13/25 16:12 Freq: Status: Active Protocol: Document 01/14/25 13:00 MB (Rec: 01/14/25 13:36 MB Desktop) Hip Strength Hip Manual Muscle Testing Left Flexion (L2) 4- Good- Abduction 4 Good Right Flexion (L2) 3+ Fair+ Abduction 3+ Fair+ Comments All MMT in supine with opposite leg straight Knee Strength Knee Manual Muscle Testing Left Flexion (S2) 4+ Good+ Extension (L3) 5 Normal Right Flexion (S2) 4+ Good+ Extension (L3) 4+ Good+ Ankle/Foot Strength Ankle and Foot Manual Muscle Testing Left Dorsiflexion (L4) 5 Normal Right Dorsiflexion (L4) 5 Normal Toe Strength Toe Manual Muscle Testing Left Great Toe Extension 4+ Good+ Right Great Toe Extension 4+ Good+ PT-OP-Q Treatments Start: 01/13/25 16:12 Freq: Status: Active Protocol: Document 01/21/25 09:05 MB (Rec: 01/21/25 09:21 MB Desktop) Therapeutic Exercises Supine Exercises Pelvic realignment exercises Supine Exercise Name HEP and handout given today Side bilateral Equipment Used Blue ball, towel roll for last exercise Reps/Minutes 5 reps, 3 sec hold all exercises in order Comments Feet together ball squeeze iso , knee opp ankle iso, thigh press down iso Neuro Re-Education Treatment Balance Activities Diaphragm breathing Details HEP and handout today Comments Pt supine with head and legs supported, nasal breathing in and out to maximize CO2 and nitric oxide exchange to help with parasympathetic response to decrease pain, improve relaxation and prepare for sleeping. Self-Care/Home Management Treatment Education Patient Education Body Mechanics,Home Exercise Program,Joint Protection,Pain Management Other Education Reviewed anatomy of butterfly compression fracture, photos online, plan for work-up and for no increased pain with PT, re-ed pt on proper sleeping position to protect back, consider taping mouth to help with nasal breathing and diaphragm breathing. PT-OP-T Assessment and Plan Start: 01/13/25 16:12 Freq: Status: Active Protocol: Document 01/21/25 09:05 MB (Rec: 01/21/25 09:15 MB Desktop) Physical Therapy Assessment Rehab Potential Rehabilitation Potential Fair Evaluation Complexity Number of Personal Factors/Comorbidities 1-2 Number of Body Systems Impaired 3 Clinical Presentation at Evaluation Evolving Impairments Impairments Activity Tolerance,Balance, Coordination,Functional Activities,Functional Mobility ,Gait,Pain,Posture,ROM,Soft Tissue Mobility,Strength Goals 3 Impairment Evidence of imbalance Correction Goal (LTG) Pt will perform WNLs on FGA or Tinetti to decrease fall risk . LTG Duration 8 weeks 2 Impairment Slow gait speed Cryptologist Goal (LTG) Pt will gait train at least 1413 feet in 6 minutes with or without LRAD to improve community ambulation and allow return to walking in [place]. LTG Duration 8 weeks 1 Impairment LEF score reflecting 80% impairment Correction Goal (LTG) Pt will present with LEF score reflecting no more than 30% impairment to improve quality of life and pain. LTG Duration 8 weeks Assessment Summary Assessment Initiated anatomy, breathing and relaxation training today and alignment exercises. Will con't to work on nasal and diaphragm breathing with pt during treatments and manual work to engage parasympathetic nervous system. Physical Therapy Plan Frequency and Duration Frequency of Treatment 1-2x/wk Duration of treatment (weeks) 8 Plan of Care Start Date 01/14/25 Plan of Care End Date 03/16/25 Therapeutic Interventions Therapeutic Interventions Balance Training,Canalithic Repositioning,Coordination Training,Gait Training,Home Exercise Program,Joint Mobilizations,Manual Therapy, Neuromuscular Re-education, Patient/Caregiver Education, Self-Care/Home Management,Soft Tissue Mobilization,Taping, Therapeutic Activities, Therapeutic Exercises, Vestibular Rehabilitation Modalities Cold Pack/Ice Massage,Electric Stimulation,Hot Packs, Ultrasound Next Visit Focus/Plan Next Note Type Treatment Note Next Visit Plan Review pelvic realignment exercises, initiate manual work with possibly mouth taped and diaphragm breathing, gentle progression of core engagement and exercises, only gentle stretches
--- NOTE | 2025-02-04 14:29 | PT.OTN ---
Current Diagnoses Pain in right hip (02/04/25) Lumbago with sciatica, right side (02/04/25) Physical Therapy Treatment Note PT-OP-A Visit Information Start: 01/13/25 16:12 Freq: Status: Active Protocol: Document 02/04/25 13:45 MB (Rec: 02/04/25 14:28 MB Desktop) Out-Patient Physical Therapy Visit Information Visit Information Visit Type Treatment Note Visit Note Medicare and for Life Visit Start Time 13:45 Visit Stop Time 14:25 Visit Number 3 Number of ECOLOGY TEACHER Visits 0 Evaluation Information Evaluation Date 01/14/25 Precautions Precautions OP, possible L1 compression fracture, clot right ankle in the past, chronic, and not taking blood thinners PT-OP-B Current Condition Start: 01/13/25 16:12 Freq: Status: Active Protocol: Document 01/14/25 13:00 MB (Rec: 01/14/25 13:36 MB Desktop) Current Condition History of Current Condition Onset Date August 2024 Current Complaints Right sciatic and band pain right leg History of Current Condition Right sciatic pain started in Aug 2024. Pt reports pain from right SI area around hip and to knee. She couldn't lift her leg without use of hands and couldn't put her shoes on. She went to outpatient PT at another clinic. In 2020, she had a very comprehensive colonoscopy in [place] and it said butterfly compression fracture on L1 completely compressed and a disc issue. Pt will have a MRI and it is not yet scheduled. PMH includes right TKA. Pain is intermittent. It is hard to get comfortable to sleep but she has had a couple of nights without too much trouble. Straightening right leg hurts. Pt was recently seen at this clinic by this PT for vestibular rehabilitation with history of dizziness and tinnitus in left ear. She underwent two cataract surgeries and PT was stopped at the beginning of this week d/t severe onset of the right leg pain recurring. She stopped any exercises that could provoke pain. She did also return to the gym and did use the recumbent bike. Pt reports shooting pain and like right leg is going to collapse on her. She is using QC in left hand. Prior Treatments and Tests None yet, old hip x-rays show mod OA and old right knee Parry's cyst Treatment Goals Patient/Caregiver Goals To decrease pain and increase function PT-OP-C Subjective Start: 01/13/25 16:12 Freq: Status: Active Protocol: Document 02/04/25 13:45 MB (Rec: 02/04/25 14:28 MB Desktop) OP-PT Subjective Patient Comments Patient Comments Pt has not taken Meclizine for two weeks and she feels less tired. She got MRI done today. She last the SBQC because it makes her feel steadier. Pt is doing pelvic realignment exercises and breathing twice a day. PT-OP-G Mobility & Gait Start: 01/13/25 16:12 Freq: Status: Active Protocol: Document 01/14/25 13:00 MB (Rec: 01/14/25 13:36 MB Desktop) OP Gait Assessment Comments Gait Comments Pt gait trains slowly with too tall QC in left hand and PT lowers and she con't with antalgic and step-to gait that is very slow PT-OP-J Posture/Palpation/Skin Start: 01/13/25 16:12 Freq: Status: Active Protocol: Document 01/14/25 13:00 MB (Rec: 01/14/25 13:36 MB Desktop) Posture Evaluation Comments Posture Comments Given possible L1 fracture, did not push lumbar ROM in standing or leg ROM in sitting . Standing posture in bare feet: Pt is afraid that right leg will give way and she holds onto chair on the left. Forward posture with rounded shoulders, left shoulder is higher than the left and more protracted at scapula. Forward head posture and flattened cervical spine, flattened thoracic kyphosis and lumbar lordosis and pt with right convexity in spine, flexed posture at hips and right iliac crest is higher than the left but then pt changes stance and this levels out, favoring right leg that is mildly in front, right knee slightly flexed in standing. PT-OP-M Strength Start: 01/13/25 16:12 Freq: Status: Active Protocol: Document 01/14/25 13:00 MB (Rec: 01/14/25 13:36 MB Desktop) Hip Strength Hip Manual Muscle Testing Left Flexion (L2) 4- Good- Abduction 4 Good Right Flexion (L2) 3+ Fair+ Abduction 3+ Fair+ Comments All MMT in supine with opposite leg straight Knee Strength Knee Manual Muscle Testing Left Flexion (S2) 4+ Good+ Extension (L3) 5 Normal Right Flexion (S2) 4+ Good+ Extension (L3) 4+ Good+ Ankle/Foot Strength Ankle and Foot Manual Muscle Testing Left Dorsiflexion (L4) 5 Normal Right Dorsiflexion (L4) 5 Normal Toe Strength Toe Manual Muscle Testing Left Great Toe Extension 4+ Good+ Right Great Toe Extension 4+ Good+ PT-OP-Q Treatments Start: 01/13/25 16:12 Freq: Status: Active Protocol: Document 02/04/25 13:45 MB (Rec: 02/04/25 14:28 MB Desktop) Therapeutic Exercises Supine Exercises Hamstring MWM exercise Supine Exercise Name HEP and handout given Side bilateral Reps/Minutes 10 flexion and extension each leg Comments [place] leg bent Hip rotator stretch Supine Exercise Name HEP and handout given Side bilateral Reps/Minutes 1 rep each leg, hold several sec Comments [place] leg bent, ankle on knee Lumbar rocking knees bent Supine Exercise Name HEP and handout given Side bilateral Comments Gentle rocking side to side DKTC Supine Exercise Name HEP and handout given Side bilateral Equipment Used Towel under knees Reps/Minutes A few reps gently today Comments DKTC and SKTC Pelvic realignment exercises Supine Exercise Name HEP and handout given today Side bilateral Equipment Used Blue ball, towel roll for last exercise Reps/Minutes 5 reps, 3 sec hold all exercises in order Comments Feet together ball squeeze iso , knee opp ankle iso, thigh press down iso Manual Therapy Treatment Consent Patient gave verbal consent for manual Yes treatment Other Other Manual Treatments Pt supine with head and legs supported: STM and positional release B quads, glutes, hip rotators, pt reports history of clot right ankle and that she is no longer on blood thinners and she does ROM ankle exercises every morning, hamstrings Neuro Re-Education Treatment Balance Activities Diaphragm breathing Comments Pt performs I today PT-OP-T Assessment and Plan Start: 01/13/25 16:12 Freq: Status: Active Protocol: Document 02/04/25 13:45 MB (Rec: 02/04/25 14:28 MB Desktop) Physical Therapy Assessment Rehab Potential Rehabilitation Potential Fair Evaluation Complexity Number of Personal Factors/Comorbidities 1-2 Number of Body Systems Impaired 3 Clinical Presentation at Evaluation Evolving Impairments Impairments Activity Tolerance,Balance, Coordination,Functional Activities,Functional Mobility ,Gait,Pain,Posture,ROM,Soft Tissue Mobility,Strength Goals 3 Impairment Evidence of imbalance Electric Motor Fitter Goal (LTG) Pt will perform WNLs on FGA or Tinetti to decrease fall risk . LTG Duration 8 weeks 2 Impairment Slow gait speed Jail Goal (LTG) Pt will gait train at least 1413 feet in 6 minutes with or without LRAD to improve community ambulation and allow return to walking in [place]. LTG Duration 8 weeks 1 Impairment LEF score reflecting 80% impairment Jail Goal (LTG) Pt will present with LEF score reflecting no more than 30% impairment to improve quality of life and pain. LTG Duration 8 weeks Assessment Summary Assessment Progressed gentle lumbar and hip ROM/stretching exercises today and will monitor how she feels with these. Lumbar MRI results not yet in at time treatment ends. Physical Therapy Plan Frequency and Duration Frequency of Treatment 1-2x/wk Duration of treatment (weeks) 8 Plan of Care Start Date 01/14/25 Plan of Care End Date 03/16/25 Therapeutic Interventions Therapeutic Interventions Balance Training,Canalithic Repositioning,Coordination Training,Gait Training,Home Exercise Program,Joint Mobilizations,Manual Therapy, Neuromuscular Re-education, Patient/Caregiver Education, Self-Care/Home Management,Soft Tissue Mobilization,Taping, Therapeutic Activities, Therapeutic Exercises, Vestibular Rehabilitation Modalities Cold Pack/Ice Massage,Electric Stimulation,Hot Packs, Ultrasound Next Visit Focus/Plan Next Note Type Treatment Note Next Visit Plan Ongoing manual work, gentle progression of core engagement and exercises
--- NOTE | 2025-02-10 13:28 | PT-IP ANOTE ---
Lumbar MRI 02/04/25: IMPRESSION: 1. Moderate burst fracture of L1 vertebral body. 2. 2 mm T2 hypointense lesion along the cauda equina nerve root at the level of L1-2, incompletely evaluated. Recommend further evaluation with lumbar spine with intravenous contrast. 3. Multilevel degenerative changes of the lumbar spine, most pronounced at L2-3, where there is central canal stenosis and moderate bilateral neural foraminal stenosis.
--- NOTE | 2025-02-11 16:15 | PT.OTN ---
Current Diagnoses Pain in right hip (02/11/25) Lumbago with sciatica, right side (02/11/25) Physical Therapy Treatment Note PT-OP-A Visit Information Start: 01/13/25 16:12 Freq: Status: Active Protocol: Document 02/11/25 15:20 MB (Rec: 02/11/25 16:15 MB Desktop) Out-Patient Physical Therapy Visit Information Visit Information Visit Type Treatment Note Visit Note Medicare and for Life Visit Start Time 15:20 Visit Stop Time 16:00 Visit Number 4 Number of WORSHIP DIRECTOR Visits 0 Evaluation Information Evaluation Date 01/14/25 Precautions Precautions OP, possible L1 compression fracture, clot right ankle in the past, chronic, and not taking blood thinners PT-OP-B Current Condition Start: 01/13/25 16:12 Freq: Status: Active Protocol: Document 01/14/25 13:00 MB (Rec: 01/14/25 13:36 MB Desktop) Current Condition History of Current Condition Onset Date August 2024 Current Complaints Right sciatic and band pain right leg History of Current Condition Right sciatic pain started in Aug 2024. Pt reports pain from right SI area around hip and to knee. She couldn't lift her leg without use of hands and couldn't put her shoes on. She went to outpatient PT at another clinic. In 2020, she had a very comprehensive colonoscopy in [place] and it said butterfly compression fracture on L1 completely compressed and a disc issue. Pt will have a MRI and it is not yet scheduled. PMH includes right TKA. Pain is intermittent. It is hard to get comfortable to sleep but she has had a couple of nights without too much trouble. Straightening right leg hurts. Pt was recently seen at this clinic by this PT for vestibular rehabilitation with history of dizziness and tinnitus in left ear. She underwent two cataract surgeries and PT was stopped at the beginning of this week d/t severe onset of the right leg pain recurring. She stopped any exercises that could provoke pain. She did also return to the gym and did use the recumbent bike. Pt reports shooting pain and like right leg is going to collapse on her. She is using QC in left hand. Prior Treatments and Tests None yet, old hip x-rays show mod OA and old right knee Parry's cyst Treatment Goals Patient/Caregiver Goals To decrease pain and increase function PT-OP-C Subjective Start: 01/13/25 16:12 Freq: Status: Active Protocol: Document 02/11/25 15:20 MB (Rec: 02/11/25 16:15 MB Desktop) OP-PT Subjective Patient Comments Patient Comments Pt saw Dr. Norwood and he is sending a referral for Dr. Hart, pain doctor, and MRI with injection. Pt states she did okay this morning but she needed her cane later. PT-OP-G Mobility & Gait Start: 01/13/25 16:12 Freq: Status: Active Protocol: Document 01/14/25 13:00 MB (Rec: 01/14/25 13:36 MB Desktop) OP Gait Assessment Comments Gait Comments Pt gait trains slowly with too tall QC in left hand and PT lowers and she con't with antalgic and step-to gait that is very slow PT-OP-J Posture/Palpation/Skin Start: 01/13/25 16:12 Freq: Status: Active Protocol: Document 01/14/25 13:00 MB (Rec: 01/14/25 13:36 MB Desktop) Posture Evaluation Comments Posture Comments Given possible L1 fracture, did not push lumbar ROM in standing or leg ROM in sitting . Standing posture in bare feet: Pt is afraid that right leg will give way and she holds onto chair on the left. Forward posture with rounded shoulders, left shoulder is higher than the left and more protracted at scapula. Forward head posture and flattened cervical spine, flattened thoracic kyphosis and lumbar lordosis and pt with right convexity in spine, flexed posture at hips and right iliac crest is higher than the left but then pt changes stance and this levels out, favoring right leg that is mildly in front, right knee slightly flexed in standing. PT-OP-M Strength Start: 01/13/25 16:12 Freq: Status: Active Protocol: Document 01/14/25 13:00 MB (Rec: 01/14/25 13:36 MB Desktop) Hip Strength Hip Manual Muscle Testing Left Flexion (L2) 4- Good- Abduction 4 Good Right Flexion (L2) 3+ Fair+ Abduction 3+ Fair+ Comments All MMT in supine with opposite leg straight Knee Strength Knee Manual Muscle Testing Left Flexion (S2) 4+ Good+ Extension (L3) 5 Normal Right Flexion (S2) 4+ Good+ Extension (L3) 4+ Good+ Ankle/Foot Strength Ankle and Foot Manual Muscle Testing Left Dorsiflexion (L4) 5 Normal Right Dorsiflexion (L4) 5 Normal Toe Strength Toe Manual Muscle Testing Left Great Toe Extension 4+ Good+ Right Great Toe Extension 4+ Good+ PT-OP-Q Treatments Start: 01/13/25 16:12 Freq: Status: Active Protocol: Document 02/11/25 15:20 MB (Rec: 02/11/25 16:15 MB Desktop) Gait Training Gait Activity 4WRW Comments Ed pt on benefits of using 4WRW to improve posture with gait to decrease pressure on lumbar spine and improve gait distance, gait speed and stepping and ed pt on locking and unlocking rollator, how to set at best height and when to use and how to stand up and sit down on it safely, pt gait trains 75 feet with rollator, verbalizes understanding of use Self-Care/Home Management Treatment Education Patient Education Body Mechanics,Fall Risk,Joint Protection,Pain Management, Posture,Safety Other Education Pt has already reviewed lumbar MRI results with Dr. Norwood and so showed her on the spine model where her changes are, discussed recommendations of referral to scourer for assessment for TLSO, referral to spinal surgeon, benefits of gait with 4WRW and ongoing con't exercises that do not cause pain, pt is agreeable, provided handout about how heavy is your head and measured her distance from back of cranium to wall which is almost 3 and discussed posture and decreasing pressure through lumbar spine with working on posture with awareness and rollator. PT-OP-T Assessment and Plan Start: 01/13/25 16:12 Freq: Status: Active Protocol: Document 02/11/25 15:20 MB (Rec: 02/11/25 16:15 MB Desktop) Physical Therapy Assessment Assessment Summary Assessment MRI 02/04/25: IMPRESSION: 1. Moderate burst fracture of L1 vertebral body. 2. 2 mm T2 hypointense lesion along the cauda equina nerve root at the level of L1-2, incompletely evaluated. Recommend further evaluation with lumbar spine with intravenous contrast. 3. Multilevel degenerative changes of the lumbar spine, most pronounced at L2-3, where there is central canal stenosis and moderate bilateral neural foraminal stenosis. Extensive education, gait training with rollator, recommendations provided to pt today and spoke with Dr. Norwood. Recommend order for scourer: assessment and provision of best brace for L1 burst fracture such as TLSO or as scourer deems appropriate and referral to spinal surgeon. Will d/c acute PT.
== END 2025-02-13 13:43 | disposition home or self-care (01) ==
LOC: PHYS 15:15
PROVIDERS: Family Provider Family Medicine; PCP Family Medicine; Referring Provider Family Medicine; Visit Provider Family Medicine
DX: M25.551 Pain in right hip (principal); M54.41 Lumbago with sciatica, right side
CPT/HCPCS: 97110; 97112; 97116; 97140; 97162; 97535

== ENCOUNTER → 2025-02-18 15:40 | Outpatient (CLI) | payer MEDICARE, OTHER, SELFPAY ==
[2022-06-07 15:10] VITALS: BMI 24.7
--- NOTE | 2025-02-18 15:44 | DI.MRI.S_ITS ---
PROCEDURE: MR LUMBAR SPINE W CON INDICATIONS: SPINAL CORD LESION TECHNIQUE: Noncontrast images were recently performed and not repeated. Precontrast axial T1 weighted images were performed as well as postcontrast fat degenerated T1 weighted images in the sagittal and axial planes. COMPARISON: [facility], MR, MR LUMBAR SPINE WO CON, 02/04/2025, 11:17. FINDINGS: Image quality: Excellent. Alignment and curvature: [id number] dextroconvex scoliosis can be seen on mender knit goods images. Mild retrolisthesis can be seen at L1-L2 and at L2-L3. Minimal anterolisthesis is seen at L5-S1. Marrow: Marrow is of normal overall signal. No acute vertebral body compression fractures. No suspicious marrow enhancement. Spinal cord: In this patient with this given history, scrutiny is given to the previously seen nodule at the L1-L2 level, just distal to the conus medullaris. On the current study, no enhancing nodule or abnormal enhancement can be seen at this site. No abnormal enhancement can be seen elsewhere. Conus medullaris terminates at the L1 level. Visualized spinal cord demonstrates normal signal, without suspicious enhancement. Paraspinous soft tissues: No paravertebral masses or abnormal enhancement. A nonenhancing right ovarian cyst is seen. Significant underlying degenerative changes are seen, as before. IMPRESSION: No abnormal enhancement can be seen at the site of the previously seen nodule just distal to the conus medullaris at L1-L2. No masses or abnormal enhancement can be seen elsewhere. Dictated by: Sanchez Virgen M.D. on 02/19/2025 at 16:23 Approved by: Sanchez Virgen M.D. on 02/19/2025 at 16:26
== END ==
PROVIDERS: Family Provider Family Medicine; PCP Family Medicine; Referring Provider Family Medicine; Visit Provider Family Medicine
DX: G95.89 Other specified diseases of spinal cord (principal)
CPT/HCPCS: 72149; A9579

== ENCOUNTER → 2025-03-11 14:55 | Outpatient (CLI) | payer MEDICARE, OTHER, SELFPAY ==
[2022-06-07 15:10] VITALS: BMI 24.7
--- NOTE | 2025-03-11 14:59 | DI.RAD.S_ITS ---
PROCEDURE: XR LUMBAR SPINE 2-3V INDICATIONS: BACK PAIN TECHNIQUE: 3 views of the lumbar spine were acquired. COMPARISON: None. FINDINGS: Lumbar spine curvature and alignment: Mild rightward curve lower thoracic and lumbar spine appreciated. Bones: Moderate L1 compression fracture indeterminate chronicity. Disc spaces: Severe L1-2 and L2-3 degenerative disc disease noted. There is moderate degenerative disc disease remaining lumbar spine . moderate L4-5 and severe L5- S1 degenerative facet disease Soft tissues: 3 cm calcification in the lower central pelvis may represent a calcified uterine fibroid or calcified granuloma IMPRESSION: Degeneration. Moderate L1 compression fracture -age indeterminate Severe right hip degeneration Dictated by: Baljinder Rosales M.D. on 03/12/2025 at 12:58 Approved by: Baljinder Rosales M.D. on 03/12/2025 at 13:00
== END ==
PROVIDERS: Family Provider Family Medicine; PCP Family Medicine; Referring Provider Neurological Surgery; Visit Provider Neurological Surgery
DX: M51.360 Other intervertebral disc degeneration, lumbar region with discogenic back pain only (principal); M47.816 Spondylosis without myelopathy or radiculopathy, lumbar region; M47.817 Spondylosis without myelopathy or radiculopathy, lumbosacral region; M48.56XA Collapsed vertebra, not elsewhere classified, lumbar region, initial encounter for fracture; M16.11 Unilateral primary osteoarthritis, right hip
CPT/HCPCS: 72100

== ENCOUNTER → 2025-07-17 16:20 | Outpatient (CLI) | payer MEDICARE, OTHER, SELFPAY ==
[2022-06-07 15:10] VITALS: BMI 24.7
--- NOTE | 2025-07-17 16:21 | DI.MG.S_ITS ---
MM screening mammo BI: 07/17/2025. BI-RADS: 2 CLINICAL: 79-year old female for bilateral screening mammogram. Tyrer-Cuzick lifetime risk of 3.5%. No personal or first-degree family history of breast cancer. Current reported family history of breast cancer: maternal aunt's daughter. The patient had prior bilateral breast biopsies. PRIOR EXAMS 07/07/2024, 07/04/2023, 06/19/2023, 04/03/2022. MAMMOGRAPHY TECHNIQUE: 2D and 3D (tomosynthesis) digital mammographic views obtained, with additional images as needed for full coverage. Current study was also evaluated with a Computer Aided Detection (CAD) system. DENSITY C. The breasts are heterogeneously dense, which may obscure small masses. MAMMOGRAPHY FINDINGS Right: No suspicious mass, asymmetry, microcalcification, or other abnormality seen. Left: Benign-appearing post-surgical changes noted on the left. There are no suspicious masses, calcifications, or other findings in the breast. IMPRESSION: Right * No evidence of malignancy. Left * No evidence of malignancy with benign findings. RECOMMENDATIONS Bilateral * Annual screening mammography. OVERALL ASSESSMENT CATEGORY BI-RADS-2: Benign. The [employer] recommends annual screening mammography beginning at age 40 for women with average risk of breast cancer. ELECTRONICALLY SIGNED: Ester Spear M.D. on 07/20/2025 at 05:00:53 PM PT Interpreting Station ID: [id number]
== END ==
LOC: MAMMO 16:21
PROVIDERS: Family Provider Family Medicine; PCP Family Medicine; Referring Provider Family Medicine; Visit Provider Family Medicine
DX: Z12.31 Encounter for screening mammogram for malignant neoplasm of breast (principal); R92.333 Mammographic heterogeneous density, bilateral breasts; Z80.3 Family history of malignant neoplasm of breast
CPT/HCPCS: 77063; 77067

== ENCOUNTER 2025-09-30 13:00 | Outpatient (RCR) | payer MEDICARE, OTHER, SELFPAY ==
[2022-06-07 15:10] VITALS: BMI 24.7
--- NOTE | 2025-08-13 17:58 | PT.OPPOC ---
Physical, Occupational & Speech Therapy At [facility] Current Diagnoses Radiculopathy, cervical region (08/13/25) Abnormal posture (08/13/25) Weakness (08/13/25) Visit Care Team Role Provider Type Alexys Norwood MD Attending Provider Physician Family Provider Primary Care Provider Referring Provider Specialty: Family Practice Address: [facility] [place], [facility] Email: [email or web address] Plan Of Care PT OP: Cervical/Upper Extremity Start: 08/13/25 14:01 Freq: Status: Active Protocol: Document 08/13/25 14:36 [facility] (Rec: 08/13/25 16:15 [facility] [id number]) Out-Patient Physical Therapy Visit Information Visit Information Visit Type Initial Evaluation Visit Start Time 14:35 Visit Stop Time 15:18 Visit Number 1 Number of PAIN MANAGEMENT SPECIALIST Visits 0 Progress Note Due 09/12/25 Precautions Precautions osteoporosis Current Condition History of Current Condition Onset Date Jun Current Complaints L neck pain History of Current Pain started randomly in Jun and goes along L neck Condition into L superior scap. At her worst, it went into her arm and had numb fingertips. Still aches post arm. She has better ROM to R but Looking to L causes the pain. Can't look far enough for driving. back pain also and that limits her ability upright also. R leg collapses on her sometimes d/t back R hip. Tries to walk 2x/week. Doesn't feel like she can do anything at the gym w/o hurting self. Went until January when couldn't do elliptical. Back is a little better. Since the last couple of weeks, feels like she is going to fall backwards. Hasn't fallen but it is scary. Had a dizzy spell about 1month ago and went and lied down. had vertigo in Oct and was treated by PT and Meclizine. Sometimes has trouble sleeping d/t neck, back or knee pain. Just had covid shot in R arm yesterday. R handed. Hx of headaches when working but not recently. Aggravating factors: lifting things, vacuuming, turn L , washing dishes 10 min (thoracic pain at bra line) relief: pull arms behind back to stretch Treatment Goals Patient/Caregiver Turn L more w/neck, return to gym Goals Patient Questionnaires Neck Disability Index NDI Score 32% Posture Evaluation Comments Posture Comments inc kyphosis, fwd head and flex neck, SB R Cervical Spine Range of Motion Cervical Spine Active Degrees Flexion 44 Extension 28 Rotation Left 32 Rotation Right 70 Lateral Flexion Left 9 Lateral Flexion 19 Right Special Tests Cervical Spine Special Tests Vertebral Artery Test Results neg positional testing, WNL auscultation heart and carotid Tectoral membrane Test Results neg Transverse Ligament Test Results neg Alar Ligament Test Results neg Shoulder Strength Shoulder Manual Muscle Testing Right Flexion 3+ Fair+ Extension 5 Normal Abduction (C5) 4- Good- External Rotation 4 Good Internal Rotation 4+ Good+ Left Flexion 4- Good- Extension 4- Good- Abduction (C5) 4- Good- External Rotation 4 Good Internal Rotation 4+ Good+ Comments pain flex and abd Elbow/Forearm Strength Elbow and Forearm Manual Muscle Testing Right Flexion (C6) 5 Normal Extension (C7) 5 Normal Left Flexion (C6) 4 Good Extension (C7) 4+ Good+ Therapeutic Exercises Sidelying Exercises open book Side bilateral Reps/Minutes 10 Comments cues thoracic rotation Sitting Exercises 1st rib mob Side left Reps/Minutes 10 Standing Exercises wall posture Standing Exercise roll up Name Reps/Minutes 8x Comments roll up/down w/o hold, cues comfortable range Self-Care/Home Management Treatment Education Other Education 15 min: edu on importance of thoracic posture for neck position, edu re: elevation of 1st rib L causing some of her pain, edu re: posture w/SB to R. edu findings of eval w/significantly inc tension to neck Physical Therapy Assessment Rehab Potential Rehabilitation Good Potential Evaluation Complexity Number of Personal 3 or More Factors/ Comorbidities Number of Body 4 or More Systems Impaired Clinical Evolving Presentation at Evaluation Impairments Impairments Activity Tolerance,Functional Activities,Functional Mobility,Pain,Posture,ROM,Soft Tissue Mobility,Strength Goals activity Assisted Goal (LTG) Pt will return to working out at gym w/o inc neck pain. LTG Duration 2/2 ROM Client Portfolio Manager Goal (LTG) Pt will have at least 70 deg L cervical rotation and at least 50 deg flex and ext of neck w/o inc pain to allow for greater ease with driving and ADLs. LTG Duration 2/1 strength Short Term Goal (STG Pt will demonstrate independence w/HEP by being able to ) perform with no more than min cues. STG Duration 09/21 Client Portfolio Manager Goal (LTG) Pt will score at least 4+/5 on all B shoulder and elbow MMT and at least 3/5 EFT to show improved strength to allow pt to return to gym and ADLs w/o inc pain LTG Duration 11/08 NDI Impairment 32% Short Term Goal (STG Pt will improve NDI score to no greater than 24% to ) show improved functional ability. STG Duration 09/21 Assisted Goal (LTG) Pt will improve NDI score to no greater than 4% to show improved functional ability. LTG Duration 2 Assessment Summary Assessment Pt presents w/L sided neck pain that radiates into UE and thoracic pain that is made worse by her significant kyphosis causing fwd head and flexed neck that she notes started earlier this year. She does have hx of LBP also reporting L1 compression fx without surgical intervention and R hip pain. She does typically work out and had to stop earlier this year d/t LBP and now w /neck and L UE pain. She has significant L>R UE weakness that is related to her pain and ability to lift things in daily life. Pt would benefit from skilled PT to return to active lifestyle, improve neck and thoracic ROM, and improve UE and trunk strength. Physical Therapy Plan Frequency and Duration Frequency of 2x/Week Treatment Duration of 12 treatment (weeks) Plan of Care Start 08/13/25 Date Plan of Care End 11/11/25 Date Therapeutic Interventions Therapeutic Canalithic Repositioning,Home Exercise Program,Joint Interventions Mobilizations,Manual Therapy,Neuromuscular Re-education ,Patient/Caregiver Education,Self-Care/Home Management, Soft Tissue Mobilization,Taping,Therapeutic Activities, Therapeutic Exercises,Vestibular Rehabilitation Modalities Cold Pack/Ice Massage,Electric Stimulation,Hot Packs, Infrared Therapy,Ultrasound Next Visit Focus/Plan Next Note Type Treatment Note Plan of Care Dates Plan of Care Start Date 08/13/25 Plan of Care End Date 11/11/25 Electronically Signed by: Anna Ruby, PT 08/13/25 [id number] If you are in agreement with this Plan of Care, please return a signed and dated copy. I have reviewed this Plan of Care and certify that the skilled therapy services above are required to meet the patient?s needs. Physician Signature Date Printed Name and Credentials Clinical Instructor Signature Printed Name and Credentials
--- NOTE | 2025-08-20 09:03 | PT.OTN ---
Current Diagnoses Radiculopathy, cervical region (08/20/25) Abnormal posture (08/20/25) Weakness (08/20/25) Physical Therapy Treatment Note PT OP: Cervical/Upper Extremity Start: 08/13/25 14:01 Freq: Status: Active Protocol: Document 08/20/25 08:19 SP (Rec: 08/20/25 09:07 SP [id number]) Out-Patient Physical Therapy Visit Information Visit Information Visit Type Treatment Note Visit Start Time 08:19 Visit Stop Time 09:03 Visit Number 2 Number of DATA CAPTURE SPECIALIST Visits 1 Progress Note Due 09/12/25 Precautions Precautions osteoporosis OP-PT Subjective Patient Comments Patient Comments Pt report compliant with HEP, wants to revisit wall posture if doing correctly. Therapeutic Exercises Sidelying Exercises open book Side bilateral Resistance AROM Reps/Minutes 10 Comments cues segmental mobility GH, Scapthoracic, thoracic rot slower fluid mv't Sitting Exercises 1st rib mob Sitting Exercise self mobility towel over shld/1st rib Name Side left Reps/Minutes 10 Comments R SB Standing Exercises Resisted Shld Ext Standing Exercise added to HEP with HO Name Side bilateral Resistance Tbv #2 orange Equipment Used dowel behind head/shld/pelvis assist alignment Reps/Minutes 2 SH x10 Comments cued head up/retracted with shld alignment wall posture Standing Exercise spine roll up wall, humeral ER, CS retraction Name Reps/Minutes 3-5 sec hold x10 Comments roll up/down, incorporated gentle hold, cues comfortable range and breath Manual Therapy Treatment Consent Patient gave verbal Yes consent for manual treatment Soft Tissue Mobilization neck Body Location L>R: UT, LS, SCM, SOR Comments gentle rolling STMs, education self SCM and mindfulness allowing head on head rest driving for spinal alignment and not over stress posterior chain Self-Care/Home Management Treatment Education Patient Education Body Mechanics,Fall Risk,Joint Protection,Pain Management,Posture,Safety Other Education Education on use pillows for supine and SL sleeping, pillow under top arm and behind back SL and potential between knees, under thighs supine for neck/UE and spinal support comfort- good response during tx pillow under her arm. ALso mindfulness allowing head on head rest driving for spinal alignment and not over stress posterior chain, seate adjustment as needed for comfort . Physical Therapy Assessment Goals activity Senior Care Goal (LTG) Pt will return to working out at gym w/o inc neck pain. LTG Duration 2/2 ROM Finishing Lab Technician Goal (LTG) Pt will have at least 70 deg L cervical rotation and at least 50 deg flex and ext of neck w/o inc pain to allow for greater ease with driving and ADLs. LTG Duration 2 strength Short Term Goal (STG Pt will demonstrate independence w/HEP by being able to ) perform with no more than min cues. STG Duration 09/21 Finishing Lab Technician Goal (LTG) Pt will score at least 4+/5 on all B shoulder and elbow MMT and at least 3/5 EFT to show improved strength to allow pt to return to gym and ADLs w/o inc pain LTG Duration 2 NDI Impairment 32% Short Term Goal (STG Pt will improve NDI score to no greater than 24% to ) show improved functional ability. STG Duration 09/21 Senior Care Goal (LTG) Pt will improve NDI score to no greater than 4% to show improved functional ability. LTG Duration 2 Assessment Summary Assessment Pt improved postural alignment with cues durign ther ex . Good response to manual today, improved AROM more to R. Instructed to hold wall posture now but gentle motion cues for proper head alignment gentle CS retraction ease not forceful. Added resisted shld ext for reinforcement of postural alignment with cues and good gentle effort response. Physical Therapy Plan Frequency and Duration Frequency of 2x/Week Treatment Duration of 12 treatment (weeks) Plan of Care Start 08/13/25 Date Plan of Care End 11/11/25 Date Therapeutic Interventions Therapeutic Canalithic Repositioning,Home Exercise Program,Joint Interventions Mobilizations,Manual Therapy,Neuromuscular Re-education ,Patient/Caregiver Education,Self-Care/Home Management, Soft Tissue Mobilization,Taping,Therapeutic Activities, Therapeutic Exercises,Vestibular Rehabilitation Modalities Cold Pack/Ice Massage,Electric Stimulation,Hot Packs, Infrared Therapy,Ultrasound Next Visit Focus/Plan Next Note Type Treatment Note Next Visit Plan recheck HEP, added resisted ext add thread needle, resisted CS ext
--- NOTE | 2025-08-24 15:14 | PT.OTN ---
Current Diagnoses Radiculopathy, cervical region (08/24/25) Abnormal posture (08/24/25) Weakness (08/24/25) Physical Therapy Treatment Note PT OP: Cervical/Upper Extremity Start: 08/13/25 14:01 Freq: Status: Active Protocol: Document 08/24/25 13:51 [facility] (Rec: 08/24/25 14:36 [facility] [id number]) Out-Patient Physical Therapy Visit Information Visit Information Visit Type Treatment Note Visit Start Time 13:52 Visit Stop Time 14:32 Visit Number 3 Number of MEDICAL PHYSICS PROFESSOR Visits 0 Progress Note Due 09/12/25 Precautions Precautions osteoporosis OP-PT Subjective Patient Comments Patient Comments Pt reports was having more aching the past 2 night in arm and fingers. Had to take tylenol and ibuprofen at night. Therapeutic Exercises Sidelying Exercises open book Side bilateral Resistance AROM Reps/Minutes 8 Comments cues full tspine motion Standing Exercises pec stretch Standing Exercise 90/90 doorway Name Side bilateral Reps/Minutes 30 sec Comments cues set up Resisted Shld Ext Standing Exercise added to HEP with HO Name Side bilateral Resistance Tbv #2 orange Reps/Minutes 2 SH x15 Comments cues scap retract & control wall posture Standing Exercise spine roll up wall, humeral ER/ext, CS retraction Name Reps/Minutes 5 sec hold x10 Comments tolerated hold well Manual Therapy Treatment Consent Patient gave verbal Yes consent for manual treatment Soft Tissue Mobilization thoracic Body Location L rhomboids, lats Comments rolling & cupping neck Body Location L UT, LS, SCM, scalenes Mobilization Type Rolling Comments w/gentle rotation cupping to LS Joint Mobilizations thoracic Comments transverse R T 1-3 c/r rot transverse R T5-7 c/r rot PA T1-3 seated c/r Physical Therapy Assessment Goals activity Prison Goal (LTG) Pt will return to working out at gym w/o inc neck pain. LTG Duration 2/2 ROM Director Retail Brand Development Goal (LTG) Pt will have at least 70 deg L cervical rotation and at least 50 deg flex and ext of neck w/o inc pain to allow for greater ease with driving and ADLs. LTG Duration 2/1 strength Short Term Goal (STG Pt will demonstrate independence w/HEP by being able to ) perform with no more than min cues. STG Duration 12 Prison Goal (LTG) Pt will score at least 4+/5 on all B shoulder and elbow MMT and at least 3/5 EFT to show improved strength to allow pt to return to gym and ADLs w/o inc pain LTG Duration 2 NDI Impairment 32% Short Term Goal (STG Pt will improve NDI score to no greater than 24% to ) show improved functional ability. STG Duration 09/21 Director Retail Brand Development Goal (LTG) Pt will improve NDI score to no greater than 4% to show improved functional ability. LTG Duration 2 Assessment Summary Assessment pt had improved L rotation after manual and improved L scap depression. MIn cues needed w/exercises today Physical Therapy Plan Frequency and Duration Frequency of 2x/Week Treatment Duration of 12 treatment (weeks) Plan of Care Start 08/13/25 Date Plan of Care End 11/11/25 Date Therapeutic Interventions Therapeutic Canalithic Repositioning,Home Exercise Program,Joint Interventions Mobilizations,Manual Therapy,Neuromuscular Re-education ,Patient/Caregiver Education,Self-Care/Home Management, Soft Tissue Mobilization,Taping,Therapeutic Activities, Therapeutic Exercises,Vestibular Rehabilitation Modalities Cold Pack/Ice Massage,Electric Stimulation,Hot Packs, Infrared Therapy,Ultrasound Next Visit Focus/Plan Next Note Type Treatment Note Next Visit Plan recheck HEP, added resisted ext add thread needle, resisted CS ext
--- NOTE | 2025-08-27 13:52 | PT.OTN ---
Current Diagnoses Radiculopathy, cervical region (08/31/25) Abnormal posture (08/31/25) Weakness (08/31/25) Physical Therapy Treatment Note PT OP: Cervical/Upper Extremity Start: 08/13/25 14:01 Freq: Status: Active Protocol: Document 08/27/25 12:59 [facility] (Rec: 08/27/25 13:55 [facility] [id number]) Out-Patient Physical Therapy Visit Information Visit Information Visit Type Treatment Note Visit Start Time 13:02 Visit Stop Time 13:52 Visit Number 4 Number of TEST GRADER Visits 1 Progress Note Due 09/12/25 Precautions Precautions osteoporosis OP-PT Subjective Patient Comments Patient Comments Pt reports her neck is feeling better only occasional ache but her L shld UT to scap and down arm laterally hurts more lately. When puts L arm behind her back give relief. Therapeutic Exercises Sidelying Exercises Shld ABD Side left Resistance AROM> 1# DB Reps/Minutes 10 each open book Side bilateral Resistance AROM, 1# DB Reps/Minutes 10 each Comments cues full tspine motion Sitting Exercises Shoulder ER Band Sitting Exercise added to HEP with HO Name Side bilateral Resistance TB#1 between BUEs Reps/Minutes 2 sec hold x10 Comments cue upright posture scap retraction/depression against CS Retraction & Rotation Sitting Exercise added to HEP with HO Name Side bilateral Resistance TB #1 behind head Reps/Minutes 1. 3 sec hold x10 2. Retraction then rotation R & L 10 reps Comments hands hold band up front Standing Exercises Resisted Shld Ext Side bilateral Resistance Tbv #2 orange Reps/Minutes 2 SH x15 Comments cues scap retract & control Other Exercises THeracane Other Exercise Name neck & scap Side right Reps/Minutes 2 min total Comments MWM head nods/turns, scap mobility Manual Therapy Treatment Consent Patient gave verbal Yes consent for manual treatment Soft Tissue Mobilization thoracic Body Location L rhomboids, lats Comments rolling & cupping neck Body Location L UT, LS, SCM, scalenes Mobilization Type Rolling Comments w/gentle rotation cupping to LS Joint Mobilizations L scapulthoracic Jt Direction retraction/depression Physical Therapy Assessment Goals activity Office Machine Servicer Apprentice Goal (LTG) Pt will return to working out at gym w/o inc neck pain. LTG Duration 2/2 ROM Office Machine Servicer Apprentice Goal (LTG) Pt will have at least 70 deg L cervical rotation and at least 50 deg flex and ext of neck w/o inc pain to allow for greater ease with driving and ADLs. LTG Duration 2 strength Short Term Goal (STG Pt will demonstrate independence w/HEP by being able to ) perform with no more than min cues. STG Duration 09/21 Office Machine Servicer Apprentice Goal (LTG) Pt will score at least 4+/5 on all B shoulder and elbow MMT and at least 3/5 EFT to show improved strength to allow pt to return to gym and ADLs w/o inc pain LTG Duration 2 NDI Impairment 32% Short Term Goal (STG Pt will improve NDI score to no greater than 24% to ) show improved functional ability. STG Duration 09/21 Retirement Goal (LTG) Pt will improve NDI score to no greater than 4% to show improved functional ability. LTG Duration 2 Assessment Summary Assessment Pt reports decreased tightness post manual. She have good feedback to increased resistance to ther ex with reports ok when moves in painfree range and no increased pain with increased resistance, cues for scapular mobility and can turn head with open book end range when TS rotation. Provided HO for new HEP today. Physical Therapy Plan Frequency and Duration Frequency of 2x/Week Treatment Duration of 12 treatment (weeks) Plan of Care Start 08/13/25 Date Plan of Care End 11/11/25 Date Therapeutic Interventions Therapeutic Canalithic Repositioning,Home Exercise Program,Joint Interventions Mobilizations,Manual Therapy,Neuromuscular Re-education ,Patient/Caregiver Education,Self-Care/Home Management, Soft Tissue Mobilization,Taping,Therapeutic Activities, Therapeutic Exercises,Vestibular Rehabilitation Modalities Cold Pack/Ice Massage,Electric Stimulation,Hot Packs, Infrared Therapy,Ultrasound Next Visit Focus/Plan Next Note Type Treatment Note Next Visit Plan recheck HEP, added resisted ext add thread needle, resisted CS ext
--- NOTE | 2025-08-31 14:34 | PT.OTN ---
Current Diagnoses Radiculopathy, cervical region (08/31/25) Abnormal posture (08/31/25) Weakness (08/31/25) Physical Therapy Treatment Note PT OP: Cervical/Upper Extremity Start: 08/13/25 14:01 Freq: Status: Active Protocol: Document 08/31/25 13:52 [facility] (Rec: 08/31/25 14:35 [facility] [id number]) Out-Patient Physical Therapy Visit Information Visit Information Visit Type Treatment Note Visit Start Time 13:52 Visit Stop Time 14:34 Visit Number 5 Number of SCAFFOLD BUILDER Visits 1 Progress Note Due 09/12/25 Precautions Precautions osteoporosis OP-PT Subjective Patient Comments Patient Comments Pt reports thinks the new exercises are helping, less pain reports. Every now and then gets twinges but not the constant pain. She even said her friend noticed when plays cards she isn't rubbing her L shld as much. Therapeutic Exercises Supine Exercises Shoulder Series Supine Exercise Name 1. chest press 2. Serratus Press 3. FF over head Resistance 1 -2. 1# DB, 3. 1#DB Equipment Used hooklying Reps/Minutes 10 reps each Sidelying Exercises Shld ABD Side left Resistance 1# DB Reps/Minutes 10 each open book Side bilateral Resistance 1# DB Reps/Minutes 10 each Comments cues full tspine motion Sitting Exercises Shoulder ER Band Side bilateral Resistance TB#1 between BUEs Standing Exercises FF & Abduction Band Standing Exercise trialed in PT Name Side bilateral Resistance Tb #3 teal Equipment Used front of mirror Reps/Minutes 10 reps each side Comments cued pec stretch Standing Exercise 90/90 doorway Name Side bilateral Reps/Minutes 30 sec Comments good form Resisted Shld Ext Standing Exercise added: head turns and isometric hold 2nd set Name Side bilateral Resistance Tbv #2 teal green (home) Equipment Used dowel behind back for head retracted alignment awareness correction, occ Reps/Minutes 2 head turns with isometric hold x10 reps Comments cued elongated posture, CS retractions back neutral, retract & control rot. Manual Therapy Treatment Consent Patient gave verbal Yes consent for manual treatment Soft Tissue Mobilization thoracic Body Location L Rhomboids, lats Body Position R SL Comments rolling neck Body Location L UT, LS Mobilization Type Rolling Body Position R SL Comments w/gentle rotation Joint Mobilizations L scapulthoracic Jt Direction retraction/depression Physical Therapy Assessment Goals activity Stock Patcher Goal (LTG) Pt will return to working out at gym w/o inc neck pain. LTG Duration 2/2 ROM Group Home Goal (LTG) Pt will have at least 70 deg L cervical rotation and at least 50 deg flex and ext of neck w/o inc pain to allow for greater ease with driving and ADLs. LTG Duration 2 strength Short Term Goal (STG Pt will demonstrate independence w/HEP by being able to ) perform with no more than min cues. STG Duration 09/21 Group Home Goal (LTG) Pt will score at least 4+/5 on all B shoulder and elbow MMT and at least 3/5 EFT to show improved strength to allow pt to return to gym and ADLs w/o inc pain LTG Duration 2 NDI Impairment 32% Short Term Goal (STG Pt will improve NDI score to no greater than 24% to ) show improved functional ability. STG Duration 09/21 Stock Patcher Goal (LTG) Pt will improve NDI score to no greater than 4% to show improved functional ability. LTG Duration 2 Assessment Summary Assessment Pt good response to manual, cues for scapular set alignment with slow controlled pacing during ther ex, no pain but muscle tiring with increased resistance today. Incorporated resisted shld ext with head turns and FF and ABD band standing ther ex infront of mirror for progress functional strengthening to support getting item up and down from high shelf over head. She states muscles tired end tx neck doesn't feel to bad . Physical Therapy Plan Frequency and Duration Frequency of 2x/Week Treatment Duration of 12 treatment (weeks) Plan of Care Start 08/13/25 Date Plan of Care End 11/11/25 Date Therapeutic Interventions Therapeutic Canalithic Repositioning,Home Exercise Program,Joint Interventions Mobilizations,Manual Therapy,Neuromuscular Re-education ,Patient/Caregiver Education,Self-Care/Home Management, Soft Tissue Mobilization,Taping,Therapeutic Activities, Therapeutic Exercises,Vestibular Rehabilitation Modalities Cold Pack/Ice Massage,Electric Stimulation,Hot Packs, Infrared Therapy,Ultrasound Next Visit Focus/Plan Next Note Type Treatment Note Next Visit Plan recheck HEP, progressed resisted ext and ask how resisted standing FF & ABD felt later day. Next : add thread needle
--- NOTE | 2025-09-02 13:50 | PT.OTN ---
Current Diagnoses Radiculopathy, cervical region (09/02/25) Abnormal posture (09/02/25) Weakness (09/02/25) Physical Therapy Treatment Note PT OP: Cervical/Upper Extremity Start: 08/13/25 14:01 Freq: Status: Active Protocol: Document 09/02/25 13:05 [facility] (Rec: 09/02/25 13:50 SP [id number]) Out-Patient Physical Therapy Visit Information Visit Information Visit Type Treatment Note Visit Start Time 13:05 Visit Stop Time 13:50 Visit Number 6 Number of YARN HAULER Visits 2 Progress Note Due 09/12/25 Precautions Precautions osteoporosis OP-PT Subjective Patient Comments Patient Comments Pt felt good after last tx, but was sore thinks from the new trialed laying down presses with weights, not sure ready for that? She reports arrives with just soreness distal UT at upper scap, down posterior arm is ok. Therapeutic Exercises Sidelying Exercises Shld ER Sidelying Exercise trialed in PT Name Side left Resistance DB #1, #2 Reps/Minutes 10 1# DB tiring, 6 reps 2# DB Shld ABD Side left Resistance 1# DB Reps/Minutes 10 open book Side bilateral Resistance 1# DB Reps/Minutes 10 Comments cues full tspine motion and slower scap retraction/ depression posteriorly Standing Exercises PLank Counter UE FF Standing Exercise trialed in PT Name Side bilateral Resistance AROM Reps/Minutes slight incline Comments *can't WB R knee due to pain, modified incline plank FF & Abduction Band Standing Exercise reviewed: FF & ABD 128 deg Name Side bilateral Resistance Tb # 2 teal anchored under same side foot Equipment Used facing wall, opp UE contact wall Reps/Minutes 12 reps each side Comments cued CS retraction neutral, scap pec stretch Standing Exercise 90/90 doorway Name Side bilateral Reps/Minutes 30 sec Comments good form Resisted Shld Ext Standing Exercise reviewed: head turns w/ isometric hold ext Name Side bilateral Resistance Tbv #2 teal green (home) Equipment Used good CS retraction neutral Reps/Minutes 2 head turns with isometric hold x10 reps Comments cued elongated posture, CS retractions back neutral, retract & control rot. Manual Therapy Treatment Consent Patient gave verbal Yes consent for manual treatment Soft Tissue Mobilization thoracic Body Location L Rhomboids, lats Body Position R SL Comments rolling neck Body Location L UT, LS Mobilization Type Rolling Body Position R SL Comments w/gentle rotation Joint Mobilizations L scapulthoracic Jt Direction retraction/depression Physical Therapy Assessment Goals activity Product Control And Logistics Analyst Goal (LTG) Pt will return to working out at gym w/o inc neck pain. LTG Duration 2/ ROM Product Control And Logistics Analyst Goal (LTG) Pt will have at least 70 deg L cervical rotation and at least 50 deg flex and ext of neck w/o inc pain to allow for greater ease with driving and ADLs. LTG Duration 2 strength Short Term Goal (STG Pt will demonstrate independence w/HEP by being able to ) perform with no more than min cues. STG Duration 09/21 Retirement Goal (LTG) Pt will score at least 4+/5 on all B shoulder and elbow MMT and at least 3/5 EFT to show improved strength to allow pt to return to gym and ADLs w/o inc pain LTG Duration 2 NDI Impairment 32% Short Term Goal (STG Pt will improve NDI score to no greater than 24% to ) show improved functional ability. STG Duration 09/21 Retirement Goal (LTG) Pt will improve NDI score to no greater than 4% to show improved functional ability. LTG Duration 2 Assessment Summary Assessment Pt responded well to manual and resisted therex. Today had her contact wall during resisted standing FF and ABD which provided improved cervical and scapular mobility to reach over head against resistance over head vs out in open front of mirror. Cues for slow speed and awareness of alignment during exercises to decrease LS and UT compensations. Physical Therapy Plan Frequency and Duration Frequency of 2x/Week Treatment Duration of 12 treatment (weeks) Plan of Care Start 08/13/25 Date Plan of Care End 11/11/25 Date Therapeutic Interventions Therapeutic Canalithic Repositioning,Home Exercise Program,Joint Interventions Mobilizations,Manual Therapy,Neuromuscular Re-education ,Patient/Caregiver Education,Self-Care/Home Management, Soft Tissue Mobilization,Taping,Therapeutic Activities, Therapeutic Exercises,Vestibular Rehabilitation Modalities Cold Pack/Ice Massage,Electric Stimulation,Hot Packs, Infrared Therapy,Ultrasound Next Visit Focus/Plan Next Note Type Treatment Note Next Visit Plan recheck HEP, progressed resisted standing FF & ABD near wall. Next : add thread needle and recheck FF incline off counter, can't kneel on R knee due to pain.
--- NOTE | 2025-09-11 11:33 | PT.OTN ---
Current Diagnoses Radiculopathy, cervical region (09/11/25) Abnormal posture (09/11/25) Weakness (09/11/25) Physical Therapy Treatment Note PT OP: Cervical/Upper Extremity Start: 08/13/25 14:01 Freq: Status: Active Protocol: Document 09/11/25 10:47 [facility] (Rec: 09/11/25 10:54 [facility] [id number]) Out-Patient Physical Therapy Visit Information Visit Information Visit Type Treatment Note Visit Start Time 10:47 Visit Stop Time 11:33 Visit Number 7 Number of CASINO CONTROLLER Visits 3 Progress Note Due 09/12/25 Precautions Precautions osteoporosis OP-PT Subjective Patient Comments Patient Comments Pt reports was stiff on L side of her neck during thansgiving when friend stood up next to her and she looked up to L to talk to her. Pt wants to know what can do at gym safely for strengthening. Gym Equipment Cable Column (Body Solid) Rows Details cued tall posture Resistance 2 plates Reps/Time x10 reps pull downs Details under hand vs over hand shoulder width, slight lean back ok Resistance 2 plates Reps/Time x10 reps Therapeutic Exercises Standing Exercises BIcep curls Standing Exercise trialed for gym program Name Side bilateral Resistance 5# DB Equipment Used front of mirror Reps/Minutes 15 reps UE Resisted Walking Standing Exercise trialed in PT Name Side bilateral Resistance TB #2 Equipment Used rail vs long arm plank on wall vs * forearms on wall Reps/Minutes 10 Comments Cued head up neutral: * best form and posterior tricep and ERs engagment FF & Abduction Band Standing Exercise reviewed: LUE FF 140 & ABD 152 deg Name Side bilateral Resistance Tb # 2 teal R #1 light blue L(anchored under same side foot) Equipment Used front of mirror Reps/Minutes 5 x2 reps each side x3 sets vs 10 reps 2#DB Comments cued slower pacing, no UT recruitment L when decreased TB #1 pec stretch Standing Exercise self clasps hands behind back for stretch and postural Name correction support Side bilateral Equipment Used door vs grab hands behind back Reps/Minutes 30sec Comments states most functional grabbing behind back Resisted Shld Ext Standing Exercise reviewed: head turns w/ isometric hold ext Name Side bilateral Resistance Tbv #2 teal green (home) Equipment Used good CS retraction neutral Reps/Minutes 2 head turns with isometric hold x10 reps Comments cued elongated posture, CS retractions back neutral, retract & control rot. Manual Therapy Treatment Consent Patient gave verbal Yes consent for manual treatment Soft Tissue Mobilization thoracic Body Location L Pec, Rhomboids, lat, supraspinatus Body Position R SL Comments rolling STMs with scapulothoracic neck Body Location L>R UT, LS Mobilization Type Rolling Body Position R SL Comments gentle manual STMs and ed use theracane home. Physical Therapy Assessment Goals activity Prison Goal (LTG) Pt will return to working out at gym w/o inc neck pain. LTG Duration 2/2 ROM Prison Goal (LTG) Pt will have at least 70 deg L cervical rotation and at least 50 deg flex and ext of neck w/o inc pain to allow for greater ease with driving and ADLs. LTG Duration 2/ strength Short Term Goal (STG Pt will demonstrate independence w/HEP by being able to ) perform with no more than min cues. STG Duration 12 Prison Goal (LTG) Pt will score at least 4+/5 on all B shoulder and elbow MMT and at least 3/5 EFT to show improved strength to allow pt to return to gym and ADLs w/o inc pain LTG Duration 2 NDI Impairment 32% Short Term Goal (STG Pt will improve NDI score to no greater than 24% to ) show improved functional ability. STG Duration 12 Sawmill Production Worker Goal (LTG) Pt will improve NDI score to no greater than 4% to show improved functional ability. LTG Duration 2 Assessment Summary Assessment Pt improved decreased R neck tightness post manual. Skilled instruction maintaining head and neck alignment periodically with all activities, tends to slouch fwd when gets up, as when CASINO CONTROLLER went up to get pt. Pt good response to continued resisted FF and ABD with DB vs TB at gym and good response to cable pull downs and rows for safe gym program to return to. Physical Therapy Plan Frequency and Duration Frequency of 2x/Week Treatment Duration of 12 treatment (weeks) Plan of Care Start 08/13/25 Date Plan of Care End 11/11/25 Date Therapeutic Interventions Therapeutic Canalithic Repositioning,Home Exercise Program,Joint Interventions Mobilizations,Manual Therapy,Neuromuscular Re-education ,Patient/Caregiver Education,Self-Care/Home Management, Soft Tissue Mobilization,Taping,Therapeutic Activities, Therapeutic Exercises,Vestibular Rehabilitation Modalities Cold Pack/Ice Massage,Electric Stimulation,Hot Packs, Infrared Therapy,Ultrasound Next Visit Focus/Plan Next Note Type Progress Note Next Visit Plan PN next tx, PT Anna to assist. Next trial on/off foam roller and pec stretch. recheck HEP, progressed resisted standing FF & ABD near wall. Next : add thread needle and recheck FF incline off counter, can't kneel on R knee due to pain.
--- NOTE | 2025-09-16 09:50 | PT.OTN ---
Current Diagnoses Radiculopathy, cervical region (09/16/25) Abnormal posture (09/16/25) Weakness (09/16/25) Physical Therapy Treatment Note PT OP: Cervical/Upper Extremity Start: 08/13/25 14:01 Freq: Status: Active Protocol: Document 09/16/25 09:01 SP (Rec: 09/16/25 09:53 SP [id number]) Out-Patient Physical Therapy Visit Information Visit Information Visit Type Treatment Note Visit Start Time 09:01 Visit Stop Time 09:50 Visit Number 8 Number of AGING BOX HAND Visits 4 Progress Note Due 09/12/25 Precautions Precautions osteoporosis OP-PT Subjective Patient Comments Patient Comments Pt reports just little tightness over L distal UT at AC jt region. Still rounded posture when initially gets up in waiting room. Ed stop postural upright extension then proceed walking with better posture. Gym Equipment Cable Column (Body Solid) Chops Resistance 1 plate Reps/Time cued mechanics Paloff Press Details cued mechanics Resistance 1plate Reps/Time 10 reps Rows Details cued tall posture, CS retraction back neutral Resistance 2 plates Reps/Time x10 reps pull downs Details under hand vs over hand shoulder width, CS retraction neutral Resistance 2 plates Reps/Time 10 reps each hand hold Therapeutic Exercises Sitting Exercises Shoulder ER Band Side bilateral Resistance TB#1 between BUEs Reps/Minutes 2x10 Comments cued CS retraction neutral CS Retraction & Rotation Sitting Exercise reviewed Name Side bilateral Resistance TB #1 behind head Reps/Minutes 1. 3 sec hold x10 2. Retraction then rotation R & L 10 reps Comments hands hold band up front Standing Exercises Wall Slides & Y of Wall Standing Exercise added to HEP with HO Name Resistance AROM x5, TB #1 x10 Comments cued CS retraction neutral BIcep curls Standing Exercise bicep curl, curl <> Over head press Name Side bilateral Resistance 5# DB Equipment Used front of mirror Reps/Minutes 2x 15 reps bicep curl, 5 reps press over head Comments cued upright head & press close to over head FF & Abduction Band Standing Exercise reviewed: LUE FF 140 & ABD 152 deg Name Side bilateral Resistance Tb # 2 teal R #1 light blue L(anchored under same side foot) Equipment Used front of mirror Reps/Minutes 10 reps each side Comments cued slower pacing, CS retraction neutral alignment end feel Resisted Shld Ext Standing Exercise reviewed: head turns w/ isometric hold ext Name Side bilateral Resistance Tbv #2 teal green (home) Equipment Used good CS retraction neutral Reps/Minutes 2 head turns with isometric hold 2x10 reps Comments cued elongated posture, CS retractions back neutral, retract & control rot. Self-Care/Home Management Treatment Education Patient Education Body Mechanics,Joint Protection,Pain Management,Posture ,Safety Other Education Ed stop when come to standing, postural upright extension stretch then proceed walking with better posture. Body Mechanics cable ther ex for safety gym. Physical Therapy Assessment Goals activity Meal Temperer Goal (LTG) Pt will return to working out at gym w/o inc neck pain. LTG Duration 2/ ROM Prison Goal (LTG) Pt will have at least 70 deg L cervical rotation and at least 50 deg flex and ext of neck w/o inc pain to allow for greater ease with driving and ADLs. LTG Duration 2/ strength Short Term Goal (STG Pt will demonstrate independence w/HEP by being able to ) perform with no more than min cues. STG Duration 12 Prison Goal (LTG) Pt will score at least 4+/5 on all B shoulder and elbow MMT and at least 3/5 EFT to show improved strength to allow pt to return to gym and ADLs w/o inc pain LTG Duration 2 NDI Impairment 32% Short Term Goal (STG Pt will improve NDI score to no greater than 24% to ) show improved functional ability. STG Duration 12 Prison Goal (LTG) Pt will improve NDI score to no greater than 4% to show improved functional ability. LTG Duration 2/ Assessment Summary Assessment Pt stating improving less pain experiencing, trying to incorporate postural awareness in her daily lift but does forget when intially gets up from sitting, good feedback response to ROM and resisted therex, cues for postural corrections as needed. Pt states feels good end tx and more upright leaving. Physical Therapy Plan Frequency and Duration Frequency of 2x/Week Treatment Duration of 12 treatment (weeks) Plan of Care Start 08/13/25 Date Plan of Care End 11/11/25 Date Therapeutic Interventions Therapeutic Canalithic Repositioning,Home Exercise Program,Joint Interventions Mobilizations,Manual Therapy,Neuromuscular Re-education ,Patient/Caregiver Education,Self-Care/Home Management, Soft Tissue Mobilization,Taping,Therapeutic Activities, Therapeutic Exercises,Vestibular Rehabilitation Modalities Cold Pack/Ice Massage,Electric Stimulation,Hot Packs, Infrared Therapy,Ultrasound Next Visit Focus/Plan Next Note Type Progress Note Next Visit Plan PN next tx. Recheck gym HEP PRN. Next trial on/off foam roller and pec stretch. incorporated standing uneven surfaces with posture. recheck HEP, progressed resisted standing FF & ABD near wall. Next : add thread needle and recheck FF incline off counter, can't kneel on R knee due to pain.
--- NOTE | 2025-09-30 14:58 | PT.OPDS ---
Current Diagnoses Radiculopathy, cervical region (09/30/25) Abnormal posture (09/30/25) Weakness (09/30/25) Visit Care Team Role Provider Type Alexys Norwood MD Attending Provider Physician Family Provider Primary Care Provider Referring Provider Specialty: Family Practice Address: [place], [address] Email: [email or web address] Visit Number Visit Number 9 Discharge Summary PT OP: Cervical/Upper Extremity Start: 08/13/25 14:01 Freq: Status: Active Protocol: Document 09/30/25 13:02 [facility] (Rec: 09/30/25 14:58 [facility] [id number]) Out-Patient Physical Therapy Visit Information Visit Information Visit Type Progress Note Visit Start Time 13:05 Visit Stop Time 13:45 Visit Number 9 Number of STUNT DOUBLE Visits 0 Progress Note Due 10/30/25 Precautions Precautions osteoporosis OP-PT Subjective Patient Comments Patient Comments has not returned the gym but hasn't had pain Posture Evaluation Veronica Postural Classification System Elbow Flexion Test 3 Cervical Spine Range of Motion Cervical Spine Active Degrees Flexion 60 Extension 52 Rotation Left 60 Rotation Right 65 Lateral Flexion Left 37 Lateral Flexion 36 Right Shoulder Strength Shoulder Manual Muscle Testing Right Flexion 4 Good Extension 5 Normal Abduction (C5) 4 Good External Rotation 4 Good Internal Rotation 4+ Good+ Left Flexion 4 Good Extension 5 Normal Abduction (C5) 4 Good External Rotation 4+ Good+ Internal Rotation 4+ Good+ Elbow/Forearm Strength Elbow and Forearm Manual Muscle Testing Right Flexion (C6) 5 Normal Extension (C7) 5 Normal Left Flexion (C6) 4+ Good+ Extension (C7) 5 Normal Gym Equipment Cable Column (Body Solid) rotation Resistance 1 plate Reps/Time 10 B cues arms close Triceps Resistance 1plate Reps/Time cues posture and scap position Chops Details downward Resistance 1 plate Reps/Time x12 cued scap position and push through glutes, control Paloff Press Details cued no locking knees, no trunk motion Resistance 1plate Reps/Time 12 reps Rows Details cued control w/eccentric Resistance 2 plates Reps/Time x12 reps pull downs Details cues slow eccentric Resistance 3 plates Reps/Time 10 reps Therapeutic Exercises Sidelying Exercises open book Side bilateral Reps/Minutes 8 Comments cues full tspine motion and head following hand Standing Exercises Wall Slides & Y of Wall Side bilateral Reps/Minutes 3x wall posture Standing Exercise spine roll up wall, humeral ER/ext, CS retraction Name Reps/Minutes 5 sec hold x10 Comments tolerated hold well Physical Therapy Assessment Goals activity Custodial Goal (LTG) Pt will return to working out at gym w/o inc neck pain. 09/30-doing PT exercises but not back to gym yet LTG Duration 2/2 ROM Custodial Goal (LTG) Pt will have at least 70 deg L cervical rotation and at least 50 deg flex and ext of neck w/o inc pain to allow for greater ease with driving and ADLs. 09/30-achieved w/flex/ext, improved rot LTG Duration 11/08 strength Short Term Goal (STG Pt will demonstrate independence w/HEP by being able to ) perform with no more than min cues. STG Duration achieved 09/30 Custodial Goal (LTG) Pt will score at least 4+/5 on all B shoulder and elbow MMT and at least 3/5 EFT to show improved strength to allow pt to return to gym and ADLs w/o inc pain 09/30-much improved LTG Duration 11/08 NDI Impairment 32% Short Term Goal (STG Pt will improve NDI score to no greater than 24% to ) show improved functional ability. STG Duration achieved to 8% 09/30 Custodial Goal (LTG) Pt will improve NDI score to no greater than 4% to show improved functional ability. 09/30-8% but only for lifting which is d/t strength LTG Duration 2 Assessment Summary Assessment At this time, pt has mostly met goals and has no further pain. No limit in function besides weakness and pt encouraged to return to gym. ROM goals almost met and pt to cont HEP. DC at this time to program Physical Therapy Plan Discharge Physical Therapy Discharge Reasons Goals Met
== END 2025-10-06 09:32 | disposition home or self-care (01) ==
LOC: PHYS 13:00
PROVIDERS: Family Provider Family Medicine; PCP Family Medicine; Referring Provider Family Medicine; Visit Provider Family Medicine
DX: M54.12 Radiculopathy, cervical region (principal); R29.3 Abnormal posture; R53.1 Weakness
CPT/HCPCS: 97110; 97140; 97162; 97535